=== PATIENT | female | born 1960 | race Caucasian/White ===

== ENCOUNTER → 2017-01-16 | Outpatient (CLI) | payer MEDICARE ==
--- NOTE | 2017-01-18 10:38 | MM ---
Reason for exam: screening (asymptomatic). Last mammogram was performed 1 year and 5 months ago. History: Patient is postmenopausal. 2 excisional biopsies of the left breast. Taking estrogen for 13 years beginning at age 39. Physical Findings: A clinical breast exam by your physician is recommended on an annual basis and results should be correlated with mammographic findings. MG 3D Screening Mammo W/Cad Bilateral CC and MLO view(s) were taken. Prior study comparison: August 12, 2015, bilateral MG 3d screening mammo w/cad. August 22, 2013, bilateral digital screening mammo w/CAD. The breast tissue is heterogeneously dense. This may lower the sensitivity of mammography. There is no discrete abnormality. No significant changes when compared with prior studies. ASSESSMENT: Negative, BI-RAD 1 RECOMMENDATION: Routine screening mammogram of both breasts in 1 year.
--- NOTE | 2017-01-18 14:24 | BD ---
EXAMINATION TYPE: MG DEXA axial skeleton. DATE OF EXAM: 01/16/2017 2:48 PM COMPARISON: NONE CLINICAL HISTORY: Height: 57.2 IN Weight: 142 LBS FRAX RISK QUESTIONS: Alcohol (3 or more units per day): NO Family History (Parent hip fracture): NO Glucocorticoids (More than 3mos): NO (Ex: prednisone, prednisolone, methylprednisolone, dexamethasone, and hydrocortisone). History of Fracture in Adulthood: NO Secondary Osteoporosis: 1. Type 1 Diabetes: NO 2. Hyperthyroidism: NO 3. Menopause before 45: AGE 38 4. Malnutrition: NO 5. Chronic liver disease: NO Rheumatoid Arthritis: NO Current Tobacco Use: NO RISK FACTORS HISTORY OF: Family History of Osteoporosis: MOTHER Active: YES Diet low in dairy products/other sources of calcium: YES Postmenopausal woman: AGE 38 Take estrogen and/or progesterone medications: YES How long: SINCE AGE 42 MEDICATIONS: Thyroid Medications: YES Which medication: Synthroid How Lon WEEKS Additional Medications: SYNTHROID, PREMARIN, LYRICA,CYMBALTA, PRILOSEC, ESTRAIAL, LYRICA, TORADOL, VO LTARIN GEL, XANAX Additional History: NO EXAM MEASUREMENTS: Bone mineral densitometry was performed using the [employer] System. Bone mineral density as measured about the Lumbar spine is: ----- L1-L4(G/cm2): 1.284 T Score Values are as follows: ----- L2: 0.5 ----- L3: 1.3 ----- L4: 0.9 ----- L1-L4: 0.9 Bone mineral density has: Increased 10.4% since study of: 01/14/2002 Bone mineral density about the R hip (g/cm2): 0.865 Bone mineral density about the L hip (g/cm2): 0.901 T Score values are as follows: -----R Neck: -1.2 -----L Neck: -1.0 -----R Total: -0.3 -----L Total: 0.3 Bone mineral density has: Decreased -3.0% since study of: 01/14/2002 IMPRESSION: Normal (Values between +1 and -1 indicate normal bone mass). Consider repeating this study in 5 year s or sooner if there is some new clinical indication. Bone density has improved 10.4% within the lumbar spine and diminished 3% within the bilateral hips c ompared to 01/14/2002 NOTE: T-SCORE=SD OF THE YOUNG ADULT MEAN.
== END | disposition home or self-care (01) ==
LOC: RADMAMWWP 14:44
PROVIDERS: ATTEND Family Medicine
DX: Z12.31 Encounter for screening mammogram for malignant neoplasm of breast (principal); Z13.820 Encounter for screening for osteoporosis
CPT/HCPCS: 77080; 77063; G0202; 71020

== ENCOUNTER → 2017-01-16 | Outpatient (CLI) | payer MEDICARE ==
--- NOTE | 2017-01-16 16:01 | XR ---
EXAMINATION TYPE: XR chest 2V DATE OF EXAM: 01/16/2017 3:55 PM COMPARISON: NONE TECHNIQUE: PA and lateral views submitted. HISTORY: Hypertension FINDINGS: The lungs are clear and there is no pneumothorax, pleural effusion, or focal pneumonia. Hypertrophi c change of the spine. Surgical clips in the abdomen. Linear changes involving the lung suggestive of scar or atelectasis. Arthropathy involving the shoulders. IMPRESSION: 1. No acute process.
== END ==
LOC: RADXRMAIN 15:38
PROVIDERS: ATTEND Family Medicine
DX: I10 Essential (primary) hypertension (principal); Z00.01 Encounter for general adult medical examination with abnormal findings
CPT/HCPCS: 71020

== ENCOUNTER → 2018-10-24 | Outpatient (CLI) | payer MEDICARE ==
--- NOTE | 2018-10-24 11:42 | XR ---
EXAMINATION TYPE: XR chest 2V DATE OF EXAM: 10/24/2018 COMPARISON: 01/16/2017 TECHNIQUE: PA and lateral views submitted. HISTORY: Presurgical FINDINGS: The lungs are clear and there is no pneumothorax, pleural effusion, or focal pneumonia. Linear beltre ges involving the lung bases are stable compatible with chronic atelectasis or scar. Hypertrophic and degenerative change of the spine. Mild hyperinflation lungs correlate for mild COPD. There is a hiat al hernia. Surgical clips in the upper abdomen are noted. IMPRESSION: 1. No acute process.
== END | disposition home or self-care (01) ==
LOC: RADXRMAIN 11:14
PROVIDERS: ATTEND Family Medicine
DX: Z01.818 Encounter for other preprocedural examination (principal)
CPT/HCPCS: 71046

== ENCOUNTER → 2019-05-12 | Outpatient (CLI) | payer MEDICARE ==
--- NOTE | 2019-05-14 08:59 | MM ---
Reason for exam: screening (asymptomatic). Last mammogram was performed 2 years and 4 months ago. History: Patient is postmenopausal. 2 benign excisional biopsies of the left breast. Taking estrogen for 13 years beginning at age 39. Physical Findings: A clinical breast exam by your physician is recommended on an annual basis and results should be correlated with mammographic findings. MG 3D Screening Mammo W/Cad Bilateral CC and MLO view(s) were taken. Prior study comparison: January 16, 2017, bilateral MG 3d screening mammo w/cad. August 12, 2015, bilateral MG 3d screening mammo w/cad. The breast tissue is heterogeneously dense. This may lower the sensitivity of mammography. No significant changes when compared with prior studies. ASSESSMENT: Negative, BI-RAD 1 RECOMMENDATION: Routine screening mammogram of both breasts in 1 year.
== END | disposition home or self-care (01) ==
LOC: RADMAMWWP 13:44
PROVIDERS: ATTEND Family Medicine
DX: Z12.31 Encounter for screening mammogram for malignant neoplasm of breast (principal)
CPT/HCPCS: 77063; 77067

== ENCOUNTER 2019-05-18 22:48 | Emergency (ER) | payer MEDICARE ==
--- NOTE | 2019-05-18 23:50 | ED ---
General Adult HPI - General Chief complaint: Neuro Symptoms/Deficit Stated complaint: Weakness, SOB Time Seen by Provider: 05/18/19 23:08 Source: patient Mode of arrival: ambulatory - History of Present Illness Initial comments: Dictation was produced using [employer] dictation software. please excuse any grammatical, word or spelling errors. Chief Complaint: 59-year-old male presents with generalized weakness and chest pain. History of Present Illness: Is a 51-year-old female past medical history dyslipidemia hypertension depression. She presents today with generalized. She noticed that her symptoms are worse in her arms. She presents today with who noticed that she is more weak than usual. Patient also complains of some mild chest pressure. She describes it as a squeezing sensation. She denies any cardiac history. Denies any established care with cardiology. Denies any radiation of symptoms to the shoulder or jaw. Patient has any exacerbating or mitigating features. The ROS documented in this emergency department record has been reviewed and confirmed by me. Those systems with pertinent positive or negative responses have been documented in the HPI. All other systems are other negative and/or noncontributory. PHYSICAL EXAM: General Impression: Alert and oriented x3, not in acute distress HEENT: Normocephalic atraumatic, extra-ocular movements intact, pupils equal and reactive to light bilaterally, mucous membranes moist. Cardiovascular: Heart regular rate and rhythm, S1&S2 audible, no murmurs, rubs or gallops Chest: Lungs clear to auscultation bilaterally, no rhonchi, no wheeze, no rales Abdomen: Bowel sounds present, abdomen soft, non-tender, non-distended, no organomegaly Musculoskeletal: Pulses present and equal in all extremities, no peripheral edema Motor: no focal deficits noted, diffuse weakness of all extremities Neurological: CN II-XII grossly intact, no focal motor or sensory deficits noted Skin: Intact with no visualized rashes Psych: Normal affect and mood ED course: 59-year-old female presents with generalized weakness and chest pain. Signs upon arrival are within acceptable limits. Patient has initial NIH of 0. She is weak in all extremities. She has no focal neurologic deficits. Clinical presentation is not consistent with strokelike symptoms. Computed tomography scan of the brain and chest x-ray is unremarkable. Laboratory evaluation obtained. Patient's hemoglobin is 11.2 which is around her patient's baseline. Metabolic panel is unremarkable. Patient has slight elevation of alkaline phosphatase. Urinalysis is unremarkable. She reevaluated bedside with stable medical condition. Patient's lab results and imaging results were discussed with the patient to be unremarkable. At this point no concern for serious life-threatening illness causing patient's symptoms. She does appear to be ambulatory with minimal complications. sHe continues to not have any focal neurologic deficits. Agreeable for discharge. She is told to follow-up with her primary care physician regarding further workup for generalized weakness. Return parameters discussed. EKG interpretation: Ventricular rate 94, normal sinus rhythm,. Interval 156, Q 78, QTc 447. No old EKG for comparison. There is T-wave inversions in lead 3. - Related Data Home Medications Medication Instructions Recorded Confirmed DULoxetine HCL [Cymbalta] 60 mg PO DAILY 08/17/14 05/18/19 Estradiol [Estrace] 1 mg PO DAILY 08/17/14 05/18/19 Omeprazole [PriLOSEC] 20 mg PO DAILY 08/17/14 05/18/19 ALPRAZolam [Xanax] 0.5 mg PO HS 05/18/19 05/18/19 DULoxetine HCL [Cymbalta] 30 mg PO DAILY 05/18/19 05/18/19 Levothyroxine Sodium [Synthroid] 25 mcg PO DAILY 05/18/19 05/18/19 Nebivolol [Bystolic] 5 mg PO BID 05/18/19 05/18/19 Pregabalin [Lyrica] 225 mg PO HS 05/18/19 05/18/19 tiZANidine [Zanaflex] 2 - 3 mg PO HS 05/18/19 05/18/19 Allergies Allergy/AdvReac Type Severity Reaction Status Date / Time codeine Allergy Nausea & Verified 05/18/19 23:13 Vomiting Sulfa (Sulfonamide Allergy Rash/Hives Verified 05/18/19 23:13 Antibiotics) Review of Systems ROS Statement: Those systems with pertinent positive or pertinent negative responses have been documented in the HPI. ROS Other: All systems not noted in ROS Statement are negative. Past Medical History Past Medical History: Hyperlipidemia, Hypertension Additional Past Medical History / Comment(s): migraines episodic biliary colic as a result from choledocholithiasis with gravel from the last ERCP 7 years ago History of Any Multi-Drug Resistant Organisms: None Reported Past Surgical History: Section, Cholecystectomy, Hysterectomy Additional Past Surgical History / Comment(s): thorasic outlet surgery, right s houlder surgery, ERCP 7 years ago Past Anesthesia/Blood Transfusion Reactions: No Reported Reaction Past Psychological History: Depression Smoking Status: Never smoker Past Alcohol Use History: Rare Past Drug Use History: None Reported Course Vital Signs 05/18/19 05/18/19 05/18/19 22:51 23:10 23:42 Temperature 97.8 F 97.6 F Pulse Rate 98 86 90 Respiratory 16 18 18 Rate Blood Pressure 137/76 145/95 136/88 O2 Sat by Pulse 99 99 Oximetry 05/19/19 00:39 Temperature 97.7 F Pulse Rate 80 Respiratory 16 Rate Blood Pressure 125/82 O2 Sat by Pulse 100 Oximetry Medical Decision Making - Lab Data Result diagrams: 05/19/19 00:43 05/19/19 00:43 Lab Results 05/18/19 05/19/19 05/19/19 Range/Units 23:36 00:43 00:43 WBC 7.0 (3.8-10.6) k/uL RBC 4.33 (3.80-5.40) m/uL Hgb 11.2 L (11.4-16.0) gm/dL Hct 33.1 L (34.0-46.0) % MCV 76.3 L (80.0-100.0) fL MCH 26.0 (25.0-35.0) pg MCHC 34.0 (31.0-37.0) g/dL RDW 17.7 H (11.5-15.5) % Plt Count 253 (150-450) k/uL Neutrophils % 63 % Lymphocytes % 26 % Monocytes % 8 % Eosinophils % 1 % Basophils % 0 % Neutrophils # 4.4 (1.3-7.7) k/uL Lymphocytes # 1.8 (1.0-4.8) k/uL Monocytes # 0.5 (0-1.0) k/uL Eosinophils # 0.1 (0-0.7) k/uL Basophils # 0.0 (0-0.2) k/uL Anisocytosis Slight Microcytosis Slight Sodium 140 (137-145) mmol/L Potassium 4.6 (3.5-5.1) mmol/L Chloride 106 (98-107) mmol/L Carbon Dioxide 25 (22-30) mmol/L Anion Gap 9 mmol/L BUN 14 (7-17) mg/dL Creatinine 0.92 (0.52-1.04) mg/dL Est GFR (CKD-EPI)AfAm 80 (>60 ml/min/1.73 sqM) Est GFR (CKD-EPI)NonAf 69 (>60 ml/min/1.73 sqM) Glucose 88 (74-99) mg/dL Calcium 9.3 (8.4-10.2) mg/dL Phosphorus 4.0 (2.5-4.5) mg/dL Magnesium 2.1 (1.6-2.3) mg/dL Total Bilirubin 0.3 (0.2-1.3) mg/dL AST 26 (14-36) U/L ALT 14 (9-52) U/L Alkaline Phosphatase 141 H (38-126) U/L Total Protein 7.0 (6.3-8.2) g/dL Albumin 3.9 (3.5-5.0) g/dL Urine Color Light Yellow Urine Appearance Clear (Clear) Urine pH 5.5 (5.0-8.0) Ur Specific [place] 1.004 (1.001-1.035) Urine Protein Negative (Negative) Urine Glucose (UA) Negative (Negative) Urine Ketones Negative (Negative) Urine Blood Negative (Negative) Urine Nitrite Negative (Negative) Urine Bilirubin Negative (Negative) Urine Urobilinogen <2.0 (<2.0) mg/dL Ur Leukocyte Esterase Negative (Negative) Disposition Clinical Impression: Generalized weakness Disposition: HOME SELF-CARE Condition: Good Instructions (If sedation given, give patient instructions): Weakness (ED) Is patient prescribed a controlled substance at d/c from ED?: No Referrals: Pratik Martines DO [Primary Care Provider] - 1-2 days Time of Disposition: 01:57
[2019-05-18 23:59] LABS: Appearance,Urine Clear (Clear); Bilirubin,Urine Negative (Negative); Blood,Urine Negative (Negative); Color,Urine Light Yellow; Glucose,Urine (UA) Negative (Negative); Ketones,Urine Negative (Negative); Leukocyte Esterase,Urine Negative (Negative); Nitrite,Urine Negative (Negative); PH, Urine 5.5 (5.0-8.0); Protein,Urine Negative (Negative); Specific Gravity,Urine 1.004 (1.001-1.035); Urobilinogen,Urine <2.0 mg/dL (<2.0)
--- NOTE | 2019-05-19 00:32 | XR ---
EXAMINATION TYPE: XR chest 1V portable DATE OF EXAM: 05/19/2019 COMPARISON: 10/24/2018 HISTORY: Weakness TECHNIQUE: Single frontal view of the chest is obtained. FINDINGS: Upright view shows no heart failure nor confluent pneumonic infiltrate. Costophrenic angle s are clear. There are chest leads. IMPRESSION: No active cardiopulmonary disease. Borderline cardiomegaly. No significant change.
--- NOTE | 2019-05-19 00:34 | CT ---
EXAMINATION TYPE: CT brain wo con DATE OF EXAM: 05/19/2019 COMPARISON: 08/25/2009 HISTORY: WEAKNESS CT DLP: 1076.40 mGycm Automated exposure control for dose reduction was used. FINDINGS: Ventricles have normal size. There is no mass effect nor midline shift. There is no sign of intracran ial hemorrhage. Calvarium is intact. There is no sign of cerebral edema. IMPRESSION: NEGATIVE HEAD CT SCAN. NO SIGNIFICANT CHANGE.
[2019-05-19 01:18] LABS: Anisocytosis Slight; Basophils % (A) 0 %; Eosinophils # (A) 0.1 k/uL (0-0.7); Eosinophils % (A) 1 %; HCT 33.1 % (34.0-46.0); HGB 11.2 gm/dL (11.4-16.0); Lymphocytes # (A) 1.8 k/uL (1.0-4.8); Lymphocytes % (A) 26 %; MCV 76.3 fL (80.0-100.0); Microcytosis Slight; Monocytes # (A) 0.5 k/uL (0-1.0); Monocytes % (A) 8 %; Neutrophils # (A) 4.4 k/uL (1.3-7.7); Neutrophils % (A) 63 %; Platelet Count 253 k/uL (150-450); RBC 4.33 m/uL (3.80-5.40); RDW 17.7 % (11.5-15.5)
[2019-05-19 01:47] LABS: Albumin 3.9 g/dL (3.5-5.0); Calcium 9.3 mg/dL (8.4-10.2); Magnesium 2.1 mg/dL (1.6-2.3); Potassium 4.6 mmol/L (3.5-5.1); Total Bilirubin 0.3 mg/dL (0.2-1.3)
[2019-05-19 02:49] VITALS: BP 135/71; PULSE 86; RESP 17; TEMP 98.1
== END 2019-05-19 02:30 | disposition home or self-care (01) ==
LOC: EC 22:48
DX: R53.1 Weakness (principal); R06.02 Shortness of breath; R07.89 Other chest pain; I10 Essential (primary) hypertension; F32.9 Major depressive disorder, single episode, unspecified; Z79.899 Other long term (current) drug therapy; Z79.890 Hormone replacement therapy; Z88.2 Allergy status to sulfonamides; Z88.5 Allergy status to narcotic agent
CPT/HCPCS: 36415; 70450; 71045; 80053; 81003; 83735; 84100; 84484; 85025; 85610; 93005; 99285

== ENCOUNTER 2020-04-18 21:00 | Observation (INO) | payer MEDICARE ==
[2020-04-18] MEDS ORDERED: SODIUM CHLORIDE 0.9% 500 ML 500 ML IV STA (21:04)
[2020-04-18 21:19] LABS: Glucose,Whole Blood 85 mg/dL (75-99)
[2020-04-18 21:24] LABS: Basophils % (A) 1 %; Eosinophils # (A) 0.1 k/uL (0-0.7); Eosinophils % (A) 2 %; HCT 37.6 % (34.0-46.0); HGB 12.2 gm/dL (11.4-16.0); Lymphocytes # (A) 1.6 k/uL (1.0-4.8); Lymphocytes % (A) 35 %; MCH 29.3 pg (25.0-35.0); MCHC 32.6 g/dL (31.0-37.0); MCV 89.8 fL (80.0-100.0); Mean Platelet Volume 7.2; Monocytes # (A) 0.3 k/uL (0-1.0); Monocytes % (A) 6 %; Neutrophils # (A) 2.4 k/uL (1.3-7.7); Neutrophils % (A) 54 %; Platelet Count 183 k/uL (150-450); RBC 4.18 m/uL (3.80-5.40); RDW 14.7 % (11.5-15.5); WBC 4.5 k/uL (3.8-10.6)
[2020-04-18 21:35] LABS: ALT 17 U/L (4-34); AST 25 U/L (14-36); African American GFR (CKD) >90 (>60 ml/min/1.73 sqM); Albumin 3.7 g/dL (3.5-5.0); Alcohol <10 mg/dL; Alkaline Phosphatase 93 U/L (38-126); Anion Gap 4 mmol/L; Blood Urea Nitrogen 9 mg/dL (7-17); Carbon Dioxide 24 mmol/L (22-30); Chloride 109 mmol/L (98-107); Glucose 95 mg/dL (74-99); INR 0.9 (<1.2); Non-African American GFR(CKD) 80 (>60 ml/min/1.73 sqM); Partial Thromboplastin Time 25.7 sec (22.0-30.0); Prothrombin Time 9.7 sec (9.0-12.0); Sodium 137 mmol/L (137-145); Total Bilirubin 0.3 mg/dL (0.2-1.3); Total Protein 6.4 g/dL (6.3-8.2)
--- NOTE | 2020-04-18 21:35 | CT ---
EXAMINATION TYPE: CT brain wo con DATE OF EXAM: 04/18/2020 COMPARISON: 05/19/2019 HISTORY: Syncope. CT DLP: 1086.4 mGycm Automated exposure control for dose reduction was used. Ventricles have normal size. There is no mass effect nor midline shift. There is no sign of intracran ial hemorrhage. There is mild cerebral atrophy. Calvarium is intact. There is no evidence of cerebral edema. IMPRESSION: Negative unenhanced head CT scan. No change.
--- NOTE | 2020-04-18 21:37 | XR ---
EXAMINATION TYPE: XR chest 2V DATE OF EXAM: 04/18/2020 COMPARISON: 05/19/2019 HISTORY: Syncope TECHNIQUE: FINDINGS: There is no heart failure nor confluent pneumonic infiltrate. Costophrenic angles are clear . Heart is probably enlarged. There are chest leads. Bony thorax is intact. IMPRESSION: Mild cardiomegaly. No active cardiopulmonary disease. No change.
--- NOTE | 2020-04-18 21:45 | ED ---
General Adult HPI - General Chief complaint: Syncope Stated complaint: weakness Time Seen by Provider: 04/18/20 21:04 Source: patient, EMS Mode of arrival: EMS Limitations: no limitations - History of Present Illness Initial comments: Patient presents the ED by ambulance for evaluation. Patient states she became weak and lightheaded while sitting down and playing cards tonight, and she states that she then had a syncopal episode. Patient states that she was slumped over to her right side and unable to hold up her head prior to her syncopal episode, but it is unclear whether or not she had focal weakness. Patient states that she has had some chest pressure since her syncopal episode. Per EMS, the patient had no focal weakness or neuro deficit on their initial evaluation, and she continues to have no focal deficit. Patient took 2 baby aspirin prior to EMS arrival, and she was given another 2 baby aspirin by EMS. Patient was also given a dose of nitroglycerin by EMS. Patient states that her chest pressure has now improved. Patient denies trauma or injury, fever or chills, headache, head injury, sensory deficit, visual changes, speech difficulty, neck/back/extremity pain, dyspnea, pleuritic pain, cough or cold symptoms, palpitations, abdominal pain, nausea/vomiting/diarrhea, bloody or melanotic stool, dysuria or urinary symptoms, leg or calf swelling or pain, or any other symptoms or complaints. - Related Data Home Medications Medication Instructions Recorded Confirmed DULoxetine HCL [Cymbalta] 60 mg PO DAILY 08/17/14 05/18/19 Omeprazole [PriLOSEC] 20 mg PO DAILY 08/17/14 05/18/19 estradioL [Estrace] 1 mg PO DAILY 08/17/14 05/18/19 ALPRAZolam [Xanax] 0.5 mg PO HS 05/18/19 05/18/19 DULoxetine HCL [Cymbalta] 30 mg PO DAILY 05/18/19 05/18/19 Levothyroxine Sodium [Synthroid] 25 mcg PO DAILY 05/18/19 05/18/19 Nebivolol [Bystolic] 5 mg PO BID 05/18/19 05/18/19 Pregabalin [Lyrica] 225 mg PO HS 05/18/19 05/18/19 tiZANidine [Zanaflex] 2 - 3 mg PO HS 05/18/19 05/18/19 Allergies Allergy/AdvReac Type Severity Reaction Status Date / Time codeine Allergy Nausea & Verified 05/18/19 23:13 Vomiting Sulfa (Sulfonamide Allergy Rash/Hives Verified 05/18/19 23:13 Antibiotics) Review of Systems ROS Statement: Those systems with pertinent positive or pertinent negative responses have been documented in the HPI. ROS Other: All systems not noted in ROS Statement are negative. Past Medical History Past Medical History: Hyperlipidemia, Hypertension Additional Past Medical History / Comment(s): migraines episodic biliary colic as a result from choledocholithiasis with gravel from the last ERCP 7 years ago History of Any Multi-Drug Resistant Organisms: None Reported Past Surgical History: Section, Cholecystectomy, Hysterectomy Additional Past Surgical History / Comment(s): thorasic outlet surgery, right shoulder surgery, ERCP 7 years ago Past Anesthesia/Blood Transfusion Reactions: No Reported Reaction Past Psychological History: Depression Smoking Status: Never smoker Past Alcohol Use History: Rare Past Drug Use History: None Reported General Exam Limitations: no limitations General appearance: alert, in no apparent distress Head exam: Present: atraumatic, normocephalic Eye exam: Present: normal appearance, PERRL, EOMI ENT exam: Present: mucous membranes moist Neck exam: Present: other (Trachea is in midline). Absent: tenderness, meningismus Respiratory exam: Present: normal lung sounds bilaterally. Absent: respiratory distress, wheezes, rales, rhonchi Cardiovascular Exam: Present: regular rate, normal rhythm, normal heart sounds, other (Normal radial pulses bilaterally) GI/Abdominal exam: Present: soft. Absent: distended, tenderness, guarding Extremities exam: Present: full ROM. Absent: tenderness, pedal edema, calf tenderness Neurological exam: Present: alert, oriented X3, CN II-XII intact. Absent: motor sensory deficit Psychiatric exam: Present: normal affect, normal mood Skin exam: Present: warm, dry, intact, normal color Course Vital Signs 04/18/20 04/18/20 21:04 22:00 Temperature 97.9 F Pulse Rate 66 74 Respiratory 18 16 Rate Blood Pressure 179/94 148/87 O2 Sat by Pulse 99 97 Oximetry - Reevaluation(s) Reevaluation #1: 04/18/20 22:35 Case, H&P, test results and prehospital management were discussed with Dr. Massey. He accepts hospital admission. He has no further recommendations at this time. 04/18/20 23:00 Patient denies development of any new pain or symptoms while in the ED. Patient states that her chest pain has now improved. Patient remains alert and breathing comfortably with a normal room air oxygen saturation. Patient continues to have a nonfocal and normal neurological exam. Patient and are aware the patient's test results, and patient agrees with hospital admission at this time. EKG Findings - EKG Comments: EKG Findings:: Normal sinus rhythm, ventricular rate of 65 bpm, normal WA and QRS intervals, normal QT interval, normal axis, voltage criteria for LVH, no significant change when compared to 05/18/2019 EKG Medical Decision Making - Medical Decision Making Patient's EKG, head CT, chest x-ray and labwork are all fairly unremarkable. Patient has a normal and nonfocal neurological exam, and I do not suspect CVA/TIA. Will admit the patient to the hospital for further evaluation and monitoring given her syncope and chest pain. Dr. Massey has accepted hospital admission. - Lab Data Result diagrams: 04/18/20 21:08 04/18/20 21:08 Lab Results 04/18/20 04/18/20 04/18/20 Range/Units 21:03 21:08 21:08 WBC 4.5 (3.8-10.6) k/uL RBC 4.18 (3.80-5.40) m/uL Hgb 12.2 (11.4-16.0) gm/dL Hct 37.6 (34.0-46.0) % MCV 89.8 (80.0-100.0) fL MCH 29.3 (25.0-35.0) pg MCHC 32.6 (31.0-37.0) g/dL RDW 14.7 (11.5-15.5) % Plt Count 183 (150-450) k/uL Neutrophils % 54 % Lymphocytes % 35 % Monocytes % 6 % Eosinophils % 2 % Basophils % 1 % Neutrophils # 2.4 (1.3-7.7) k/uL Lymphocytes # 1.6 (1.0-4.8) k/uL Monocytes # 0.3 (0-1.0) k/uL Eosinophils # 0.1 (0-0.7) k/uL Basophils # 0.0 (0-0.2) k/uL PT 9.7 (9.0-12.0) sec INR 0.9 (<1.2) APTT 25.7 (22.0-30.0) sec Sodium (137-145) mmol/L Potassium (3.5-5.1) mmol/L Chloride (98-107) mmol/L Carbon Dioxide (22-30) mmol/L Anion Gap mmol/L BUN (7-17) mg/dL Creatinine (0.52-1.04) mg/dL Est GFR (CKD-EPI)AfAm (>60 ml/min/1.73 sqM) Est GFR (CKD-EPI)NonAf (>60 ml/min/1.73 sqM) Glucose (74-99) mg/dL POC Glucose (mg/dL) 85 (75-99) mg/dL POC Glu Storage [employer] Clerk ID Sally Vargas Calcium (8.4-10.2) mg/dL Magnesium (1.6-2.3) mg/dL Total Bilirubin (0.2-1.3) mg/dL AST (14-36) U/L ALT (4-34) U/L Alkaline Phosphatase (38-126) U/L Troponin I (0.000-0.034) ng/mL Total Protein (6.3-8.2) g/dL Albumin (3.5-5.0) g/dL Urine Color Urine Appearance (Clear) Urine pH (5.0-8.0) Ur Specific [place] (1.001-1.035) Urine Protein (Negative) Urine Glucose (UA) (Negative) Urine Ketones (Negative) Urine Blood (Negative) Urine Nitrite (Negative) Urine Bilirubin (Negative) Urine Urobilinogen (<2.0) mg/dL Ur Leukocyte Esterase (Negative) Serum Alcohol mg/dL 04/18/20 04/18/20 04/18/20 Range/Units 21:08 21:08 21:08 WBC (3.8-10.6) k/uL RBC (3.80-5.40) m/uL Hgb (11.4-16.0) gm/dL Hct (34.0-46.0) % MCV (80.0-100.0) fL MCH (25.0-35.0) pg MCHC (31.0-37.0) g/dL RDW (11.5-15.5) % Plt Count (150-450) k/uL Neutrophils % % Lymphocytes % % Monocytes % % Eosinophils % % Basophils % % Neutrophils # (1.3-7.7) k/uL Lymphocytes # (1.0-4.8) k/uL Monocytes # (0-1.0) k/uL Eosinophils # (0-0.7) k/uL Basophils # (0-0.2) k/uL PT (9.0-12.0) sec INR (<1.2) APTT (22.0-30.0) sec Sodium 137 (137-145) mmol/L Potassium 4.0 (3.5-5.1) mmol/L Chloride 109 H (98-107) mmol/L Carbon Dioxide 24 (22-30) mmol/L Anion Gap 4 mmol/L BUN 9 (7-17) mg/dL Creatinine 0.81 (0.52-1.04) mg/dL Est GFR (CKD-EPI)AfAm >90 (>60 ml/min/1.73 sqM) Est GFR (CKD-EPI)NonAf 80 (>60 ml/min/1.73 sqM) Glucose 95 (74-99) mg/dL POC Glucose (mg/dL) (75-99) mg/dL POC Glu Storage [employer] Clerk ID Calcium 9.0 (8.4-10.2) mg/dL Magnesium 2.0 (1.6-2.3) mg/dL Total Bilirubin 0.3 (0.2-1.3) mg/dL AST 25 (14-36) U/L ALT 17 (4-34) U/L Alkaline Phosphatase 93 (38-126) U/L Troponin I <0.012 (0.000-0.034) ng/mL Total Protein 6.4 (6.3-8.2) g/dL Albumin 3.7 (3.5-5.0) g/dL Urine Color Light Yellow Urine Appearance Clear (Clear) Urine pH 5.5 (5.0-8.0) Ur Specific [place] 1.006 (1.001-1.035) Urine Protein Negative (Negative) Urine Glucose (UA) Negative (Negative) Urine Ketones Negative (Negative) Urine Blood Negative (Negative) Urine Nitrite Negative (Negative) Urine Bilirubin Negative (Negative) Urine Urobilinogen <2.0 (<2.0) mg/dL Ur Leukocyte Esterase Negative (Negative) Serum Alcohol <10 mg/dL - Radiology Data Radiology results: report reviewed (Noncontrast head CT is negative), image reviewed (Chest x-ray is negative) Disposition Clinical Impression: Syncope, Chest pain, Weakness Disposition: ADMITTED IP TO THIS [facility] Condition: Stable Is patient prescribed a controlled substance at d/c from ED?: No Time of Disposition: 22:37
[2020-04-18 22:54] LABS: Appearance,Urine Clear (Clear); Bilirubin,Urine Negative (Negative); Blood,Urine Negative (Negative); Color,Urine Light Yellow; Glucose,Urine (UA) Negative (Negative); Ketones,Urine Negative (Negative); Leukocyte Esterase,Urine Negative (Negative); Nitrite,Urine Negative (Negative); PH, Urine 5.5 (5.0-8.0); Protein,Urine Negative (Negative); Specific Gravity,Urine 1.006 (1.001-1.035); Urobilinogen,Urine <2.0 mg/dL (<2.0)
[2020-04-19] MEDS: SODIUM CHLORIDE 0.9% 1,000 ML IV SCH ×2 (01:44→11:15)
[2020-04-19] MEDS ORDERED: ALPRAZolam 0.25 MG TAB PO PRN (03:00)
[2020-04-19 03:35] LABS: Basophils % (A) 1 %; Eosinophils # (A) 0.1 k/uL (0-0.7); Eosinophils % (A) 1 %; HCT 37.5 % (34.0-46.0); Lymphocytes # (A) 1.9 k/uL (1.0-4.8); Lymphocytes % (A) 38 %; MCH 29.2 pg (25.0-35.0); MCV 91.4 fL (80.0-100.0); Mean Platelet Volume 7.4; Monocytes # (A) 0.4 k/uL (0-1.0); Monocytes % (A) 7 %; Neutrophils # (A) 2.5 k/uL (1.3-7.7); Neutrophils % (A) 51 %; Platelet Count 213 k/uL (150-450); RBC 4.11 m/uL (3.80-5.40); RDW 14.7 % (11.5-15.5); WBC 4.9 k/uL (3.8-10.6)
[2020-04-19 03:42] LABS: ALT 16 U/L (4-34); AST 25 U/L (14-36); African American GFR (CKD) >90 (>60 ml/min/1.73 sqM); Albumin 3.4 g/dL (3.5-5.0); Alkaline Phosphatase 86 U/L (38-126); Anion Gap 5 mmol/L; Blood Urea Nitrogen 7 mg/dL (7-17); Calcium 8.6 mg/dL (8.4-10.2); Carbon Dioxide 24 mmol/L (22-30); Chloride 109 mmol/L (98-107); Glucose 91 mg/dL (74-99); Non-African American GFR(CKD) >90 (>60 ml/min/1.73 sqM); Sodium 138 mmol/L (137-145); Total Bilirubin 0.3 mg/dL (0.2-1.3)
[2020-04-19] MEDS: LEVOTHYROXINE 25 MCG TAB PO SCH (06:27)
[2020-04-19] MEDS ORDERED: KETOROLAC 30 MG/ML 1 ML VIAL IM PRN (09:00)
[2020-04-19] MEDS ORDERED: hydrALAZINE HCL 25 MG TAB PO PRN (09:42)
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
[2020-04-19] MEDS: DULoxetine HCL 60 MG CAPSULE.DR PO SCH (10:05)
[2020-04-19] MEDS: DULoxetine HCL 30 MG CAPSULE.DR PO SCH (10:06)
[2020-04-19] MEDS: PANTOPRAZOLE 40 MG TABLET PO SCH (10:06)
[2020-04-19] MEDS: NEBIVOLOL 5 MG TAB PO SCH ×2 (10:06→20:11)
[2020-04-19] MEDS: ASPIRIN 81 MG PO SCH (10:06)
[2020-04-19] MEDS: ATORVASTATIN 40 MG TAB PO SCH (10:07)
--- NOTE | 2020-04-19 12:05 | ECHOF ---
Referral Reason:htn MEASUREMENTS -------- HEIGHT: 147.3 cm WEIGHT: 72.6 kg BP: 145/80 RVIDd: 3.0 cm (< 3.3) IVSd: 1.2 cm (0.6 - 1.1) LVIDd: 3.6 cm (3.9 - 5.3) LVPWd: 1.2 cm (0.6 - 1.1) IVSs: 1.5 cm LVIDs: 2.5 cm LVPWs: 1.7 cm LAESV Index (A-L): 26.33 ml/m Ao Diam: 2.9 cm (2.0 - 3.7) AV Cusp: 1.9 cm (1.5 - 2.6) MV EXCURSION: 14.883 mm (> 18.000) MV EF SLOPE: 66 mm/s (70 - 150) EPSS: 0.4 cm MV E Nathan: 0.84 m/s MV DecT: 216 ms MV A Nathan: 0.90 m/s MV E/A Ratio: 0.93 AR PHT: 650 ms RAP: 5.00 mmHg RVSP: 24.37 mmHg FINDINGS -------- Sinus rhythm. This was a technically adequate study. The left ventricular size is normal. There is mild concentric left ventricular hypertrophy. There is normal global left ventricular contractility. Overall left ventricular systolic function is nor mal with, an EF between 55 - 60 %. The diastolic filling pattern is normal for the age of the patie nt {E/E'}. The right ventricle is normal in size. Normal LA size by volume 22+/-6 ml/m2. The right atrium was not well visualized. Interatrial and interventricular septum intact. The aortic valve is trileaflet and appears structurally normal. There is moderate aortic regurgitat ion. There is no evidence of aortic stenosis. The mitral valve is normal. [id number] mitral regurgitation is present. Mild tricuspid regurgitation present. Right ventricular systolic pressure is normal at < 35 mmHg. The right ventricular systolic pressure, as measured by Doppler, is 24.37mmHg. There is no pulmonic regurgitation present. The aortic root size is normal. Normal inferior vena cava with normal inspiratory collapse consistent with estimated right atrial pre ssure of 5 mmHg. There is no pericardial effusion. CONCLUSIONS -------- 1. There is mild concentric left ventricular hypertrophy. 2. There is normal global left ventricular contractility. 3. Overall left ventricular systolic function is normal with, an EF between 55 - 60 %. 4. Normal LA size by volume 22+/-6 ml/m2. 5. The aortic valve is trileaflet and appears structurally normal. 6. There is moderate aortic regurgitation. 7. Rvaq-ua-umakrttu mitral regurgitation is present. 8. Mild tricuspid regurgitation present. 9. There is no pericardial effusion. LINUX SERVER ENGINEER: Brandie Nelson RDCS
--- NOTE | 2020-04-19 12:16 | US ---
EXAMINATION TYPE: US carotid duplex BILAT DATE OF EXAM: 04/19/2020 COMPARISON: NONE CLINICAL HISTORY: TIA. EXAM MEASUREMENTS: RIGHT: Peak Systolic Velocity (PSV) cm/sec ----- Right CCA: 47.6 ----- Right ICA: 75.7 ----- Right ECA: 65.8 ICA/CCA ratio: 1.6 RIGHT: End Diastole cm/sec ----- Right CCA: 14.9 ----- Right ICA: 24.1 ----- Right ECA: 12.0 LEFT: Peak Systolic Velocity (PSV) cm/sec ----- Left CCA: 84.5 ----- Left ICA: 134.5 ----- Left ECA: 74.6 ICA/CCA ratio: 1.6 LEFT: End Diastole cm/sec ----- Left CCA: 29.6 ----- Left ICA: 39.3 ----- Left ECA: 7.6 VERTEBRALS (direction of flow): Right Vertebral: Antegrade Left Vertebral: Antegrade Rhythm: Normal No significant stenosis seen. IMPRESSION: No hemodynamically significant stenosis of the bilateral carotid arteries. Any stenosi s may be present is less than 50%. Criteria for Assigning % of Stenosis / Diameter reduction (Estimation based on the indirect measurements of the internal carotid artery velocities (ICA PSV). 1. Normal (no stenosis)=ICA PSV < 125 cm/s: ratio < 2.0: ICA EDV<40 cm/s. 2. Less than 50% stenosis=ICA PSV < 125 cm/s: ratio < 2.0: ICA EDV<40 cm/s. 3. 50 to 69% stenosis=ICA PSV of 125 to 230 cm/s: ration 2.0 ? 4.0: ICA EDV 40-100 cm/s. 4. Greater than 70% stenosis to near occlusion= ICA PSV > 230 cm/s: ratio > 4.0: ICA EDV > 100 cm/s. 5. Near occlusion= ICA PSV velocities may be low or undetectable: variable ratio and ICA EDV. 6. Total occlusion=unable to detect flow.
--- NOTE | 2020-04-19 12:24 | CONS ---
CONSULTATION Mrs. Ardon is a 60-year-old female with a known history of hypertension who presented with an episode of right upper extremity weakness as well as slurred speech. It occurred while she was sitting. Subsequently felt quite dizzy and presyncopal. At this time, she is pain free. She felt some palpitation in the chest and some fluttering and she site had some chest heaviness at that time, but not in the past. The patient is not very active physically because of severe arthritic pain in the right hip. She has no prior history of cardiac disease. She was at [facility] about 2 months ago and at that time was stable from the cardiac standpoint. According to her, she was scheduled to be seen by Dr. Bruner as an outpatient. She denies any documented malignant arrhythmia or atrial fibrillation. She has no history of coronary artery disease. She has no syncope, peripheral edema. No PND or orthopnea. No syncope. The episode occurred yesterday while she was playing cards. She called her but had the slurred speech and she had the weakness in the right upper extremity, she could not keep it up. She has no prior history of stroke according to her. Her coronary risk factors are remarkable for hypertension, she is nondiabetic, nonsmoker. Her lipid profile is not available. Her medication at home, Zanaflex, Estrace, Lyrica, Prilosec, Bystolic, Synthroid, Cymbalta, and Xanax on a p.r.n. basis. REVIEW OF SYSTEMS: RESPIRATORY SYSTEM: She has no recent wheezing or cough. No history of documented obstructive lung disease. GI SYSTEM: No recent GI bleeding, no peptic ulcer disease. SYSTEM: No dysuria or hematuria. NERVOUS SYSTEM: No stroke or seizure. PHYSICAL EXAMINATION: She is a 60-year-old female, alert, oriented, in no apparent distress. Blood pressure 145/80 with a heart rate in the 70s. HEAD: Normocephalic. EYES: Sclerae nonicteric. NECK: Good upstroke, no bruit, no jugular venous distention. LUNGS: Clear to auscultation. HEART: Regular rate and rhythm, S1, S2. No S3. No S4. No murmur or rub. ABDOMEN: Soft, nontender, positive bowel sounds, no organomegaly. EXTREMITIES: No edema, intact pulses. LAB DATA: Revealed BUN and creatinine 7 and 0.65, potassium 4.0, hemoglobin of 12. A troponin less than 0.012 for 3 samples. EKG revealed a sinus mechanism, normal axis and intervals with minor nonspecific ST-T wave changes with evidence of left ventricular hypertrophy. Chest x-ray shows no acute infiltrate. CT scan revealed no acute lesion. IMPRESSION: 1. Probable TIA with right upper extremity weakness and slurred speech, resolved. 2. Hypertension. 3. Symptoms of palpitation, but no evidence of documented arrhythmia. 4. Chest discomfort, has atypical features for ischemic heart disease, no evidence for acute coronary artery syndrome. RECOMMENDATION: I will add to her regimen an aspirin daily and will also start her on a statin. I will obtain an echocardiogram with Doppler, increase her level activity. The patient may require neurological evaluation. She is scheduled to undergo a carotid duplex scan. If she remains stable from the cardiac standpoint, she may be able to be discharged home and followed as an outpatient with Dr. Bruner. Thank you for this consult. Will follow with you. MMODL / IJN: [id number] /
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
[2020-04-19] MEDS ORDERED: tiZANidine 4 MG TAB PO SCH (21:00)
[2020-04-19] MEDS ORDERED: ALPRAZolam 0.5 MG TAB PO SCH (21:00)
[2020-04-19] MEDS ORDERED: PREGABALIN 75 MG CAP PO SCH (21:00)
[2020-04-20] MEDS: SODIUM CHLORIDE 0.9% 1,000 ML IV SCH (01:33)
[2020-04-20 04:16] VITALS: RESP 16
[2020-04-20] MEDS: LEVOTHYROXINE 25 MCG TAB PO SCH (06:21)
[2020-04-20 06:35] LABS: Basophils % (A) 1 %; Eosinophils # (A) 0.1 k/uL (0-0.7); Eosinophils % (A) 2 %; HCT 37.9 % (34.0-46.0); Lymphocytes # (A) 1.5 k/uL (1.0-4.8); Lymphocytes % (A) 34 %; MCH 28.7 pg (25.0-35.0); MCHC 31.7 g/dL (31.0-37.0); MCV 90.8 fL (80.0-100.0); Mean Platelet Volume 7.2; Monocytes # (A) 0.3 k/uL (0-1.0); Monocytes % (A) 6 %; Neutrophils # (A) 2.4 k/uL (1.3-7.7); Neutrophils % (A) 55 %; Platelet Count 182 k/uL (150-450); RBC 4.18 m/uL (3.80-5.40); RDW 14.8 % (11.5-15.5); WBC 4.3 k/uL (3.8-10.6)
[2020-04-20 06:52] LABS: ALT 17 U/L (4-34); AST 24 U/L (14-36); African American GFR (CKD) >90 (>60 ml/min/1.73 sqM); Albumin 3.2 g/dL (3.5-5.0); Alkaline Phosphatase 84 U/L (38-126); Anion Gap 3 mmol/L; Blood Urea Nitrogen 7 mg/dL (7-17); Calcium 8.6 mg/dL (8.4-10.2); Carbon Dioxide 25 mmol/L (22-30); Chloride 112 mmol/L (98-107); Glucose 88 mg/dL (74-99); Non-African American GFR(CKD) >90 (>60 ml/min/1.73 sqM); Potassium 4.1 mmol/L (3.5-5.1); Sodium 140 mmol/L (137-145); Total Bilirubin 0.3 mg/dL (0.2-1.3); Total Protein 5.6 g/dL (6.3-8.2)
[2020-04-20 07:53] VITALS: BP 136/70; PULSE 72; TEMP 98.3
[2020-04-20] MEDS: ATORVASTATIN 40 MG TAB PO SCH (08:41)
[2020-04-20] MEDS: DULoxetine HCL 60 MG CAPSULE.DR PO SCH (08:41)
[2020-04-20] MEDS: PANTOPRAZOLE 40 MG TABLET PO SCH (08:41)
[2020-04-20] MEDS: ASPIRIN 81 MG PO SCH (08:41)
[2020-04-20] MEDS: NEBIVOLOL 5 MG TAB PO SCH (08:41)
[2020-04-20] MEDS: DULoxetine HCL 30 MG CAPSULE.DR PO SCH (08:41)
[2020-04-20] MEDS ORDERED: amLODIPine 5 MG TAB PO SCH (09:00)
--- NOTE | 2020-04-20 10:23 | P.DS ---
Providers Date of admission: 04/18/20 22:37 Expected date of discharge: 04/20/20 Attending physician: Lamonte Massey Consults: 04/19/20 09:18 Consult Physician Routine Consulting Provider: Chelsi Jonas Consult Reason/Comments: CP Do you want consulting provider notified?: Yes 04/19/20 09:24 Consult Physician Routine Consulting Provider: Diego Molina Consult Reason/Comments: TIA Do you want consulting provider notified?: Yes Primary care physician: Pratik [facility] Course: 60-year-old female one of Dr. Zaragoza patient with past medical history of hypertension, hyperlipidemia, hypothyroidism, thoracic outlet syndrome, who has been doing well seen pain management and neurology to [facility] 4 severe headache has been on high-dose of Lyrica. Patient was sitting in her house yesterday when she had episode of migraine become severely worse she felt her vision was wavy she could not hear has been talked could not speak developed to have significant right arm numbness and weakness and all of a sudden developed to have significant midsternal chest pain and discomfort radiating toward the right side and the left upper side associated with mild nausea and palpitation her blood pressure was 203/125 patient's family ended up calling EMS brought her to the emergency department at [facility] her first CK was negative CT of the brain didn't show any abnormality patient was hospitalized be seeing cardiology and neurology workup for TIA urgent hypertension and chest pain will be done. According to patient has been seen Dr. MARJORIE nichols at the scheduled for stress test in April. 04/20 patient was seen this morning resting comfortably in bed, reviewed echo and carotid testing. Recommended discharge on Plavix and follow up with Dr. MARJORIE Bruner as outpatient, Patient will likely need a event monitor to look for any irregular heart rhythm. Assessment: 1 atypical chest pain: 2 TIA: 3 severe hypertension: 4 hypothyroidism: 5 chronic headache 6 severe GERD: 7 anxiety attacks: Discharge plan: Home with self-care Impression and plan of care have been directed as dictated by the signing physician. Domi Serrano nurse practitioner acting as scribe for signing physician. Patient Condition at Discharge: Stable Plan - Discharge Summary Discharge Rx Participant: No New Discharge Prescriptions: New Aspirin 81 mg PO DAILY chew Atorvastatin [Lipitor] 40 mg PO DAILY #30 tab amLODIPine [Norvasc] 5 mg PO DAILY #30 tab Clopidogrel Bisulfate [Plavix] 75 mg PO DAILY #30 tab Pantoprazole [Protonix] 20 mg PO DAILY #30 tablet.dr Continue estradioL [Estrace] 1 mg PO Q48H DULoxetine HCL [Cymbalta] 60 mg PO DAILY tiZANidine [Zanaflex] 2 mg PO HS ALPRAZolam [Xanax] 0.5 mg PO HS Nebivolol [Bystolic] 5 mg PO BID Levothyroxine Sodium [Synthroid] 25 mcg PO DAILY DULoxetine HCL [Cymbalta] 30 mg PO DAILY Pregabalin [Lyrica] 225 mg PO HS ALPRAZolam [Xanax] 0.25 mg PO DAILY PRN PRN Reason: Anxiety Discontinued Omeprazole [PriLOSEC] 20 mg PO DAILY Ketorolac Tromethamine 60mg/2ml Injection 60 mg IM DAILY PRN PRN Reason: Migraine Headache Discharge Medication List DULoxetine HCL [Cymbalta] 60 mg PO DAILY 08/17/14 [History] estradioL [Estrace] 1 mg PO Q48H 08/17/14 [History] ALPRAZolam [Xanax] 0.5 mg PO HS 05/18/19 [History] DULoxetine HCL [Cymbalta] 30 mg PO DAILY 05/18/19 [History] Levothyroxine Sodium [Synthroid] 25 mcg PO DAILY 05/18/19 [History] Nebivolol [Bystolic] 5 mg PO BID 05/18/19 [History] Pregabalin [Lyrica] 225 mg PO HS 05/18/19 [History] tiZANidine [Zanaflex] 2 mg PO HS 05/18/19 [History] ALPRAZolam [Xanax] 0.25 mg PO DAILY PRN 04/18/20 [History] Aspirin 81 mg PO DAILY chew 04/20/20 [Rx] Atorvastatin [Lipitor] 40 mg PO DAILY #30 tab 04/20/20 [Rx] Clopidogrel Bisulfate [Plavix] 75 mg PO DAILY #30 tab 04/20/20 [Rx] Pantoprazole [Protonix] 20 mg PO DAILY #30 tablet. 04/20/20 [Rx] amLODIPine [Norvasc] 5 mg PO DAILY #30 tab 04/20/20 [Rx] Follow up Appointment(s)/Referral(s): Brandi Bruner MD [STAFF PHYSICIAN] - 04/26/20 2:45 pm Pratik Martines DO [Primary Care Provider] - 1-2 days (will call to schedule ) Patient Instructions/Handouts: Transient Ischemic Attack (DC), Syncope (DC) Discharge Disposition: HOME SELF-CARE
== END 2020-04-20 09:12 | disposition home or self-care (01) ==
LOC: EC 21:00 → 3NCARDOBS 22:37
PROVIDERS: ADMIT Internal Medicine; ATTEND Internal Medicine
DX: R07.89 Other chest pain (principal); G45.9 Transient cerebral ischemic attack, unspecified; I10 Essential (primary) hypertension; E03.9 Hypothyroidism, unspecified; G43.909 Migraine, unspecified, not intractable, without status migrainosus; K21.9 Gastro-esophageal reflux disease without esophagitis; F41.1 Generalized anxiety disorder; E78.5 Hyperlipidemia, unspecified; F32.9 Major depressive disorder, single episode, unspecified; G54.0 Brachial plexus disorders; R20.0 Anesthesia of skin; R11.0 Nausea; R00.2 Palpitations; M16.11 Unilateral primary osteoarthritis, right hip; I08.0 Rheumatic disorders of both mitral and aortic valves; E86.0 Dehydration; E66.9 Obesity, unspecified; Z68.33 Body mass index [BMI] 33.0-33.9, adult; Z79.899 Other long term (current) drug therapy; Z79.890 Hormone replacement therapy; Z88.5 Allergy status to narcotic agent; Z88.2 Allergy status to sulfonamides; Z90.49 Acquired absence of other specified parts of digestive tract; Z90.710 Acquired absence of both cervix and uterus; Z96.641 Presence of right artificial hip joint; Z96.651 Presence of right artificial knee joint; Z82.49 Family history of ischemic heart disease and other diseases of the circulatory system; Z82.3 Family history of stroke; Z80.8 Family history of malignant neoplasm of other organs or systems; Z82.0 Family history of epilepsy and other diseases of the nervous system
CPT/HCPCS: 96361 ×2; 96372; 96360; 99285; 36415; 93005; 93306; 80053 ×3; 83735; 84484 ×2; 85025 ×3; 85610; 85730; 81003; 71046; 93880; 70450; G0378 ×3; G0480; J1885; 80320

== ENCOUNTER 2020-08-24 16:31 | Inpatient (IN) | payer MEDICARE ==
[2020-08-24] MEDS ORDERED: SODIUM CHLORIDE 0.9% 500 ML 500 ML IV STA (16:35)
--- NOTE | 2020-08-24 16:51 | ED ---
General Adult HPI - General Stated complaint: poss stroke Time Seen by Provider: 08/24/20 16:31 Source: patient, RN notes reviewed, old records reviewed - History of Present Illness Initial comments: This is a 60-year-old female who presents emergency Department complaining of right-sided weakness. Patient states she had a stroke back in April. Patient states she had right arm and right leg weakness but currently her right arm seems to be back to normal. Patient states her leg still feels somewhat weak. Patient denies any recent fever chills or cough. Patient denies any difficulty breathing or shortness of breath. Patient does however complain of some chest heaviness and that started on the way in. Patient denies any abdominal pain patient's nausea vomiting diarrhea. Patient denies any dysuria hematuria urinary frequency. - Related Data Home Medications Medication Instructions Recorded Confirmed DULoxetine HCL [Cymbalta] 60 mg PO DAILY 08/17/14 08/24/20 ALPRAZolam [Xanax] 0.5 mg PO HS 05/18/19 08/24/20 DULoxetine HCL [Cymbalta] 30 mg PO DAILY 05/18/19 08/24/20 Levothyroxine Sodium [Synthroid] 25 mcg PO DAILY 05/18/19 08/24/20 Pregabalin [Lyrica] 225 mg PO HS 05/18/19 08/24/20 tiZANidine [Zanaflex] 2 mg PO HS 05/18/19 08/24/20 ALPRAZolam [Xanax] 0.5 mg PO DAILY PRN 04/18/20 08/24/20 Galcanezumab-Gnlm [Emgality] 120 mg SQ QMONTHLY 08/24/20 08/24/20 Metoprolol Tartrate 25 mg PO BID 08/24/20 08/24/20 Omeprazole 20 mg PO BID 08/24/20 08/24/20 cloNIDine HCL [Catapres] 0.1 mg PO BID PRN 08/24/20 08/24/20 Previous Rx's Medication Instructions Recorded Aspirin 81 mg PO DAILY chew 04/20/20 Clopidogrel Bisulfate [Plavix] 75 mg PO DAILY #30 tab 04/20/20 amLODIPine [Norvasc] 5 mg PO DAILY #30 tab 04/20/20 Allergies Allergy/AdvReac Type Severity Reaction Status Date / Time codeine Allergy Nausea & Verified 08/24/20 17:19 Vomiting Sulfa (Sulfonamide Allergy Rash/Hives Verified 08/24/20 17:19 Antibiotics) Review of Systems ROS Statement: Those systems with pertinent positive or pertinent negative responses have been documented in the HPI. ROS Other: All systems not noted in ROS Statement are negative. Past Medical History Past Medical History: Hyperlipidemia, Hypertension Additional Past Medical History / Comment(s): migraines episodic biliary colic as a result from choledocholithiasis with gravel from the last ERCP 7 years ago History of Any Multi-Drug Resistant Organisms: None Reported Past Surgical History: Section, Cholecystectomy, Hysterectomy Additional Past Surgical History / Comment(s): thorasic outlet surgery, right shoulder surgery, ERCP 7 years ago. pt. also states that she has a right hip and knee replacements from 2014 for the knee and 2017 for the hip Past Anesthesia/Blood Transfusion Reactions: No Reported Reaction Past Psychological History: Depression Smoking Status: Never smoker Past Alcohol Use History: Rare Past Drug Use History: None Reported General Exam - General Exam Comments Initial Comments: GENERAL: Patient is well-developed and well-nourished. Patient is nontoxic and well- hydrated and is in mild distress. ENT: Neck is soft and supple. No significant lymphadenopathy is noted. Oropharynx is clear. Moist mucous membranes. Neck has full range of motion without eliciting any pain. EYES: The sclera were anicteric and conjunctiva were pink and moist. Extraocular movements were intact and pupils were equal round and reactive to light. Eyelids were unremarkable. PULMONARY: Unlabored respirations. Good breath sounds bilaterally. No audible rales rhonchi or wheezing was noted. CARDIOVASCULAR: There is a regular rate and rhythm without any murmurs gallops or rubs. ABDOMEN: Soft and nontender with normal bowel sounds. SKIN: Skin is clear with no lesions or rashes and otherwise unremarkable. NEUROLOGIC: Patient is alert and oriented x3. Cranial nerves II through XII are grossly intact. Patient's bilateral client liaison is normal. Patient has some decreased dorsi and plantar flexion 4 out of 5 on the right. Patient's finger to nose testing is normal bilaterally MUSCULOSKELETAL: Normal extremities with adequate strength and full range of motion. LYMPHATICS: No significant lymphadenopathy is noted PSYCHIATRIC: Normal psychiatric evaluation. Course Vital Signs 08/24/20 08/24/20 08/24/20 16:35 16:36 16:45 Temperature 98.0 F Pulse Rate 18 L 70 68 Respiratory 71 H 18 18 Rate Blood Pressure 179/100 179/100 160/95 O2 Sat by Pulse 99 99 Oximetry 08/24/20 08/24/20 08/24/20 17:00 17:15 17:30 Temperature Pulse Rate 64 68 Respiratory 16 16 Rate Blood Pressure 163/91 154/83 160/88 O2 Sat by Pulse 99 99 Oximetry 08/24/20 08/24/20 08/24/20 17:45 18:00 18:15 Temperature Pulse Rate 67 70 Respiratory 16 16 Rate Blood Pressure 139/98 150/92 152/85 O2 Sat by Pulse 98 99 100 Oximetry Medical Decision Making - Medical Decision Making EKG shows normal sinus rhythm at 60 bpm WV interval 166 dresses 84 QT interval 44 QTC is 429 per patient's EKG shows no ST segment elevation or depression. CT of the brain shows no acute abnormality. CT angiogram of the head and neck show no acute abnormality. - Lab Data Result diagrams: 08/24/20 16:57 08/24/20 16:57 Lab Results 08/24/20 08/24/20 08/24/20 Range/Units 16:52 16:57 16:57 WBC 5.2 (3.8-10.6) k/uL RBC 4.25 (3.80-5.40) m/uL Hgb 11.9 (11.4-16.0) gm/dL Hct 36.9 (34.0-46.0) % MCV 86.7 (80.0-100.0) fL MCH 28.1 (25.0-35.0) pg MCHC 32.4 (31.0-37.0) g/dL RDW 15.1 (11.5-15.5) % Plt Count 243 (150-450) k/uL MPV 6.9 Neutrophils % 60 % Lymphocytes % 27 % Monocytes % 8 % Eosinophils % 2 % Basophils % 1 % Neutrophils # 3.1 (1.3-7.7) k/uL Lymphocytes # 1.4 (1.0-4.8) k/uL Monocytes # 0.4 (0-1.0) k/uL Eosinophils # 0.1 (0-0.7) k/uL Basophils # 0.0 (0-0.2) k/uL PT 10.5 (9.0-12.0) sec INR 1.0 (<1.2) APTT 27.0 (22.0-30.0) sec Sodium (137-145) mmol/L Potassium (3.5-5.1) mmol/L Chloride (98-107) mmol/L Carbon Dioxide (22-30) mmol/L Anion Gap mmol/L BUN (7-17) mg/dL Creatinine (0.52-1.04) mg/dL Est GFR (CKD-EPI)AfAm (>60 ml/min/1.73 sqM) Est GFR (CKD-EPI)NonAf (>60 ml/min/1.73 sqM) Glucose (74-99) mg/dL POC Glucose (mg/dL) 90 (75-99) mg/dL POC Glu Mitering Machine Operator ID [email or web address], Bartolome Calcium (8.4-10.2) mg/dL Total Bilirubin (0.2-1.3) mg/dL AST (14-36) U/L ALT (4-34) U/L Alkaline Phosphatase (38-126) U/L Troponin I (0.000-0.034) ng/mL Total Protein (6.3-8.2) g/dL Albumin (3.5-5.0) g/dL 08/24/20 08/24/20 Range/Units 16:57 16:57 WBC (3.8-10.6) k/uL RBC (3.80-5.40) m/uL Hgb (11.4-16.0) gm/dL Hct (34.0-46.0) % MCV (80.0-100.0) fL MCH (25.0-35.0) pg MCHC (31.0-37.0) g/dL RDW (11.5-15.5) % Plt Count (150-450) k/uL MPV Neutrophils % % Lymphocytes % % Monocytes % % Eosinophils % % Basophils % % Neutrophils # (1.3-7.7) k/uL Lymphocytes # (1.0-4.8) k/uL Monocytes # (0-1.0) k/uL Eosinophils # (0-0.7) k/uL Basophils # (0-0.2) k/uL PT (9.0-12.0) sec INR (<1.2) APTT (22.0-30.0) sec Sodium 136 L (137-145) mmol/L Potassium 3.8 (3.5-5.1) mmol/L Chloride 107 (98-107) mmol/L Carbon Dioxide 26 (22-30) mmol/L Anion Gap 3 mmol/L BUN 8 (7-17) mg/dL Creatinine 0.65 (0.52-1.04) mg/dL Est GFR (CKD-EPI)AfAm >90 (>60 ml/min/1.73 sqM) Est GFR (CKD-EPI)NonAf >90 (>60 ml/min/1.73 sqM) Glucose 88 (74-99) mg/dL POC Glucose (mg/dL) (75-99) mg/dL POC Glu Mitering Machine Operator ID Calcium 8.4 (8.4-10.2) mg/dL Total Bilirubin 0.3 (0.2-1.3) mg/dL AST 31 (14-36) U/L ALT 21 (4-34) U/L Alkaline Phosphatase 92 (38-126) U/L Troponin I <0.012 (0.000-0.034) ng/mL Total Protein 6.1 L (6.3-8.2) g/dL Albumin 3.3 L (3.5-5.0) g/dL Disposition Clinical Impression: Cerebrovascular accident (CVA) Disposition: ADMITTED IP TO THIS HOSP Referrals: Pratik aMrtines DO [STAFF PHYSICIAN] - 1-2 days Time of Disposition: 18:31
[2020-08-24 16:57] LABS: Glucose,Whole Blood 90 mg/dL (75-99)
--- NOTE | 2020-08-24 16:59 | CT ---
EXAMINATION TYPE: CT brain wo con for TPA DATE OF EXAM: 08/24/2020 COMPARISON: 04/18/2020 INDICATION: Right sided weakness DLP: 1038.8 mGycm, Automated exposure control for dose reduction was used. CONTRAST: None CT of the brain is performed utilizing 3 mm thick sections through the posterior fossa and 3 mm thick sections through the remaining calvarium. Study is performed within 24 hours of arrival to the hosp [facility]. No abnormal hyperdensity is present to suggest an acute intracranial hemorrhage. No mass lesion is evident. No acute infarcts are evident. Ventricles and sulci are appropriate for the patient age. Paranasal sinuses and mastoid air cells within the [id number] are clear. IMPRESSIONS: 1. No acute intracranial process
--- NOTE | 2020-08-24 17:07 | CT ---
EXAMINATION TYPE: CT angio head neck DATE OF EXAM: 08/24/2020 HISTORY: Right sided weakness COMPARISON: None CT DLP: 429.7 mGycm. Automated Exposure Control for Dose Reduction was Utilized. TECHNIQUE: CTA scan of the neck is performed with IV Contrast, patient injected with 65 mL of Isovue 370, axial images are obtained, coronal and sagittal reformatted images are reviewed. Three-D recons tructed images are created on an independent workstation and reviewed. Source images are reviewed. FINDINGS: Carotid/Vascular Structures: There is three-vessel arch. The common carotid arteries bifurcate into i nternal and external carotid arteries. No significant plaquing is identified. Vertebral arteries are codominant. Cervical of Luis: Vertebral basilar system appears normal. Posterior cerebral vasculature is unrema rkable. Internal carotid arteries bifurcate normally into A1 and M1 segments. A2 segments are normal. The anterior communicating artery is patent. Left Posterior communicating artery is patent. Right po sterior communicating artery is absent Other: The thyroid is slightly heterogenous. Lung apices appear clear. IMPRESSION: 1. No flow-limiting stenosis bilateral carotid bifurcations. 2. Normal [place] of [place]
[2020-08-24 17:08] LABS: Basophils % (A) 1 %; Eosinophils # (A) 0.1 k/uL (0-0.7); Eosinophils % (A) 2 %; HCT 36.9 % (34.0-46.0); HGB 11.9 gm/dL (11.4-16.0); Lymphocytes # (A) 1.4 k/uL (1.0-4.8); Lymphocytes % (A) 27 %; MCH 28.1 pg (25.0-35.0); MCHC 32.4 g/dL (31.0-37.0); MCV 86.7 fL (80.0-100.0); Mean Platelet Volume 6.9; Monocytes # (A) 0.4 k/uL (0-1.0); Monocytes % (A) 8 %; Neutrophils # (A) 3.1 k/uL (1.3-7.7); Neutrophils % (A) 60 %; Platelet Count 243 k/uL (150-450); RBC 4.25 m/uL (3.80-5.40); RDW 15.1 % (11.5-15.5); WBC 5.2 k/uL (3.8-10.6)
[2020-08-24 17:17] LABS: Prothrombin Time 10.5 sec (9.0-12.0)
[2020-08-24 17:22] LABS: ALT 21 U/L (4-34); AST 31 U/L (14-36); African American GFR (CKD) >90 (>60 ml/min/1.73 sqM); Albumin 3.3 g/dL (3.5-5.0); Alkaline Phosphatase 92 U/L (38-126); Anion Gap 3 mmol/L; Blood Urea Nitrogen 8 mg/dL (7-17); Calcium 8.4 mg/dL (8.4-10.2); Carbon Dioxide 26 mmol/L (22-30); Chloride 107 mmol/L (98-107); Glucose 88 mg/dL (74-99); Non-African American GFR(CKD) >90 (>60 ml/min/1.73 sqM); Potassium 3.8 mmol/L (3.5-5.1); Sodium 136 mmol/L (137-145); Total Bilirubin 0.3 mg/dL (0.2-1.3); Total Protein 6.1 g/dL (6.3-8.2)
--- NOTE | 2020-08-24 18:03 | XR ---
EXAMINATION TYPE: XR chest 2V DATE OF EXAM: 08/24/2020 COMPARISON: 04/18/2020 INDICATION: Altered mental status TECHNIQUE: Frontal and lateral views of the chest are obtained. FINDINGS: The heart size is mildly prominent. The pulmonary vasculature is normal. No suspicious infiltrates are evident.. IMPRESSION: 1. Mild cardiomegaly. 2. No acute pulmonary process
[2020-08-24] MEDS ORDERED: ASPIRIN 325 MG TAB PO STA (18:32)
[2020-08-24] MEDS ORDERED: cloNIDine HCL 0.1 MG TAB PO PRN (20:54)
[2020-08-24] MEDS ORDERED: ALPRAZolam 0.5 MG TAB PO PRN (20:54)
[2020-08-24] MEDS: ALPRAZolam 0.5 MG TAB PO SCH (21:43)
[2020-08-24] MEDS: METOPROLOL TARTRATE 25 MG TAB PO SCH (21:43)
[2020-08-24] MEDS: PREGABALIN 75 MG CAP PO SCH (21:44)
[2020-08-24] MEDS: tiZANidine 4 MG TAB PO SCH (21:44)
[2020-08-24 23:05] LABS: Cholesterol 176 mg/dL (<200); HDL Cholesterol 61 mg/dL (40-60); LDL Cholesterol,Calculated 83 mg/dL (0-99); Triglycerides 161 mg/dL (<150)
[2020-08-25] MEDS: LEVOTHYROXINE 25 MCG TAB PO SCH (06:34)
[2020-08-25] MEDS: PANTOPRAZOLE 40 MG TABLET PO SCH (06:34)
[2020-08-25] MEDS: amLODIPine 5 MG TAB PO SCH (09:28)
[2020-08-25] MEDS: ASPIRIN 325 MG TAB PO SCH (09:28)
[2020-08-25] MEDS: DULoxetine HCL 30 MG CAPSULE.DR PO SCH (09:28)
[2020-08-25] MEDS: DULoxetine HCL 60 MG CAPSULE.DR PO SCH (09:28)
[2020-08-25] MEDS: CLOPIDOGREL 75 MG TAB PO SCH (09:28)
[2020-08-25] MEDS: METOPROLOL TARTRATE 25 MG TAB PO SCH ×2 (09:28→20:11)
--- NOTE | 2020-08-25 17:16 | P.CNNES ---
History of Present Illness Consult date: 08/25/20 Requesting physician: Amado Garzon Reason for Consult: TIA History of Present Illness: Patient is a 60-year-old female came to the hospital yesterday at 4:31 PM by ambulance for right-sided weakness. Patient states that yesterday at around 3 PM she developed "terrible pressure" involving back of the head, which turned into pain. She then started noticing dizziness, lightheadedness and then right arm became weak, could not lift her right arm, right leg also felt weak. She felt right facial "pain" which she describes as a pulling sensation down. She has difficulty holding her weight on the right leg. She checked her blood pressure was high. Patient came to ER. Vital signs on arrival blood pressure 179/100, pulse rate 71, respiration [address] head was negative. CTA of head and neck showed no flow- limiting stenosis bilateral carotid bifurcations. Normal [place] of [place]. Chest x-ray showed mild cardiomegaly with no acute cardiopulmonary process. EKG with normal sinus rhythm with moderate voltage criteria for LVH. Blood tests shows normal CBC, PT/PTT, sodium 136 potassium 3.8, normal renal functions, normal hepatic panel, total cholesterol 176, LDL 83, HDL 61, triglycerides 161. Troponin negative. Patient's hemoglobin A1c 5.7 on 10/07/2019. TFTs normal. Her previous CHARLEY, rheumatoid factor, dsDNA is negative. Patient was not a candidate for TPA because her symptoms resolved while she was in the ER at around 3:45 to 4 PM. Patient states that last night she woke up at 3 AM and noticed reappearance of symptoms in the right side, arm and leg. The symptoms have been persistent since then. At present patient feels right arm and right leg feels heavy, not quite as coordinated. She can walk, can lift her leg. Patient currently is on aspirin 81 mg, Plavix 75 mg, not on statins. Patient states that she was discharged on Lipitor previously, but only one month was supplied. Therefore not on it. She is also on Emgality 120 mg monthly injection for migraines. Patient has history of possible TIA on 04/18/2020 manifesting with transient right hemiparesis and expressive aphasia on 04/18/2020. Patient at that time had a normal 2-D echo and a carotid Doppler. She was started on aspirin 81 mg and Lipitor 40 mg daily. Patient at that time was taking hormonal replacement therapy which was recommended to be discontinued. Patient had an MRI of brain performed 04/07/2020 which was negative for any CVA. Patient denies tobacco use ever. She is hypertension for years, denies diabetes. Review of Systems Patient complains of mild right-sided heaviness. Denies any double vision, loss of vision, hoarseness, sore throat, dysphagia. Denies any chest pain, shortness of breath, wheezing or cough. Denies back pain. Patient does have some headache. Denies diabetes. Past Medical History Past Medical History: CVA/TIA, Hyperlipidemia, Hypertension Additional Past Medical History / Comment(s): migraines episodic biliary colic as a result from choledocholithiasis with gravel from the last ERCP 7 years ago History of Any Multi-Drug Resistant Organisms: None Reported Past Surgical History: Section, Cholecystectomy, Hysterectomy Additional Past Surgical History / Comment(s): thorasic outlet surgery, right shoulder surgery, ERCP 7 years ago. pt. also states that she has a right hip and knee replacements from 2014 for the knee and 2017 for the hip Past Anesthesia/Blood Transfusion Reactions: No Reported Reaction Past Psychological History: Depression Smoking Status: Never smoker Past Alcohol Use History: Rare Past Drug Use History: None Reported Medications and Allergies Home Medications Medication Instructions Recorded Confirmed Type DULoxetine HCL [Cymbalta] 60 mg PO DAILY 08/17/14 08/24/20 History ALPRAZolam [Xanax] 0.5 mg PO HS 05/18/19 08/24/20 History DULoxetine HCL [Cymbalta] 30 mg PO DAILY 05/18/19 08/24/20 History Levothyroxine Sodium [Synthroid] 25 mcg PO DAILY 05/18/19 08/24/20 History Pregabalin [Lyrica] 225 mg PO HS 05/18/19 08/24/20 History tiZANidine [Zanaflex] 2 mg PO HS 05/18/19 08/24/20 History ALPRAZolam [Xanax] 0.5 mg PO DAILY PRN 04/18/20 08/24/20 History Aspirin 81 mg PO DAILY chew 04/20/20 08/24/20 Rx Clopidogrel Bisulfate [Plavix] 75 mg PO DAILY #30 tab 04/20/20 08/24/20 Rx amLODIPine [Norvasc] 5 mg PO DAILY #30 tab 04/20/20 08/24/20 Rx Galcanezumab-Gnlm [Emgality] 120 mg SQ QMONTHLY 08/24/20 08/24/20 History Metoprolol Tartrate 25 mg PO BID 08/24/20 08/24/20 History Omeprazole 20 mg PO BID 08/24/20 08/24/20 History cloNIDine HCL [Catapres] 0.1 mg PO BID PRN 08/24/20 08/24/20 History Allergies Allergy/AdvReac Type Severity Reaction Status Date / Time codeine Allergy Nausea & Verified 08/24/20 17:19 Vomiting Sulfa (Sulfonamide Allergy Rash/Hives Verified 08/24/20 17:19 Antibiotics) Physical Examination - Vital Signs Vital Signs: Vital Signs Temp Pulse Pulse Resp BP BP Pulse Ox 08/25/20 04:00 97.7 F 68 17 114/59 95 08/25/20 01:57 17 08/25/20 00:00 98.5 F 73 17 115/59 94 L 08/24/20 20:00 98.4 F 85 18 148/90 95 08/24/20 19:19 78 18 132/85 98 08/24/20 19:17 98.4 F 85 18 148/90 95 08/24/20 18:43 71 16 132/82 100 08/24/20 18:33 70 16 152/85 100 08/24/20 18:15 70 16 152/85 100 08/24/20 18:00 67 16 150/92 99 08/24/20 17:45 139/98 98 08/24/20 17:30 160/88 08/24/20 17:15 68 16 154/83 99 08/24/20 17:00 64 16 163/91 99 08/24/20 16:45 68 18 160/95 08/24/20 16:36 70 18 179/100 99 08/24/20 16:35 98.0 F 18 L 71 H 179/100 99 Intake and Output 08/24/20 08/25/20 08/25/20 22:59 06:59 14:59 Other: # Voids 1 Weight 68.039 kg 69.4 kg On examination patient is a middle aged female, appears slightly older than her stated age. She is alert and awake fully oriented to time place and person. Speech and language functions are normal. Attention and concentration fund of knowledge is adequate. On cranial nerve examination pupils are round and reactive to light, visual nelson are full on confrontation, extraocular muscles are intact with no nystagmus. Face is symmetric, tongue protrudes to the midline. Palatal elevation sensation normal, hearing and shoulder shrug normal. Facial sensation is normal. On muscle strength testing patient has a mild right drift but no pronation. The strength is normal in the left arm and left leg. In the right side, her deltoid biceps and triceps are normal, house wrecker is 5-, hip flexion 5-. Ankles and toes are normal. Sensations are slightly decreased on the right as compared to left. No ataxia for [id number] or [id number] testing. Tone and bulk of muscles normal. Patient walks fairly steadily. On general exam agent is no carotid bruit or murmur, peripheral pulses present. Abdomen soft nontender, chest is clear. No peripheral edema. Results - Laboratory Findings CBC and BMP: 08/24/20 16:57 08/24/20 16:57 Abnormal Lab Findings: Abnormal Labs 08/24/20 08/24/20 16:57 16:57 Sodium 136 L Total Protein 6.1 L Albumin 3.3 L Triglycerides 161 H HDL Cholesterol 61 H Assessment and Plan Assessment: * Stroke/TIA, with right-sided numbness and weakness. Rule out thalamic lacunar stroke. * Patient recently had recurrent TIAs (x2 in the past) in the similar vascular distribution with right-sided weakness, that resolved with no deficits. * Hypertension * Obesity Plan: * Patient will be continued on dual antiplatelet medication including aspirin, Plavix. * Patient will be started on Lipitor 40 mg daily, due to recurrent stroke TIA. * Stat MRI of the brain evaluate for acute stroke. * Telemetry monitoring so far showing sinus rhythm with no arrhythmia. * Permissible hypertension. * We will follow.
--- NOTE | 2020-08-25 17:32 | MR ---
EXAMINATION TYPE: MR brain wo con DATE OF EXAM: 08/25/2020 COMPARISON: None HISTORY: Right-sided weakness Multiplanar multiecho imaging of the brain was performed without contrast. There is mild cerebral cortical atrophy. There is no mass effect nor midline shift. There is no sign of intracranial hemorrhage. Diffusion images show no evidence of an acute infarct. The schulte-white mat ter structures have fairly normal signal pattern. There is no evidence of cerebral edema. There are a few scattered white matter high signal foci at the schulte-white matter junction of both cerebral hemis pheres on the T2 and FLAIR images. These measure up to 4 mm and total number is approximately 5. There is no evidence of orbital mass. Sella turcica is normal. Corpus callosum is intact. Brainstem i s intact. IMPRESSION: There are a few scattered small white matter high signal foci. Clinical significance is not clear. No evidence of cortical infarct.
[2020-08-25] MEDS: tiZANidine 4 MG TAB PO SCH (20:11)
[2020-08-25] MEDS: PREGABALIN 75 MG CAP PO SCH (20:12)
[2020-08-25] MEDS: ALPRAZolam 0.5 MG TAB PO SCH (20:12)
[2020-08-25] MEDS: ACETAMINOPHEN TAB 325 MG TAB PO PRN (20:12)
[2020-08-25] MEDS ORDERED: ATORVASTATIN 40 MG TAB PO SCH (21:00)
--- NOTE | 2020-08-25 22:47 | P.HPIM ---
History of Present Illness H&P Date: 08/25/20 Chief Complaint: Rt sided weakness. Patient is a 60-year-old female with a known history of hypertension, hyperlipidemia, depression and history of CVA/TIA and migraine headaches presents to ER with complaints of acute right-sided weakness. Patient states that around 3 PM yesterday patient had headache started at the back of the head with pressure-like sensation. At the same time patient felt right arm and leg weakness along with right facial droop and felt like pulling down and heavy drooping. Patient was cleaning cat litter at the time and her daughter was at the side. Patient was brought to the hospital for further evaluation. Symptoms resolved around 5 PM while she was in the ER. Patient states that she usually gets migraine headache and associated with mu ffled voice and sometimes right arm weakness and could not talk. Patient states that she had stroke back in April. Currently no residual weakness. Denies any recent illnesses. No fever no chills. No cough or sputum production. No chest pain or shortness of the. Patient states that she felt some heaviness in the chest and currently improved. No radiation of the pain. No nausea vomiting or abdominal pain or diarrhea. No dysuria or hematuria. CT head showed no acute intracranial process. CT angiogram showed no flow-limiting stenosis bilateral carotid bifurcations. Normal [place]. Chest x-ray showed mild cardiomegaly. No acute pulmonary process. EKG showed normal sinus rhythm. Patient blood pressure is 142/81 currently and on admission blood pressure was 179/100. Laboratory data reviewed. Electrolytes and hemoglobin and platelets within normal limits. Review of Systems Constitutional: Patient denies any fever or chills . No generalized weakness or weight loss. Abdomen: Patient denied nausea vomiting and diarrhea and abdominal pain. Cardiovascular: Patient denies any chest pain or short of breath no palpitations. Respiratory: patient denied any cough or sputum production. No shortness of breath Neurologic: Patient denied any numbness or tingling headache. Musculoskeletal: Patient denies any complaints of joint swelling or deformity. Skin: Negative Psychiatric: Negative Endocrine: No heat or cold intolerance. No recent weight gain. Genitourinary: No dysuria or hematuria. All other 14 point ROS negative except the above Past Medical History Past Medical History: CVA/TIA, Hyperlipidemia, Hypertension Additional Past Medical History / Comment(s): migraines episodic biliary colic as a result from choledocholithiasis with gravel from the last ERCP 7 years ago History of Any Multi-Drug Resistant Organisms: None Reported Past Surgical History: Section, Cholecystectomy, Hysterectomy Additional Past Surgical History / Comment(s): thorasic outlet surgery, right shoulder surgery, ERCP 7 years ago. pt. also states that she has a right hip and knee replacements from 2015 for the knee and 2017 for the hip Past Anesthesia/Blood Transfusion Reactions: No Reported Reaction Past Psychological History: Depression Smoking Status: Never smoker Past Alcohol Use History: Rare Past Drug Use History: None Reported Medications and Allergies Home Medications Medication Instructions Recorded Confirmed Type DULoxetine HCL [Cymbalta] 60 mg PO DAILY 08/17/14 08/24/20 History ALPRAZolam [Xanax] 0.5 mg PO HS 05/18/19 08/24/20 History DULoxetine HCL [Cymbalta] 30 mg PO DAILY 05/18/19 08/24/20 History Levothyroxine Sodium [Synthroid] 25 mcg PO DAILY 05/18/19 08/24/20 History Pregabalin [Lyrica] 225 mg PO HS 05/18/19 08/24/20 History tiZANidine [Zanaflex] 2 mg PO HS 05/18/19 08/24/20 History ALPRAZolam [Xanax] 0.5 mg PO DAILY PRN 04/18/20 08/24/20 History Aspirin 81 mg PO DAILY chew 04/20/20 08/24/20 Rx Clopidogrel Bisulfate [Plavix] 75 mg PO DAILY #30 tab 04/20/20 08/24/20 Rx amLODIPine [Norvasc] 5 mg PO DAILY #30 tab 04/20/20 08/24/20 Rx Galcanezumab-Gnlm [Emgality] 120 mg SQ QMONTHLY 08/24/20 08/24/20 History Metoprolol Tartrate 25 mg PO BID 08/24/20 08/24/20 History Omeprazole 20 mg PO BID 08/24/20 08/24/20 History cloNIDine HCL [Catapres] 0.1 mg PO BID PRN 08/24/20 08/24/20 History Allergies Allergy/AdvReac Type Severity Reaction Status Date / Time codeine Allergy Nausea & Verified 08/24/20 17:19 Vomiting Sulfa (Sulfonamide Allergy Rash/Hives Verified 08/24/20 17:19 Antibiotics) Physical Exam Vitals: Vital Signs Temp Pulse Pulse Resp BP BP Pulse Ox 08/25/20 12:00 67 18 161/85 98 08/25/20 08:00 97.8 F 72 18 136/82 95 08/25/20 04:00 97.7 F 68 17 114/59 95 08/25/20 01:57 17 08/25/20 00:00 98.5 F 73 17 115/59 94 L 08/24/20 20:00 98.4 F 85 18 148/90 95 08/24/20 19:19 78 18 132/85 98 08/24/20 19:17 98.4 F 85 18 148/90 95 08/24/20 18:43 71 16 132/82 100 08/24/20 18:33 70 16 152/85 100 08/24/20 18:15 70 16 152/85 100 08/24/20 18:00 67 16 150/92 99 08/24/20 17:45 139/98 98 08/24/20 17:30 160/88 08/24/20 17:15 68 16 154/83 99 08/24/20 17:00 64 16 163/91 99 08/24/20 16:45 68 18 160/95 08/24/20 16:36 70 18 179/100 99 08/24/20 16:35 98.0 F 18 L 71 H 179/100 99 Intake and Output 08/25/20 08/25/20 08/25/20 06:59 14:59 22:59 Intake Total 1320 Balance 1320 Intake: Oral 1320 Other: # Voids 1 1 Weight 69.4 kg PHYSICAL EXAMINATION: Patient is lying in the bed comfortably, no acute distress, awake alert and oriented.. HEENT: Normocephalic. Neck is supple. Pupils reactive. Nostrils clear. Oral cavity is moist. Ears reveal no drainage. Neck reveals no JVD, carotid bruits, or thyromegaly. CHEST EXAMINATION: Trachea is central. Symmetrical expansion. Lung nelson clear to auscultation and percussion. CARDIAC: Normal S1, S2 with no gallops. No murmurs ABDOMEN: Soft. Bowel sounds normal. No organomegaly. No abdominal bruits. Extremities: reveal no edema. No clubbing or cyanosis Neurologically awake, alert, oriented x3 with well-coordinated movements. No focal deficits noted Skin: No rash or skin lesions. Psychiatric: Coperative. Nonsuicidal Musculoskeletal: No joint swelling or deformity. Normal range of motion. Results CBC & Chem 7: 08/24/20 16:57 08/24/20 16:57 Labs: Abnormal Lab Results - Last 24 Hours (Table) 08/24/20 08/24/20 Range/Units 16:57 16:57 Sodium 136 L (137-145) mmol/L Total Protein 6.1 L (6.3-8.2) g/dL Albumin 3.3 L (3.5-5.0) g/dL Triglycerides 161 H (<150) mg/dL HDL Cholesterol 61 H (40-60) mg/dL Thrombosis Risk Factor Assmnt - DVT/VTE Prophylaxis DVT/VTE Prophylaxis: Pharmacologic Prophylaxis ordered - Choose All That Apply Any of the Below Risk Factors Present?: No Other Risk Factors: No Other congenital or acquired thrombophilia - If yes, enter type in comment: Yes Each Risk Factor Represents 5 Points: Stroke (< 1 month) Thrombosis Risk Factor Assessment Total Risk Factor Score: 5 Thrombosis Risk Factor Assessment Level: High Risk Assessment and Plan Assessment: Right-sided weakness and numbness likely due to acute CVA. Rule out thalamic lacunar infarct. Recent history of acute CVA with right-sided weakness resolved at the time. 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 Patient was recently started Ubrelvy which she is supposed to peanut picker the prescription. Hypothyroidism DVT prophylaxis with heparin subcu Patient will be continued telemetry monitoring. Continue with aspirin Plavix and statins. CTA head and neck and CT head negative for any acute CVA. Continue with permissive hypertension and neurology is following. Further recommendations based on the clinical course. Time with Patient: Greater than 30
[2020-08-25] MEDS: HEPARIN SODIUM,PORCINE 5,000 UNIT/ML 1 ML VIAL SQ SCH (23:15)
[2020-08-26] MEDS: PANTOPRAZOLE 40 MG TABLET PO SCH (06:36)
[2020-08-26] MEDS: LEVOTHYROXINE 25 MCG TAB PO SCH (06:36)
[2020-08-26] MEDS: ACETAMINOPHEN TAB 325 MG TAB PO PRN (09:55)
[2020-08-26] MEDS: CLOPIDOGREL 75 MG TAB PO SCH (09:55)
[2020-08-26] MEDS: METOPROLOL TARTRATE 25 MG TAB PO SCH (09:55)
[2020-08-26] MEDS: DULoxetine HCL 60 MG CAPSULE.DR PO SCH (09:56)
[2020-08-26] MEDS: HEPARIN SODIUM,PORCINE 5,000 UNIT/ML 1 ML VIAL SQ SCH (09:56)
[2020-08-26] MEDS: ASPIRIN 325 MG TAB PO SCH (09:56)
[2020-08-26] MEDS: amLODIPine 5 MG TAB PO SCH (09:56)
[2020-08-26] MEDS: DULoxetine HCL 30 MG CAPSULE.DR PO SCH (09:56)
[2020-08-26 10:49] VITALS: RESP 18; TEMP 98.1
[2020-08-26 12:32] VITALS: BP 116/73; PULSE 73
--- NOTE | 2020-08-26 14:04 | EEG ---
ELECTROENCEPHALOGRAM REPORT DATE OF SERVICE: 08/26/2020 PREAMBLE: This is a 60-year-old female with recurrent TIAs. This study is performed to rule out any epileptiform activity. EEG FINDINGS: This is a 21 channel routine EEG recording in a patient utilizing 10/20 international system with referential and bipolar montages. Background consists of well developed, well regulated, moderate voltage activity in 9 hertz alpha. Background is posterior dominant and reactive to eye opening and closing. Some myogenic and eye movement artifacts were seen. Photic driving response was not seen. Different stages of sleep were not seen. No focal or generalized epileptiform activity was seen. EKG channel revealed no arrhythmia. IMPRESSION: This is a normal awake EEG. No focal, lateralized, or epileptiform activity was seen. MMODL / IJN: [id number] /
--- NOTE | 2020-08-26 14:46 | P.PN ---
Subjective Progress Note Date: 08/26/20 Patient was seen for a follow-up. Patient states all her symptoms have resolved. She has no deficits. No headache. Patient states her right arm and right leg do not feel heavy anymore. Telemetry monitoring showing sinus bradycardia in 50s, PVCs and some PACs. No A. fib. Objective - Vital Signs Vital signs: Vital Signs Temp 98.1 F 08/26/20 08:00 Pulse 73 08/26/20 12:00 Resp 18 08/26/20 12:00 BP 116/73 08/26/20 12:00 Pulse Ox 95 08/26/20 12:00 Intake & Output 08/25/20 08/26/20 08/26/20 18:59 06:59 18:59 Intake Total 1979 125 Balance 1979 125 Weight 68.3 kg Intake: Oral 1979 125 Other: # Voids 1 2 - Exam Patient's mental status, speech and language functions are normal. Cranial nerves are normal. Visual nelson are full, face is symmetric and tongue protrudes to the midline. On muscle strength testing there is no pronator drift and the strength is normal in arms and legs distally and proximally. Her sensations are equal with no neglect. No ataxia. She does have some tremulousness for pwgvjg-ti-iple testing bilaterally. Tone and bulk of muscles normal. - Labs CBC & Chem 7: 08/24/20 16:57 08/24/20 16:57 Assessment and Plan Assessment: * TIA, with right-sided numbness and weakness. MRI of brain negative for CVA. Her symptoms have resolved. NIH stroke scale 0. * Patient recently had recurrent TIAs (x2 in the past) in the similar vascular distribution with right-sided weakness, that resolved with no deficits. * Hypertension * Obesity Plan: * Patient will be continued on dual antiplatelet medication including aspirin 162 mg, Plavix 75. Due to recurrent focal symptoms, we'll increase aspirin from 81 mg to 162 mg daily. * Continue Lipitor 40 mg daily, due to recurrent stroke TIA. * MRI of the brain was negative for any acute ischemic stroke. Some nonspecific white matter abnormality. * Telemetry monitoring so far showing sinus rhythm with no arrhythmia. * Optimize control of blood pressure. Target blood pressure <130/80 * EEG was performed, which was normal. No epileptiform activity seen. * Hemoglobin A1c normal 5.7 on 10/07/2019. * Neurologically clear for discharge.
[2020-08-27] MEDS ORDERED: ASPIRIN 81 MG PO SCH (09:00)
[2020-09-19] MEDS ORDERED: Galcanezumab-Gnlm [Emgality Pen] 120 MG/ML Pen.Injctr SQ SCH (09:00)
== END 2020-08-26 16:41 | disposition home or self-care (01) | DRG 69 ==
LOC: EC 16:31 → 3SCARD 18:32 → OBSVTOIN 08-25 09:53
PROVIDERS: ADMIT Hospitalist; ATTEND Hospitalist
DX: G45.9 Transient cerebral ischemic attack, unspecified (principal); G81.91 Hemiplegia, unspecified affecting right dominant side; R47.01 Aphasia; E66.9 Obesity, unspecified; E78.5 Hyperlipidemia, unspecified; F32.9 Major depressive disorder, single episode, unspecified; G43.909 Migraine, unspecified, not intractable, without status migrainosus; I10 Essential (primary) hypertension; I49.3 Ventricular premature depolarization; R29.810 Facial weakness; Z68.32 Body mass index [BMI] 32.0-32.9, adult; Z79.02 Long term (current) use of antithrombotics/antiplatelets; Z79.82 Long term (current) use of aspirin; Z79.890 Hormone replacement therapy; Z79.899 Other long term (current) drug therapy; Z90.710 Acquired absence of both cervix and uterus; Z88.5 Allergy status to narcotic agent; Z88.2 Allergy status to sulfonamides
CPT/HCPCS: 36415; 70450; 70496; 70498; 70551; 71046; 80053; 80061; 84484; 85025; 85610; 85730; 93005; 95816; 96360; 96361; 99285

== ENCOUNTER → 2021-11-22 | Day surgery (SDC) | payer MEDICARE ==
[2021-11-18 15:11] VITALS: BMI 31.3
[~2021-11-22] MED LIST: GLYCOPYRROLATE 0.2 MG/ML 2 ML VIAL ONE; INDOMETHACIN 50MG SUPPOSITORY RECTAL ONE; IOPAMIDOL-300 50ML BTL INJ ONE; KETAMINE 10 MG/ML 20 ML VIAL ONE; LACTATED RINGERS 1,000 ML IV SCH; LEVOFLOXACIN 500MG-D5W PMX 500 MG in DEXTROSE/WATER 1 100ML.BAG IVPB STA; LIDOCAINE 1% (10MG/ML) FOR IV START INTRADERMA ONE; LIDOCAINE 1% INJ 10MG/ML (20 ML MDV) ONE; MIDAZOLAM 2 MG/2 ML VIAL ONE; ONDANSETRON 4 MG/2 ML VIAL IVP ONE; ONDANSETRON 4 MG/2 ML VIAL ONE; PROPOFOL 10 MG/ML 20 ML VIAL IV ONE; fentaNYL (PF) 50 MCG/ML 2 ML AMP ONE
[2021-11-22 11:41] VITALS: TEMP 97.9
[2021-11-22 12:25] LABS: Basophils % (A) 1 %; Eosinophils # (A) 0.1 k/uL (0-0.7); Eosinophils % (A) 1 %; HCT 30.9 % (34.0-46.0); HGB 9.2 gm/dL (11.4-16.0); Hypochromasia Marked; Lymphocytes # (A) 1.3 k/uL (1.0-4.8); Lymphocytes % (A) 24 %; MCH 22.9 pg (25.0-35.0); MCHC 29.9 g/dL (31.0-37.0); MCV 76.7 fL (80.0-100.0); Mean Platelet Volume 8.2; Microcytosis Slight; Monocytes # (A) 0.4 k/uL (0-1.0); Monocytes % (A) 7 %; Neutrophils # (A) 3.5 k/uL (1.3-7.7); Neutrophils % (A) 66 %; Platelet Count 312 k/uL (150-450); Poikilocytosis Slight; RBC 4.03 m/uL (3.80-5.40); RDW 15.2 % (11.5-15.5); WBC 5.3 k/uL (3.8-10.6)
[2021-11-22 12:39] LABS: ALT 16 U/L (4-34); AST 23 U/L (14-36); African American GFR (CKD) >90 (>60 ml/min/1.73 sqM); Albumin 3.9 g/dL (3.5-5.0); Alkaline Phosphatase 100 U/L (38-126); Anion Gap 7 mmol/L; Blood Urea Nitrogen 8 mg/dL (7-17); Calcium 9.2 mg/dL (8.4-10.2); Carbon Dioxide 25 mmol/L (22-30); Chloride 108 mmol/L (98-107); Glucose 104 mg/dL (74-99); Non-African American GFR(CKD) 89 (>60 ml/min/1.73 sqM); Potassium 4.4 mmol/L (3.5-5.1); Sodium 140 mmol/L (137-145); Total Bilirubin 0.4 mg/dL (0.2-1.3); Total Protein 6.9 g/dL (6.3-8.2)
[2021-11-22 12:47] LABS: INR 0.9 (<1.2); Prothrombin Time 10.4 sec (9.0-12.0)
--- NOTE | 2021-11-22 13:11 | P.PCN ---
Date of Procedure: 11/22/21 Procedure(s) Performed: Brief history: Patient is a 61 year-old pleasant lady scheduled for an ERCP as part of evaluation of abdominal pain mostly in the right upper quadrant area for the last 2 weeks' duration. She went to the emergency room 2 weeks ago and had a CT as well as ultrasound of abdomen that showed dilated common bile duct. Labs revealed elevated alkaline phosphatase of 146 but serum transaminases were within normal limits. She had history of CVA stools in the past and underwent ERCP with CBD stone extraction about 15 years ago. Subsequently he developed papillary stenosis and hence underwent ERCP with balloon dilation/balloon sphincteroplasty. Her symptoms are similar to when she had "with bile excellent and hence he scheduled for an ERCP to evaluate further Procedure performed: ERCP with balloon sweep Preoperative diagnoses: Epigastric and right upper quadrant abdominal pain of 2 weeks duration and prior history of significant IV sedation per anesthesia: Procedure: After informed consent was obtained from the patient and after the risks benefits and complications including bleeding perforation and pancreatitis explained in detail the patient was brought into the endoscopy unit. The patient was placed in prone position and IV conscious sedation was administered by anesthesia under continuous monitoring. The Olympus side-viewing duodenoscope was then inserted into the mouth and esophagus intubated without any difficulty. The scope was gradually advanced into the stomach and duodenum. The major papilla was identified without any difficulty. There was mild narrowing of the previous sphincterotomy. Using the tapered-tip catheter was able to cannulate the common bile duct and upon injection of the dye the CBD appeared dilated measuring 1.5 cm in diameter with 2 small faint filling defects noted in the distal common bile duct. I wasn't sure whether the there were bubbles versus stones. At this time I proceeded with passing a guidewire through the catheter and exchanging with the 8.5 mm balloon catheter which was passed over the guidewire into the proximal CBD. It was gently inflated and withdrawn and I did not see any stones exiting the ampulla. I repeated this maneuver using 11.5 mm balloon and distal did not see any stones exiting the ampulla. The balloon was able to be retracted through the sphincterotomy site with some difficulty. After repeating this manoever several times and occlusion cholangio-Derrell was performed and did not see any other filling defects. At this time the procedure was terminated and the patient tolerated the procedure well. Impression: Mild papillary stenosis. Common bile duct measuring 1.5 cm in diameter with no obvious stones seen. Pancreatic duct intentionally not cannulated Recommendations: The findings of this examination were discussed with the patient as well as a family. He be observed for an hour and increase a symptomatic she'll be discharged to home and she was advised to follow up in office in 2 weeks.
--- NOTE | 2021-11-22 13:17 | FL ---
Fluoroscopy HISTORY: Pain 47 seconds fluoroscopy time supplied to the referring clinician. 7 intraoperative C-arm images docum ent the procedure. See dictated report from gastroenterology.
[2021-11-22 13:38] VITALS: BP 110/59; PULSE 77; RESP 17
== END ==
LOC: ORWHC2ENDO 10:44
PROVIDERS: ATTEND Internal Medicine Gastroenterology
DX: K83.1 Obstruction of bile duct (principal); K83.8 Other specified diseases of biliary tract; Z86.73 Personal history of transient ischemic attack (TIA), and cerebral infarction without residual deficits; Z79.01 Long term (current) use of anticoagulants; Z79.82 Long term (current) use of aspirin
CPT/HCPCS: 43260; 80053; 85025; 85610; 74330; J2250; J2405; J1956; J2001; J3010; J2704; Q9967

== ENCOUNTER 2023-04-01 16:56 | Observation (INO) | payer MEDICARE ==
[2023-04-01 17:05] LABS: Glucose,Whole Blood 87 mg/dL (70-110)
[2023-04-01 17:18] LABS: Basophils % (A) 0 %; Eosinophils # (A) 0.1 k/uL (0-0.7); Eosinophils % (A) 1 %; HCT 37.4 % (34.0-46.0); HGB 12.5 gm/dL (11.4-16.0); Lymphocytes # (A) 1.8 k/uL (1.0-4.8); Lymphocytes % (A) 25 %; MCH 27.9 pg (25.0-35.0); MCHC 33.6 g/dL (31.0-37.0); Mean Platelet Volume 7.5; Monocytes # (A) 0.6 k/uL (0-1.0); Monocytes % (A) 8 %; Neutrophils # (A) 4.7 k/uL (1.3-7.7); Neutrophils % (A) 64 %; Platelet Count 267 k/uL (150-450); RDW 14.1 % (11.5-15.5); WBC 7.2 k/uL (3.8-10.6)
[2023-04-01 17:28] LABS: ALT 23 U/L (4-34); AST 27 U/L (14-36); African American GFR (CKD) 85 (>60 ml/min/1.73 sqM); Albumin 4.1 g/dL (3.5-5.0); Alkaline Phosphatase 133 U/L (38-126); Anion Gap 14 mmol/L; Blood Urea Nitrogen 16 mg/dL (7-17); Calcium 9.4 mg/dL (8.4-10.2); Carbon Dioxide 19 mmol/L (22-30); Chloride 102 mmol/L (98-107); Glucose 89 mg/dL (74-99); Lipase 172 U/L (23-300); Magnesium 1.9 mg/dL (1.6-2.3); Non-African American GFR(CKD) 74 (>60 ml/min/1.73 sqM); Partial Thromboplastin Time 25.5 sec (22.0-30.0); Potassium 3.4 mmol/L (3.5-5.1); Prothrombin Time 10.3 sec (9.0-12.0); Sodium 135 mmol/L (137-145); Total Bilirubin 0.4 mg/dL (0.2-1.3); Total Protein 7.5 g/dL (6.3-8.2)
[2023-04-01 17:37] LABS: NT-Pro-B-Type Natriuretic Pept 32 pg/mL
--- NOTE | 2023-04-01 17:40 | XR ---
EXAMINATION TYPE: XR chest 2V DATE OF EXAM: 04/01/2023 COMPARISON: 04/14/2022 INDICATION: Chest pain TECHNIQUE: Single frontal view of the chest is obtained. FINDINGS: The heart size is normal. The pulmonary vasculature is normal. There is a linear area of atelectasis within the left lung base. Some mild plate atelectasis at the l eft costophrenic angle. IMPRESSION: 1. Mild platelike atelectasis left base
--- NOTE | 2023-04-01 17:47 | ED ---
Chest Pain HPI - General Chief Complaint: Chest Pain Stated Complaint: chest pain Time Seen by Provider: 04/01/23 17:10 Source: patient, EMS Mode of arrival: EMS Limitations: no limitations - History of Present Illness Initial Comments: 63 year old female past medical history of hypertension, hyperlipidemia, CVA who presents to the emergency room with chest pain from his of breath. States that she was at her [id number]-eii's house when she had sudden onset of symptoms while playing cards. Had significant pressure in her chest that felt like she cou ldn't breathe. She denies previous history of cardiac disease. No history of COPD or asthma. Denies any calf pain or swelling. No history of DVT or PE. EMS did provide the patient with 4 chewable aspirins and nitro. States the nitro alleviated her symptoms some and now grades the pain as a 5 out of 10. Family feels as if the patient is delayed in answering questions. She denies any lateralizing weakness but admits to generalized weakness. No fevers chills or cough. No other alleviating, precipitating or modifying factors - Related Data Home Medications Medication Instructions Recorded Confirmed DULoxetine HCL [Cymbalta] 60 mg PO BID 08/17/14 04/01/23 ALPRAZolam [Xanax] 0.5 mg PO DAILY PRN 05/18/19 04/01/23 Pregabalin [Lyrica] 150 mg PO HS 05/18/19 04/01/23 Metoprolol Tartrate 25 mg PO DAILY 08/24/20 04/01/23 Butalb/Acetaminophen/Caffeine 1 - 2 tab PO Q6H PRN 11/18/21 04/01/23 [Fioricet 50-325-40] Pregabalin [Lyrica] 75 mg PO HS PRN 11/18/21 04/01/23 amLODIPine [Norvasc] 5 mg PO HS 11/18/21 04/01/23 ALPRAZolam [Xanax] 0.5 mg PO HS 04/14/22 04/01/23 Clopidogrel Bisulfate [Plavix] 75 mg PO DAILY 04/14/22 04/01/23 Ketorolac 60mg/2ml Injection 60 mg INJ DAILY PRN 04/14/22 04/01/23 Ubrogepant [Ubrelvy] 100 mg PO DAILY PRN 04/14/22 04/01/23 Hyoscyamine Sulfate [Hyoscyamine 0.125 mg SL QID PRN 04/01/23 04/01/23 Sulfate SL] Ibuprofen [Motrin] 800 mg PO Q8H PRN 04/01/23 04/01/23 Loperamide HCl [Imodium A-D] 2 - 4 mg PO QID PRN 04/01/23 04/01/23 metFORMIN HCL ER [Glucophage XR] 500 mg PO W/SUPPER 04/01/23 04/01/23 niMODipine [Nimotop] 30 mg PO BID 04/01/23 04/01/23 tiZANidine [Zanaflex] 4 mg PO HS 04/01/23 04/01/23 Allergies Allergy/AdvReac Type Severity Reaction Status Date / Time codeine Allergy Nausea & Verified 04/01/23 19:09 Vomiting prochlorperazine Allergy Unknown Verified 04/01/23 19:09 [From Compazine] Sulfa (Sulfonamide Allergy Rash/Hives Verified 04/01/23 19:09 Antibiotics) Review of Systems ROS Statement: Those systems with pertinent positive or pertinent negative responses have been documented in the HPI. ROS Other: All systems not noted in ROS Statement are negative. Past Medical History Past Medical History: CVA/TIA, GERD/Reflux, Hyperlipidemia, Hypertension, Thyroid Disorder Additional Past Medical History / Comment(s): migraines daily, TIA x 3-no residual effects, episodic biliary colic as a result from choledocholithiasis with gravel on previous ERCP, hx anemia, History of Any Multi-Drug Resistant Organisms: None Reported Past Surgical History: Section, Cholecystectomy, Hysterectomy, Joint Replacement, Orthopedic Surgery Additional Past Surgical History / Comment(s): thorasic outlet surgery, right shoulder surgery, ERCP, . right hip replacement x 4, rt knee replacement , bunionectomy rt foot x2, Past Anesthesia/Blood Transfusion Reactions: Motion Sickness Past Psychological History: Anxiety Smoking Status: Never smoker - Past Family History Father Family Medical History: Cancer Additional Family Medical History / Comment(s): throat and skin Mother Family Medical History: Cancer Additional Family Medical History / Comment(s): skin General Exam Limitations: physical limitation (slow/stuttered speech) General appearance: alert, in no apparent distress Head exam: Present: atraumatic, normocephalic, normal inspection Eye exam: Present: normal appearance, PERRL, EOMI. Absent: scleral icterus, conjunctival injection, periorbital swelling ENT exam: Present: normal exam, mucous membranes moist Neck exam: Present: normal inspection. Absent: tenderness, meningismus, lymphadenopathy Respiratory exam: Present: normal lung sounds bilaterally. Absent: respiratory distress, wheezes, rales, rhonchi, stridor Cardiovascular Exam: Present: normal rhythm, tachycardia, normal heart sounds. Absent: systolic murmur, diastolic murmur, rubs, gallop, clicks GI/Abdominal exam: Present: soft, normal bowel sounds. Absent: distended, tenderness, guarding, rebound, rigid Extremities exam: Present: normal inspection, full ROM, normal capillary refill. Absent: tenderness, pedal edema, joint swelling, calf tenderness Back exam: Present: normal inspection Neurological exam: Present: alert, oriented X3, CN II-XII intact Psychiatric exam: Present: normal affect, normal mood Skin exam: Present: warm, dry, intact, normal color. Absent: rash Course Vital Signs 04/01/23 04/01/23 04/01/23 17:08 17:30 18:00 Temperature 98.1 F Pulse Rate 108 H 116 H 117 H Respiratory 16 18 18 Rate Blood Pressure 156/99 162/92 145/93 O2 Sat by Pulse 99 96 98 Oximetry 04/01/23 19:41 Temperature 99.0 F Pulse Rate 120 H Respiratory 18 Rate Blood Pressure 148/82 O2 Sat by Pulse 96 Oximetry Chest Pain MDM - MDM Was pt. sent in by a medical professional or institution (, PA, CAR SANDER, urgent care, hospital, or custodial...) When possible be specific @ -No Did you speak to anyone other than the patient for history (EMS, parent, family, police, friend...)? What history was obtained from this source @ -EMS provides history Did you review nursing and triage notes (agree or disagree)? Why? @ -I reviewed and agree with nursing and triage notes Were old charts reviewed (outside hosp., previous admission, EMS record, old EKG, old radiological studies, urgent care reports/EKG's, custodial records)? Report findings @ -No old charts were reviewed Differential Diagnosis (chest pain, altered mental status, abdominal pain women, abdominal pain men, vaginal bleeding, weakness, fever, dyspnea, syncope, headache, dizziness, GI bleed, back pain, seizure, CVA, palpatations, mental health, musculoskeletal)? @ -Differential Chest Pain: Stable Angina, Unstable Angina, STEMI, NSTEMI Aortic Dissection, Pneumothorax, Musculoskeletal, Esophageal Spasm GERD, Cholecystitis, Pancreatitis, Zoster, this is not meant to be an all-inclusive list. EKG interpreted by me (3pts min.). @ -Yes and demonstrates sinus tach with a rate of 116. HI interval 155. QRS 36. QTC of 34. No acute ST segment elevations or depressions X-rays interpreted by me (1pt min.). @ -Yes and demonstrates no acute intrathoracic process CT interpreted by me (1pt min.). @ -Yes and demonstrates no PE U/S interpreted by me (1pt. min.). @ -None done What testing was considered but not performed or refused? (CT, X-rays, U/S, labs)? Why? @ -None What meds were considered but not given or refused? Why? @ -None Did you discuss the management of the patient with other professionals (professionals i.e. , PA, CAR SANDER, lab, RT, psych nurse, social sciences instructor, patient biller, teacher, classification officer, registered nurse hh case manager)? Give summary @ -Spoke with Mariluz from [facility] Was smoking cessation discussed for >3mins.? @ -No Was critical care preformed (if so, how long)? @ -No Were there social determinants of health that impacted care today? How? (Homelessness, low income, unemployed, alcoholism, drug addiction, transportation, low edu. Level, literacy, decrease access to med. care, long-term, rehab)? @ -No Was there de-escalation of care discussed even if they declined (Discuss DNR or withdrawal of care, Hospice)? DNR status @ -No What co-morbidities impacted this encounter? (DM, HTN, Smoking, COPD, CAD, Cancer, CVA, ARF, Chemo, Hep., AIDS, mental health diagnosis, sleep apnea, morbid obesity)? @ -Hypertension, hyperlipidemia, anxiety Was patient admitted / discharged? Hospital course, mention meds given and route, prescriptions, significant lab abnormalities, going to OR and other pertinent info. @ -Upon arrival the patient was placed in room 3. Thorough history and physical exam was performed. Patient placed on continuous pulse ox and cardiac monitoring. 12-lead EKG was obtained. Laboratory studies are conducted. D- dimer is elevated therefore the patient does go for CT of her chest which does not demonstrate a PE. CT of the brain was performed due to the delayed speech which demonstrates no acute intracranial process. Patient does continue to remain tachycardic. Recommended admission. Patient was already provided with her dose of aspirin by EMS. Patient was agreeable to the plan. Spoke with Sandeep mendiola from [facility] who agreed to admit the patient Undiagnosed new problem with uncertain prognosis? @ -yes Drug Therapy requiring intensive monitoring for toxicity (Heparin, Nitro, Insulin, Cardizem)? @ -No Were any procedures done? @ -No Diagnosis/symptom? @ -Acute chest pain, acute tachycardia Acute, or Chronic, or Acute on Chronic? @ -Acute Uncomplicated (without systemic symptoms) or Complicated (systemic symptoms)? @ -Complicated Side effects of treatment? @ -No Exacerbation, Progression, or Severe Exacerbation? @ -No Poses a threat to life or bodily function? How? (Chest pain, [place], [place], pneumonia, PE, COPD, DKA, ARF, appy, cholecystitis, CVA, Diverticulitis, Homicidal, Suicidal, threat to staff... and all critical care pts) @ -Yes chest pain could represent acute coronary event Disposition Clinical Impression: Chest pain Disposition: ADMITTED IP TO THIS [facility] Condition: Stable Is patient prescribed a controlled substance at d/c from ED?: No Time of Disposition: 18:53 Decision to Admit Reason: Admit from EC Decision Date: 04/01/23 Decision Time: 18:53
--- NOTE | 2023-04-01 18:58 | CT ---
EXAMINATION TYPE: CT chest angio for PE CT DLP: 548 mGycm, Automated exposure control for dose reduction was used. DATE OF EXAM: 04/01/2023 6:44 PM COMPARISON: Chest radiograph 04/01/2023 CLINICAL INDICATION:Female, 63 years old with history of chest pain, sob, elevated d-dimer; Chest kelley n, sob, elevated d-dimer. TECHNIQUE/CONTRAST: CTA scan of the thorax is performed with IV Contrast, patient injected with 120 ml mL of Isovue 370, MIP images are created and reviewed these are created on a separate workstation.. FINDINGS: Pulmonary Artery: There is no evidence for a filling defect within the pulmonary vasculature to sugge st acute pulmonary embolism. The pulmonary artery is of normal size. Lungs/Pleura: No evidence of focal consolidation, pleural effusion or pneumothorax. Airway: Large airways are patent. Heart: Heart is within normal limits for size. Vasculature: No evidence of aortic aneurysm. Large hiatal hernia Mediastinum: No gross evidence of adenopathy. Musculoskeletal: No acute osseous abnormalities Soft Tissues: Unremarkable. Lower neck: No significant findings. Upper Abdomen: Central intrahepatic and extra hepatic biliary dilation likely post cholecystectomy ph ysiology. IMPRESSION: 1. No evidence of pulmonary embolism. 2. Large hiatal hernia
--- NOTE | 2023-04-01 19:02 | CT ---
EXAMINATION TYPE: CT brain wo con CT DLP: 1232 mGycm, Automated exposure control for dose reduction was used. DATE OF EXAM: 04/01/2023 6:44 PM COMPARISON: 04/16/2022 CLINICAL INDICATION:Female, 63 years old with history of confused speech, Confused speech. TECHNIQUE: Brain: Axial CT images of the brain were obtained with coronal and sagittal reformats created and rev iewed. Contrast used: None. Oral contrast used: None. FINDINGS: Brain: Extra-axial spaces: No abnormal extra-axial fluid collections. Ventricular system: Within normal limits Cerebral parenchyma: No acute intraparenchymal hemorrhage or mass effect. The schulte-white junction is well differentiated. Cerebellum: Unremarkable. Mass effect: No evidence of midline shift. Intracranial vasculature: unremarkable Soft tissues: Normal. Calvarium/osseous structures: No depressed skull fracture. Paranasal sinuses and mastoid air cells: Mild scattered paranasal sinus disease. Visualized orbits: Orbital contents are intact. IMPRESSION: No acute intracranial process.
[2023-04-01] MEDS ORDERED: NALOXONE 0.4 MG/ML 1 ML VIAL IV PRN (19:14)
[2023-04-01] MEDS ORDERED: ONDANSETRON 4 MG/2 ML VIAL IVP PRN (19:14)
[2023-04-01] MEDS ORDERED: ALPRAZolam 0.5 MG TAB PO PRN (19:18)
[2023-04-01] MEDS ORDERED: PREGABALIN 75 MG CAP PO PRN (19:18)
[2023-04-01] MEDS ORDERED: BUTALB/APAP/CAFF 50-325-40MG TAB PO PRN (19:18)
[2023-04-01] MEDS ORDERED: LORazepam 2 MG/ML INJ IV PRN (19:39)
[2023-04-01] MEDS: SODIUM CHLORIDE 0.9% 1,000 ML IV SCH (19:40)
[2023-04-01] MEDS ORDERED: PREGABALIN 75 MG CAP PO SCH (21:00)
[2023-04-01] MEDS ORDERED: ALPRAZolam 0.5 MG TAB PO SCH (21:00)
[2023-04-01] MEDS ORDERED: amLODIPine 5 MG TAB PO SCH (21:00)
[2023-04-01] MEDS: DULoxetine HCL 60 MG CAPSULE.DR PO SCH (21:08)
[2023-04-01] MEDS: NIMODIPINE 30 MG PO SCH (21:08)
[2023-04-02 08:41] VITALS: BP 109/62; PULSE 115; RESP 17; TEMP 98.4
[2023-04-02] MEDS ORDERED: POTASSIUM CHLORIDE ER 20 MEQ TAB.ER PO STA (08:55)
[2023-04-02] MEDS ORDERED: METOPROLOL TARTRATE 25 MG TAB PO SCH ×3 (09:00→16:00)
[2023-04-02] MEDS ORDERED: CLOPIDOGREL 75 MG TAB PO SCH (09:00)
[2023-04-02] MEDS: NIMODIPINE 30 MG PO SCH (09:20)
[2023-04-02] MEDS: DULoxetine HCL 60 MG CAPSULE.DR PO SCH (09:25)
[2023-04-02] MEDS: SODIUM CHLORIDE 0.9% 1,000 ML IV SCH (09:26)
[2023-04-02] MEDS ORDERED: DEXTROSE 50% SYRINGE 50 ML IVP PRN ×2 (09:32)
[2023-04-02] MEDS ORDERED: PANTOPRAZOLE 40 MG TABLET PO SCH (09:45)
[2023-04-02 11:00] LABS: Basophils # (A) 0.04 X 10*3/uL (0.00-0.10); Basophils % (A) 0.7 %; Eosinophils # (A) 0.04 X 10*3/uL (0.04-0.35); Eosinophils % (A) 0.7 %; HCT 38.8 % (37.2-46.3); Lymphocytes # (A) 1.99 X 10*3/uL (0.90-5.00); Lymphocytes % (A) 35.3 %; MCH 26.3 pg (27.0-32.0); MCHC 30.9 d/dL (32.0-37.0); MCV 85.1 FL (80.0-97.0); Mean Platelet Volume 10.4 FL (9.5-12.2); Monocytes # (A) 0.58 X 10*3/uL (0.20-1.00); Monocytes % (A) 10.3 %; NRBC Per 100 WBC 0 X 10*3/uL (0.00-0.01); Neutrophils # (A) 2.96 X 10*3/uL (1.80-7.70); Neutrophils % (A) 52.6 %; Platelet Count 298 X 10*3/uL (140-440); RBC 4.56 X 10*6/uL (4.10-5.20); RDW 14.4 % (11.5-14.5); WBC 5.63 X 10*3/uL (4.50-10.00)
--- NOTE | 2023-04-02 11:12 | US ---
EXAMINATION TYPE: US venous doppler duplex LE BI DATE OF EXAM: 04/02/2023 9:34 AM COMPARISON: 12/01/2015 CLINICAL INDICATION: Female, 63 years old with history of swelling, elevated d-dimer; elevated d-dime r, no swelling SIDE PERFORMED: Bilateral TECHNIQUE: The lower extremity deep venous system is examined utilizing real time linear array sonog jules with graded compression, doppler sonography and color-flow sonography. VESSELS IMAGED: Common Femoral Vein Deep Femoral Vein Greater Saphenous Vein * Femoral Vein Popliteal Vein Small Saphenous Vein * Proximal Calf Veins (* superficial vessels) Right Leg: Negative for DVT Left Leg: Negative for DVT IMPRESSION: Grayscale, color doppler, spectral doppler imaging performed of the deep veins of the lo wer extremities. There is normal flow, compressibility, vascular waveforms.
[2023-04-02 11:16] LABS: BUN/Creat Ratio 16.62 Ratio (12.00-20.00); Blood Urea Nitrogen 13.3 mg/dL (9.0-27.0); Calcium 9.4 mg/dL (8.7-10.3); Carbon Dioxide 22.2 mmol/L (21.6-31.8); Chloride 104 mmol/L (96-109); Glucose 84 mg/dL (70-110); Potassium 4.7 mmol/L (3.5-5.5); Sodium 139 mmol/L (135-145)
[2023-04-02] MEDS ORDERED: INSULIN ASPART (NovoLOG) 100 UNIT/ML VIAL SQ SCH (12:30)
--- NOTE | 2023-04-02 13:20 | CONS ---
CONSULTATION HISTORY OF PRESENT ILLNESS: This is a 63-year-old lady with history of hypertension, hyperlipidemia, previous questionable CVA, but no clear-cut documented arrhythmia other than sinus rhythm and sinus tachycardia. She has a loop recorder placed because of what seemed to be an occult CVA or a TIA. However, a detailed workup was performed in March 2022 and a decision was made that this was a complex migraine and not an actual CVA. She also complained of cervical spine arthritis, required a radiofrequency procedure for which she insisted that her loop recorder be removed and therefore this was removed in 2021. She comes into the hospital complaining of what she says while she was playing cards she suddenly felt chest pain and shortness of breath. Her symptoms have resolved. She had a CT angiogram performed. No pulmonary embolism. Troponins are normal. She is resting comfortably without symptoms. She appears to be slightly tachycardic. She has no chest pain or shortness of breath at the time of my evaluation. PAST MEDICAL HISTORY: Questionable TIA, hypertension, hyperlipidemia, there are also complex migraines. She is status post cholecystectomy, hysterectomy, and some orthopedic surgery. The patient also has type 2 diabetes mellitus. MEDICATIONS: Medications at home include: 1. Metformin. 2. Aspirin. 3. Plavix. 4. Lyrica. 5. Metoprolol tartrate 25 mg daily. PHYSICAL EXAMINATION: VITAL SIGNS: Blood pressure is 140/80, pulse rate is about 104 per minute. HEENT: Unremarkable. Fundus was not examined by me. NECK: Supple. There is no JVD. I do not hear a carotid bruit. HEART: S1 and S2 heard normally. No significant rub, murmur or gallop. LUNGS: Clear. ABDOMEN: Soft, nontender. EXTREMITIES: Lower extremities reveal normal pulses. No edema. CENTRAL NERVOUS SYSTEM: Normal. IMAGING: EKG revealed sinus mechanism, sinus tachycardia, no acute changes. IMPRESSION: 1. Unexplained tachycardia. 2. Hypertension. 3. Hyperlipidemia. 4. Episode of shortness of breath that has resolved. CT angio negative for pulmonary embolism. RECOMMENDATIONS: I am recommending that we obtain a thyroid function test to rule out any hyperthyroidism. Increase the beta-maye to 25 mg b.i.d. of metoprolol tartrate. Increase activity and discharge her if the thyroid function tests are normal. I will see her in the office in 1 week. I discussed my thoughts in detail with the patient to call me for a question, concern, or problem. MMMIK / FIDELN: [id number] /
--- NOTE | 2023-04-02 16:07 | P.HPIM ---
History of Present Illness H&P Date: 04/02/23 History of present illness; patient is 63-year-old lady with past medical histor y significant for hypertension, hyperlipidemia, CVA who presented to the ER because of chest pain and shortness of breath. Patient stated that she was at her relative's home while playing cards and she started experiencing chest pressure which was central in location, nonradiating, no aggravating or relieving factors associated with this chest pressure. Patient did experience shortness of breath at that time. There was no complain nausea or vomiting. No complain of any diaphoresis. Stated that she had never had such symptoms before. Because of this chest pain, EMS was called, patient was given nitro and aspirin en route to the ER, Initial lab work done in the ER showed to be 7.2, hemoglobin 12.5, platelet count was 267, sodium 135, potassium 3.4, BUN 16, creatinine 0.85, d-dimer 1.14, troponin was 0.012 EKG done in the ER showed sinus tachycardia heart rate of 116, no ST segment d epression seen, no T-wave inversion in any leads. Chest x-ray done in the ER CTA chest done showed no evidence of pulmonary embolus, large hiatal hernia seen CT brain negative for any acute intrarenal process She was admitted to medicine service REVIEW OF SYSTEMS: CONSTITUTIONAL: No fever, no malaise, no fatigue. HEENT: No recent visual problems or hearing problems. Denied any sore throat. CARDIOVASCULAR: As mentioned in HPI PULMONARY: no cough, no hemoptysis. GASTROINTESTINAL: No diarrhea, no nausea, no vomiting, no abdominal pain. NEUROLOGICAL: No headaches, no weakness, no numbness. HEMATOLOGICAL: Denies any bleeding or petechiae. GENITOURINARY: Denies any burning micturition, frequency, or urgency. MUSCULOSKELETAL/RHEUMATOLOGICAL: Denies any joint pain, swelling, or any muscle pain. ENDOCRINE: Denies any polyuria or polydipsia. The rest of the 14-point review of systems is negative. PHYSICAL EXAMINATION: GENERAL: The patient is alert and oriented x3, not in any acute distress. Well developed, well nourished. HEENT: Pupils are round and equally reacting to light. EOMI. No scleral icterus. No conjunctival pallor. Normocephalic, atraumatic. No pharyngeal erythema. No thyromegaly. CARDIOVASCULAR: S1 and S2 present. No murmurs, rubs, or gallops. PULMONARY: Chest is clear to auscultation, no wheezing or crackles. ABDOMEN: Soft, nontender, nondistended, normoactive bowel sounds. No palpable organomegaly. MUSCULOSKELETAL: No joint swelling or deformity. EXTREMITIES: No cyanosis, clubbing, or pedal edema. NEUROLOGICAL: Gross neurological examination did not reveal any focal deficits. SKIN: No rashes. Assessment and plan Chest pain Hypokalemia Hypertension Lmn-[id number] diabetes mellitus Hiatal hernia Monitor vital signs Monitor CBC Monitor CMP Continue telemetry monitoring Monitor troponins D-dimer was elevated, CT chest showed no PE Ordered ultrasound of lower extremities. Start Protonix For hiatal hernia, patient needs evaluation by CT surgery outpatient Cardiology consulted Labs and medication were reviewed.. Continue same treatment. Continue with symptomatic treatment. Resume home medication. Monitor labs and vitals. DVT and GI prophylaxis. Further recommendations as per clinical course of the patient Dictation was produced using [employer] dictation software. please excuse any grammatical, word or spelling errors. Past Medical History Past Medical History: CVA/TIA, GERD/Reflux, Hyperlipidemia, Hypertension, Thyroid Disorder Additional Past Medical History / Comment(s): migraines daily, TIA x 3-no residual effects, episodic biliary colic as a result from choledocholithiasis with gravel on previous ERCP, hx anemia, History of Any Multi-Drug Resistant Organisms: None Reported Past Surgical History: Section, Cholecystectomy, Hysterectomy, Joint Replacement, Orthopedic Surgery Additional Past Surgical History / Comment(s): thorasic outlet surgery, right shoulder surgery, ERCP, . right hip replacement x 4, rt knee replacement , bunionectomy rt foot x2, Past Anesthesia/Blood Transfusion Reactions: Motion Sickness Past Psychological History: Anxiety Smoking Status: Never smoker - Past Family History Father Family Medical History: Cancer Additional Family Medical History / Comment(s): throat and skin Mother Family Medical History: Cancer Additional Family Medical History / Comment(s): skin Medications and Allergies Home Medications Medication Instructions Recorded Confirmed Type DULoxetine HCL [Cymbalta] 60 mg PO BID 08/17/14 04/01/23 History ALPRAZolam [Xanax] 0.5 mg PO DAILY PRN 05/18/19 04/01/23 History Pregabalin [Lyrica] 150 mg PO HS 05/18/19 04/01/23 History Metoprolol Tartrate 25 mg PO DAILY 08/24/20 04/01/23 History Butalb/Acetaminophen/Caffeine 1 - 2 tab PO Q6H PRN 11/18/21 04/01/23 History [Fioricet 50-325-40] Pregabalin [Lyrica] 75 mg PO HS PRN 11/18/21 04/01/23 History amLODIPine [Norvasc] 5 mg PO HS 11/18/21 04/01/23 History ALPRAZolam [Xanax] 0.5 mg PO HS 04/14/22 04/01/23 History Clopidogrel Bisulfate [Plavix] 75 mg PO DAILY 04/14/22 04/01/23 History Ketorolac 60mg/2ml Injection 60 mg INJ DAILY PRN 04/14/22 04/01/23 History Ubrogepant [Ubrelvy] 100 mg PO DAILY PRN 04/14/22 04/01/23 History Hyoscyamine Sulfate [Hyoscyamine 0.125 mg SL QID PRN 04/01/23 04/01/23 History Sulfate SL] Ibuprofen [Motrin] 800 mg PO Q8H PRN 04/01/23 04/01/23 History Loperamide HCl [Imodium A-D] 2 - 4 mg PO QID PRN 04/01/23 04/01/23 History metFORMIN HCL ER [Glucophage XR] 500 mg PO W/SUPPER 04/01/23 04/01/23 History niMODipine [Nimotop] 30 mg PO BID 04/01/23 04/01/23 History tiZANidine [Zanaflex] 4 mg PO HS 04/01/23 04/01/23 History Pantoprazole [Protonix] 40 mg PO DAILY #30 tab 04/02/23 Rx Allergies Allergy/AdvReac Type Severity Reaction Status Date / Time codeine Allergy Nausea & Verified 04/01/23 19:09 Vomiting prochlorperazine Allergy Unknown Verified 04/01/23 19:09 [From Compazine] Sulfa (Sulfonamide Allergy Rash/Hives Verified 04/01/23 19:09 Antibiotics) Physical Exam Vitals: Vital Signs Temp Pulse Pulse Resp BP BP BP 04/02/23 07:00 98.4 F 115 H 17 109/62 04/02/23 02:06 98.1 F 116 H 16 116/66 04/01/23 20:32 98.6 F 119 H 16 144/82 04/01/23 19:41 99.0 F 120 H 18 148/82 04/01/23 18:00 117 H 18 145/93 04/01/23 17:30 116 H 18 162/92 04/01/23 17:08 98.1 F 108 H 16 156/99 Pulse Ox 04/02/23 07:00 94 L 04/02/23 02:06 98 04/01/23 20:32 97 04/01/23 19:41 96 04/01/23 18:00 98 04/01/23 17:30 96 04/01/23 17:08 99 Intake and Output 04/01/23 04/02/23 04/02/23 22:59 06:59 14:59 Other: # Voids 1 1 Weight 56.699 kg Results CBC & Chem 7: 04/02/23 06:14 04/02/23 06:14 Labs: Abnormal Lab Results - Last 24 Hours (Table) 04/01/23 04/01/23 Range/Units 17:10 17:10 D-Dimer 1.14 H (<0.60) mg/L FEU Sodium 135 L (137-145) mmol/L Potassium 3.4 L (3.5-5.1) mmol/L Carbon Dioxide 19 L (22-30) mmol/L Alkaline Phosphatase 133 H (38-126) U/L
--- NOTE | 2023-04-02 16:09 | P.DS ---
Providers Date of admission: 04/01/23 19:16 Expected date of discharge: 04/02/23 Attending physician: Jocelin Najera Consults: 04/01/23 19:14 Consult Physician Urgent Consulting Provider: [facility] Consult Reason/Comments: chest pain, sinus tachycardia Do you want consulting provider notified?: Yes Primary care physician: Pratik Athol Hospital Course: Discharge diagnoses; Chest pain Hypokalemia Hypertension [id number] diabetes mellitus Hiatal hernia Hospital course; patient is 63-year-old lady with past medical history significant for hypertension, hyperlipidemia, CVA who presented to the ER because of chest pain and shortness of breath. Patient stated that she [place] relative[place] and she started experiencing chest pressure which was central in location, nonradiating, no aggravating or relieving factors associated with this chest pressure. Patient did experience shortness of breath at that time. There was no complain nausea or vomiting. No complain of any diaphoresis. Stated that she had never had such symptoms before. Because of this chest pain, EMS was called, patient was given nitro and aspirin en route to the ER, Initial lab work done in the ER showed to be 7.2, hemoglobin 12.5, platelet count was 267, sodium 135, potassium 3.4, BUN 16, creatinine 0.85, d-dimer 1.14, troponin was 0.012 EKG done in the ER showed sinus tachycardia heart rate of 116, no ST segment depression seen, no T-wave inversion in any leads. Chest x-ray done in the ER CTA chest done showed no evidence of pulmonary embolus, large hiatal hernia seen CT brain negative for any acute intrarenal process She was admitted to medicine service Cardiology evaluated the patient, recommended increasing the dose of Toprol to 25 mg daily, recommend outpatient follow-up. Regarding hiatal hernia, patient was told to follow-up outpatient with GI PHYSICAL EXAMINATION: GENERAL: The patient is alert and oriented x3, not in any acute distress. Well developed, well nourished. HEENT: Pupils are round and equally reacting to light. EOMI. No scleral icterus. No conjunctival pallor. Normocephalic, atraumatic. No pharyngeal erythema. No thyromegaly. CARDIOVASCULAR: S1 and S2 present. No murmurs, rubs, or gallops. PULMONARY: Chest is clear to auscultation, no wheezing or crackles. ABDOMEN: Soft, nontender, nondistended, normoactive bowel sounds. No palpable organomegaly. MUSCULOSKELETAL: No joint swelling or deformity. EXTREMITIES: No cyanosis, clubbing, or pedal edema. NEUROLOGICAL: Gross neurological examination did not reveal any focal deficits. SKIN: No rashes. Dictation was produced using [employer] dictation software. please excuse any grammatical, word or spelling errors. Patient Condition at Discharge: Stable Plan - Discharge Summary New Discharge Prescriptions: New Pantoprazole [Protonix] 40 mg PO DAILY #30 tab Continue DULoxetine HCL [Cymbalta] 60 mg PO BID ALPRAZolam [Xanax] 0.5 mg PO DAILY PRN PRN Reason: Anxiety Pregabalin [Lyrica] 150 mg PO HS Metoprolol Tartrate 25 mg PO DAILY amLODIPine [Norvasc] 5 mg PO HS Butalb/Acetaminophen/Caffeine [Fioricet 50-325-40] 1 - 2 tab PO Q6H PRN PRN Reason: Migraine Headache Pregabalin [Lyrica] 75 mg PO HS PRN PRN Reason: sleep/pain Ubrogepant [Ubrelvy] 100 mg PO DAILY PRN PRN Reason: Migraine Headache Ketorolac 60mg/2ml Injection 60 mg INJ DAILY PRN PRN Reason: Migraine Headache ALPRAZolam [Xanax] 0.5 mg PO HS metFORMIN HCL ER [Glucophage XR] 500 mg PO W/SUPPER Hyoscyamine Sulfate [Hyoscyamine Sulfate SL] 0.125 mg SL QID PRN PRN Reason: cramps Clopidogrel Bisulfate [Plavix] 75 mg PO DAILY niMODipine [Nimotop] 30 mg PO BID Ibuprofen [Motrin] 800 mg PO Q8H PRN PRN Reason: Pain Or Fever > 100.5 tiZANidine [Zanaflex] 4 mg PO HS Loperamide HCl [Imodium A-D] 2 - 4 mg PO QID PRN PRN Reason: Diarrhea Discharge Medication List DULoxetine HCL [Cymbalta] 60 mg PO BID 08/17/14 [History] ALPRAZolam [Xanax] 0.5 mg PO DAILY PRN 05/18/19 [History] Pregabalin [Lyrica] 150 mg PO HS 05/18/19 [History] Metoprolol Tartrate 25 mg PO DAILY 08/24/20 [History] Butalb/Acetaminophen/Caffeine [Fioricet 50-325-40] 1 - 2 tab PO Q6H PRN 11/18/21 [History] Pregabalin [Lyrica] 75 mg PO HS PRN 11/18/21 [History] amLODIPine [Norvasc] 5 mg PO HS 11/18/21 [History] ALPRAZolam [Xanax] 0.5 mg PO HS 04/14/22 [History] Clopidogrel Bisulfate [Plavix] 75 mg PO DAILY 04/14/22 [History] Ketorolac 60mg/2ml Injection 60 mg INJ DAILY PRN 04/14/22 [History] Ubrogepant [Ubrelvy] 100 mg PO DAILY PRN 04/14/22 [History] Hyoscyamine Sulfate [Hyoscyamine Sulfate SL] 0.125 mg SL QID PRN 04/01/23 [History] Ibuprofen [Motrin] 800 mg PO Q8H PRN 04/01/23 [History] Loperamide HCl [Imodium A-D] 2 - 4 mg PO QID PRN 04/01/23 [History] metFORMIN HCL ER [Glucophage XR] 500 mg PO W/SUPPER 04/01/23 [History] niMODipine [Nimotop] 30 mg PO BID 04/01/23 [History] tiZANidine [Zanaflex] 4 mg PO HS 04/01/23 [History] Pantoprazole [Protonix] 40 mg PO DAILY #30 tab 04/02/23 [Rx] Follow up Appointment(s)/Referral(s): Brandi Bruner MD [STAFF PHYSICIAN] - 04/11/23 2:30 pm (Sun or next week) Jammie Clifton MD [STAFF PHYSICIAN] - 1 Week Pratki Martines DO [Primary Care Provider] - 1-2 days Patient Instructions/Handouts: Chest Pain (DC) Activity/Diet/Wound Care/Special Instructions: Patient is to follow up outpatient with GI for hiatal hernia Discharge Disposition: HOME SELF-CARE
[2023-04-02] MEDS ORDERED: tiZANidine 4 MG TAB PO SCH (21:00)
== END 2023-04-02 13:31 | disposition home or self-care (01) ==
LOC: EC 16:56 → 6NMEDSUR 19:16
PROVIDERS: ADMIT Hospitalist; ATTEND Hospitalist
DX: R07.89 Other chest pain (principal); E87.6 Hypokalemia; R06.02 Shortness of breath; R00.0 Tachycardia, unspecified; R79.89 Other specified abnormal findings of blood chemistry; I10 Essential (primary) hypertension; E78.5 Hyperlipidemia, unspecified; K21.9 Gastro-esophageal reflux disease without esophagitis; R53.1 Weakness; R47.89 Other speech disturbances; K44.9 Diaphragmatic hernia without obstruction or gangrene; G43.809 Other migraine, not intractable, without status migrainosus; M47.812 Spondylosis without myelopathy or radiculopathy, cervical region; D64.9 Anemia, unspecified; F41.9 Anxiety disorder, unspecified; Z79.82 Long term (current) use of aspirin; Z79.02 Long term (current) use of antithrombotics/antiplatelets; Z79.84 Long term (current) use of oral hypoglycemic drugs; Z79.899 Other long term (current) drug therapy; Z88.2 Allergy status to sulfonamides; Z88.5 Allergy status to narcotic agent; Z88.8 Allergy status to other drugs, medicaments and biological substances; Z96.651 Presence of right artificial knee joint; Z96.641 Presence of right artificial hip joint; Z86.73 Personal history of transient ischemic attack (TIA), and cerebral infarction without residual deficits; Z87.19 Personal history of other diseases of the digestive system; Z90.710 Acquired absence of both cervix and uterus; Z90.49 Acquired absence of other specified parts of digestive tract; Z98.891 History of uterine scar from previous surgery; Z98.890 Other specified postprocedural states; Z80.0 Family history of malignant neoplasm of digestive organs; Z80.8 Family history of malignant neoplasm of other organs or systems
CPT/HCPCS: 96361 ×3; 96374; 99285; 36415; 93005; 85379; 83880; 80053; 80048; 84443; 83690; 83735; 84484; 85025 ×2; 85610; 85730; 71046; 93970; 70450; 71275; G0378 ×2; J2060; Q9967

== ENCOUNTER → 2023-08-08 | Outpatient (CLI) | payer MEDICARE ==
--- NOTE | 2023-08-12 17:32 | MR ---
EXAMINATION TYPE: MRI abdomen without contrast MR MRCP DATE OF EXAM: 08/08/2023 COMPARISON: 08/18/2014 HISTORY: 63-year-old female K80.30 CALCULUS OF BILE DUCT WITH CHOLANGITIS, Rt side abdomen pain Technique: Multiplanar, multisequence images of the abdomen without IV contrast. Highly T2 weighted i mages of the pancreatic biliary system were also obtained. Rotational 3-D reconstructions performed o n a dedicated independent workstation. FINDINGS: There is a moderate to large hiatal hernia with half the stomach located within the lower chest. Hear t borderline enlarged without pericardial effusion. Liver normal size at 14.2 cm. No focal liver lesion is seen. Overall caliber of the bile duct has improved now 1.1 cm versus 1.6 cm on 08/18/2014. Suspect a fold along the mid bile duct rather than a focal narrowing. Refer to coronal series 301 image 19. The lower bile duct measures 7 mm with distal tapering. No other abnormal filling defect is identified. There is residual prominent mild intrahepatic biliary ductal dilatation that remains, though also considerably improved from 2014. MRCP images show sugges tion of some beaded contour to the intrahepatic biliary ducts. There is slight prominence of the main pancreatic duct but no abnormal dilatation seen. Gallbladder surgically absent. Adrenal glands, kidneys, spleen, and pancreas appear within normal limits. No upper abdominal ascites, lymphadenopathy, or gross bowel abnormality is seen. IMPRESSION: 1. Prominent residual mild intrahepatic and extrahepatic biliary ductal dilatation. Overall bile duct caliber has improved to 1.1 cm versus 1.6 cm, previously in 2014. No abnormal filling defect/stone i dentified. 2. MRCP images show beaded contour to the intrahepatic bile ducts which can be seen with primary scle rosing cholangitis. Clinically correlate. 3. Moderate to large hiatal hernia with half of the stomach located in the lower chest.
== END | disposition home or self-care (01) ==
LOC: RADMRIMAIN 07:28
PROVIDERS: ATTEND Internal Medicine Gastroenterology
DX: K80.30 Calculus of bile duct with cholangitis, unspecified, without obstruction (principal); K44.9 Diaphragmatic hernia without obstruction or gangrene; Z90.49 Acquired absence of other specified parts of digestive tract
CPT/HCPCS: 74181

== ENCOUNTER → 2023-10-12 | Outpatient (CLI) | payer MEDICARE ==
--- NOTE | 2023-10-15 19:43 | MM ---
Reason for Exam: Screening (asymptomatic). Last mammogram was performed 4 year(s) and 5 month(s) ago. Patient History: Menarche at age 14. First Full-Term at age 21. Left ovary removed at age 38. Right ovary removed at age 38. Hysterectomy at age 38. Postmenopausal. Currently using Estrogen, beginning at age 39 for 13 years. Benign Excisional Biopsy on the left side. Benign Excisional Biopsy on the left side. Risk Values: Brielle 5 year model risk: 2.1%. NCI Lifetime model risk: 9.2%. Prior Study Comparison: 08/12/2015 Bilateral Screening Mammogram, [facility]. 01/16/2017 Bilateral Screening Mammogram, [facility]. 05/12/2019 Bilateral Screening Mammogram, [facility]. Tissue Density: The breast tissue is heterogeneously dense. This may lower the sensitivity of mammography. Findings: Analyzed By CAD. Unchanged asymmetric densities on the left. Nodular asymmetry central inner left cc view middle depth have become more defined. Further evaluation is recommended. Otherwise, no significant change. Overall Assessment: Incomplete: need additional imaging evaluation, BI-RAD 0 Management: Special View Mammogram of the left breast. Diagnostic Breast Ultrasound of the left breast. Additional views left breast and close spot 3-D CC, 3-D CC rolled, and 3-D LM views. Subsequent left breast ultrasound if any persistent abnormality.. [facility] will attempt to contact patient to return for supplemental views and ultrasound if indicated. Electronically signed and approved by: Theodore Cadet M.D. Radiologist
== END | disposition home or self-care (01) ==
LOC: RADMAMWWP 12:24
PROVIDERS: ATTEND Family Medicine
DX: Z12.31 Encounter for screening mammogram for malignant neoplasm of breast (principal); Z78.0 Asymptomatic menopausal state
CPT/HCPCS: 77063; 77067

== ENCOUNTER → 2023-10-17 | Outpatient (CLI) | payer MEDICARE ==
--- NOTE | 2023-10-17 14:58 | MM ---
Reason for Exam: Additional evaluation requested from abnormal screening. Last screening mammogram was performed less than 1 month ago. Patient History: Menarche at age 14. First Full-Term at age 21. Left ovary removed at age 38. Right ovary removed at age 38. Hysterectomy at age 38. Postmenopausal. Currently using Estrogen, beginning at age 39 for 13 years. Benign Excisional Biopsy on the left side. Benign Excisional Biopsy on the left side. Risk Values: Brielle 5 year model risk: 2.1%. NCI Lifetime model risk: 9.2%. Prior Study Comparison: 01/16/2017 Bilateral Screening Mammogram, [facility]. 05/12/2019 Bilateral Screening Mammogram, [facility]. 10/12/2023 Bilateral MG 3D screening mammo w/cad, [facility]. Tissue Density: Left: There are scattered fibroglandular densities. Findings: Analyzed By CAD. The central, inner asymmetric density on the CC view does not clearly persist on spot image. Given the appearance on screening exam, six-month follow-up recommended. Overall Assessment: Probably benign, BI-RAD 3 Management: Diagnostic Mammogram of the left breast in 6 months. No ultrasound needed at this time. Results were given to the patient verbally at the time of exam. Patient should continue monthly self-breast exams. A clinical breast exam by your physician is recommended on an annual basis. This exam should not preclude additional follow-up of suspicious palpable abnormalities. Note on Brielle scores and lifetime risk: 1. A Brielle score greater than 3% is considered moderate risk. If this is the case, consider specialist referral to assess eligibility for a risk reducing agent. 2. If overall lifetime risk for the development of breast cancer is 20% or higher, the patient may qualify for future screening with alternating mammogram and breast MRI. Electronically signed and approved by: Theodore Cadet M.D. Radiologist
== END | disposition home or self-care (01) ==
LOC: RADMAMWWP 14:34
PROVIDERS: ATTEND Family Medicine
DX: R92.322 Mammographic fibroglandular density, left breast (principal); Z78.0 Asymptomatic menopausal state
CPT/HCPCS: 77065; G0279; 77061

== ENCOUNTER → 2023-12-04 | Outpatient (CLI) | payer MEDICARE ==
--- NOTE | 2023-12-04 19:40 | US ---
EXAMINATION TYPE: US thyroid st tissue head/neck DATE OF EXAM: 12/04/2023 COMPARISON: NONE CLINICAL INDICATION: Female, 63 years old with history of R59.0 LOCALIZED ENLARGED LYMPH NODES; lump right neck GLAND SIZE: Right Lobe: 3.4 x 1.4 x 1.5 cm Overall Parenchyma: homogeneous Left Lobe: 4.0 x 1.4 x 1.1 cm Overall Parenchyma: homogeneous Isthmus Thickness: .5 cm NODULES RIGHT: # of nodules measured on right: 0 LEFT: # of nodules measured on left: 0 ISTHMUS: # of nodules measured in the isthmus: 0 Bilateral neck scanned, normal-appearing lymph nodes including hypoechoic area right neck 2.1 x .5 x 1.1 cm. Hypoechoic area left neck 1.3 x .4 x .8 cm. IMPRESSION: 1. No evidence for thyroid nodule. 2. Normal morphologic appearance of bilateral neck lymph nodes.
== END | disposition home or self-care (01) ==
LOC: RADUSWWP 14:32
PROVIDERS: ATTEND Family Medicine
DX: R59.0 Localized enlarged lymph nodes (principal)
CPT/HCPCS: 76536

== ENCOUNTER → 2023-12-05 | Outpatient (CLI) | payer MEDICARE ==
--- NOTE | 2023-12-05 14:17 | NM ---
EXAMINATION TYPE: NM bone scan whole body DATE OF EXAM: 12/05/2023 COMPARISON: NONE CLINICAL INDICATION: Female, 63 years old with history of M25.551 PAIN IN RIGHT HIP; Delayed whole-body scanning was performed following the injection of 24.0 mCi Tc 99m MDP. Images acq uired 5 hours post injection. FINDINGS: Photopenic defect suggests previous right hip replacement. Correlate clinically. Abnormal thickening involving the left knee, ankles, feet and shoulders and wrists likely post arthri tic. Scoliotic curvature of the spine with moderate nonspecific favor degenerative changes. Photopenic defect involving the right knee suggests knee replacements IMPRESSION: 1. Findings suggest right and knee replacement surgery correlate clinically. No recent plain films av ailable for comparison. If clinical concern for loosening or infection of the prostheses consider tri ple phase bone scan 2. Nonspecific uptake throughout the vertebral canal. Favor degenerative changes.
== END | disposition home or self-care (01) ==
LOC: RADNMMAIN 07:30
PROVIDERS: ATTEND Family Medicine
DX: M25.551 Pain in right hip (principal); R10.2 Pelvic and perineal pain
CPT/HCPCS: 78306; A9503

== ENCOUNTER → 2024-03-11 | Outpatient (CLI) | payer MEDICARE ==
--- NOTE | 2024-03-11 13:26 | XR ---
EXAMINATION TYPE: XR thoracic spine 3 views complete DATE OF EXAM: 03/11/2024 Comparison: CT chest 04/01/2023 Clinical History: 64-year-old female M54.9 Chronic back pain Findings: Subtle S-shaped curvature of the thoracal lumbar spine. Cholecystectomy clips. Accentuated mid to low er thoracic kyphosis. Moderate multilevel degenerative disc disease. Possible mild vertebral body hei ght loss of a lower thoracic vertebral body versus appearance due to the spinal curvature. There is a degenerative grade 1 anterolisthesis probably involving T12-L1 and L1-L2. Remaining vertebral body h eights are preserved. Impression: 1. Slight S-shaped curvature of the thoracolumbar spine. Moderate multilevel degenerative disc diseas e with accentuated mid to lower thoracic kyphosis. 2. Either mild vertebral body height loss of a lower thoracic vertebra versus appearance due to the s lynda curvature. If any focal pain, consider further cross sectional evaluation. 3. Two levels of degenerative grade 1 retrolisthesis visualized upper lumbar spine.
== END | disposition home or self-care (01) ==
LOC: RADXRMAIN 12:33
PROVIDERS: ATTEND Family Medicine
DX: M51.36 Other intervertebral disc degeneration, lumbar region (principal); M43.16 Spondylolisthesis, lumbar region
CPT/HCPCS: 72072

== ENCOUNTER → 2024-03-14 | Outpatient (CLI) | payer MEDICARE ==
[2024-03-14 15:22] LABS: Basophils # (A) 0.04 X 10*3/uL (0.00-0.10); Basophils % (A) 0.8 %; Eosinophils # (A) 0.09 X 10*3/uL (0.04-0.35); Eosinophils % (A) 1.8 %; HCT 38.5 % (37.2-46.3); HGB 12.8 g/dL (12.0-15.0); Lymphocytes # (A) 1.56 X 10*3/uL (0.90-5.00); Lymphocytes % (A) 30.8 %; MCH 27.9 pg (27.0-32.0); MCHC 33.2 g/dL (32.0-37.0); MCV 84.1 FL (80.0-97.0); Monocytes # (A) 0.51 X 10*3/uL (0.20-1.00); Monocytes % (A) 10.1 %; NRBC Per 100 WBC 0 X 10*3/uL (0.00-0.01); Neutrophils # (A) 2.84 X 10*3/uL (1.80-7.70); Neutrophils % (A) 56.1 %; Platelet Count 240 X 10*3/uL (140-440); RBC 4.58 X 10*6/uL (4.10-5.20); RDW 16.7 % (11.5-14.5); WBC 5.06 X 10*3/uL (4.50-10.00)
[2024-03-14 15:45] LABS: ALT 17 U/L (8-44); AST 22 U/L (13-35); Albumin 4.3 g/dL (3.8-4.9); Albumin/Globulin Ratio 1.79 Ratio (1.60-3.17); Alkaline Phosphatase 119 U/L (41-126); BUN/Creat Ratio 21.71 Ratio (12.00-20.00); Blood Urea Nitrogen 15.2 mg/dL (9.0-27.0); Calcium 9.3 mg/dL (8.7-10.3); Carbon Dioxide 21.2 mmol/L (21.6-31.8); Chloride 106 mmol/L (96-109); Globulin 2.4 g/dL (1.6-3.3); Glucose 88 mg/dL (70-110); Potassium 4.5 mmol/L (3.5-5.5); Sodium 139 mmol/L (135-145); Total Bilirubin <0.2 mg/dL (0.3-1.2); Total Protein 6.7 g/dL (6.2-8.2)
== END | disposition home or self-care (01) ==
LOC: LABWHC1 10:21
PROVIDERS: ATTEND Internal Medicine Gastroenterology
DX: K80.30 Calculus of bile duct with cholangitis, unspecified, without obstruction (principal)
CPT/HCPCS: 36415; 80053; 83516; 85025

== ENCOUNTER 2024-04-21 21:00 | Inpatient (IN) | payer MEDICARE ==
--- NOTE | 2024-04-21 21:47 | ED ---
Neuro HPI - General Chief Complaint: Neuro Symptoms/Deficit Stated Complaint: Slurred speech,Numbness mouth Source: patient, family, RN notes reviewed, old records reviewed Mode of arrival: ambulatory Limitations: no limitations - History of Present Illness Is the patient presenting with stroke symptoms?: Yes -: hour(s) Initial Comments: This is a 64-year-old female who presents today for evaluation, she states after lunchtime or so today patient began to have some right-sided facial numbness tingling may be in the left side drooling when she speaks states she is acting appropriately. Persisted throughout the day Location: speech, left face, right face, dysarthria Place: home Severity: mild Quality: weak, numb, tingling Improves With: none Worsens With: none Context: gradual onset Associated Symptoms: denies other symptoms, confusion Treatments Prior to Arrival: none - Related Data Home Medications: Home Medications Medication Instructions Recorded Confirmed DULoxetine HCL [Cymbalta] 60 mg PO BID 08/17/14 04/22/24 ALPRAZolam [Xanax] 0.5 mg PO BID PRN 05/18/19 04/22/24 Pregabalin [Lyrica] 150 mg PO HS 05/18/19 04/22/24 Butalb/Acetaminophen/Caffeine 1 - 2 tab PO Q6H PRN 11/18/21 04/22/24 [Fioricet 50-325-40] Pregabalin [Lyrica] 75 mg PO HS PRN 11/18/21 04/22/24 Clopidogrel Bisulfate [Plavix] 75 mg PO DAILY 04/14/22 04/22/24 Ketorolac 60mg/2ml Injection 60 mg INJ DAILY PRN 04/14/22 04/22/24 Ubrogepant [Ubrelvy] 100 mg PO DAILY PRN 04/14/22 04/22/24 Hyoscyamine Sulfate [Hyoscyamine 0.125 mg SL QID PRN 04/01/23 04/22/24 Sulfate SL] Ibuprofen [Motrin] 800 mg PO Q8H PRN 04/01/23 04/22/24 metFORMIN HCL ER [Glucophage XR] 500 mg PO W/SUPPER 04/01/23 04/22/24 Previous Rx's Medication Instructions Recorded Atorvastatin [Lipitor] 80 mg PO HS #30 tab 04/24/24 Famotidine [Pepcid] 20 mg PO DAILY #30 tab 04/24/24 predniSONE 60 mg PO DAILY 7 Days #14 tab 04/24/24 valACYclovir HCL [Valacyclovir] 1,000 mg PO BID 7 Days #14 tab 04/24/24 Allergies/Adverse Reactions: Allergies Allergy/AdvReac Type Severity Reaction Status Date / Time codeine Allergy Nausea & Verified 04/22/24 07:31 Vomiting prochlorperazine Allergy Unknown Verified 04/22/24 07:31 [From Compazine] Sulfa (Sulfonamide Allergy Rash/Hives Verified 04/22/24 07:31 Antibiotics) Review of Systems ROS Statement: Those systems with pertinent positive or pertinent negative responses have been documented in the HPI. ROS Other: All systems not noted in ROS Statement are negative. General Exam Limitations: no limitations General appearance: alert, in no apparent distress Head exam: Present: atraumatic, normocephalic, normal inspection Eye exam: Present: normal appearance, PERRL, EOMI. Absent: scleral icterus, conjunctival injection, periorbital swelling ENT exam: Present: normal exam, mucous membranes moist Neck exam: Present: normal inspection. Absent: tenderness, meningismus, lymphadenopathy Respiratory exam: Present: normal lung sounds bilaterally. Absent: respiratory distress, wheezes, rales, rhonchi, stridor Cardiovascular Exam: Present: regular rate, normal rhythm, normal heart sounds. Absent: systolic murmur, diastolic murmur, rubs, gallop, clicks GI/Abdominal exam: Present: soft, normal bowel sounds. Absent: distended, tenderness, guarding, rebound, rigid Extremities exam: Present: normal inspection, full ROM, normal capillary refill. Absent: tenderness, pedal edema, joint swelling, calf tenderness Back exam: Present: normal inspection Neurological exam: Present: alert, oriented X3, CN II-XII intact Psychiatric exam: Present: normal affect, normal mood Skin exam: Present: warm, dry, intact, normal color. Absent: rash Stroke MDM - Lab Data Result diagrams: 04/21/24 21:55 04/21/24 21:55 Lab Results 04/21/24 04/21/24 04/21/24 Range/Units 21:55 21:55 21:55 WBC 5.5 (3.8-10.6) k/uL RBC 4.39 (3.80-5.40) m/uL Hgb 12.7 (11.4-16.0) gm/dL Hct 38.4 (34.0-46.0) % MCV 87.5 (80.0-100.0) fL MCH 29.0 (25.0-35.0) pg MCHC 33.2 (31.0-37.0) g/dL RDW 14.1 (11.5-15.5) % Plt Count 248 (150-450) k/uL MPV 7.0 Neutrophils % 55 % Lymphocytes % 36 % Monocytes % 6 % Eosinophils % 1 % Basophils % 1 % Neutrophils # 3.1 (1.3-7.7) k/uL Lymphocytes # 2.0 (1.0-4.8) k/uL Monocytes # 0.3 (0-1.0) k/uL Eosinophils # 0.1 (0-0.7) k/uL Basophils # 0.0 (0-0.2) k/uL PT 10.9 (10.0-12.5) sec INR 1.0 (<1.2) APTT 27.4 (22.0-30.0) sec Sodium 136 L (137-145) mmol/L Potassium 4.2 (3.5-5.1) mmol/L Chloride 105 (98-107) mmol/L Carbon Dioxide 25 (22-30) mmol/L Anion Gap 6 mmol/L BUN 13 (7-17) mg/dL Creatinine 0.91 (0.52-1.04) mg/dL Est GFR (CKD-EPI)AfAm 78 (>60 ml/min/1.73 sqM) Est GFR (CKD-EPI)NonAf 67 (>60 ml/min/1.73 sqM) Glucose 83 (74-99) mg/dL Calcium 9.2 (8.4-10.2) mg/dL Total Bilirubin 0.6 (0.2-1.3) mg/dL AST 23 (14-36) U/L ALT 12 (4-34) U/L Alkaline Phosphatase 95 (38-126) U/L Creatine Kinase 80 (30-135) U/L Troponin I (0.000-0.034) ng/mL Total Protein 6.8 (6.3-8.2) g/dL Albumin 4.2 (3.5-5.0) g/dL Serum Alcohol <10 mg/dL 04/21/24 Range/Units 21:55 WBC (3.8-10.6) k/uL RBC (3.80-5.40) m/uL Hgb (11.4-16.0) gm/dL Hct (34.0-46.0) % MCV (80.0-100.0) fL MCH (25.0-35.0) pg MCHC (31.0-37.0) g/dL RDW (11.5-15.5) % Plt Count (150-450) k/uL MPV Neutrophils % % Lymphocytes % % Monocytes % % Eosinophils % % Basophils % % Neutrophils # (1.3-7.7) k/uL Lymphocytes # (1.0-4.8) k/uL Monocytes # (0-1.0) k/uL Eosinophils # (0-0.7) k/uL Basophils # (0-0.2) k/uL PT (10.0-12.5) sec INR (<1.2) APTT (22.0-30.0) sec Sodium (137-145) mmol/L Potassium (3.5-5.1) mmol/L Chloride (98-107) mmol/L Carbon Dioxide (22-30) mmol/L Anion Gap mmol/L BUN (7-17) mg/dL Creatinine (0.52-1.04) mg/dL Est GFR (CKD-EPI)AfAm (>60 ml/min/1.73 sqM) Est GFR (CKD-EPI)NonAf (>60 ml/min/1.73 sqM) Glucose (74-99) mg/dL Calcium (8.4-10.2) mg/dL Total Bilirubin (0.2-1.3) mg/dL AST (14-36) U/L ALT (4-34) U/L Alkaline Phosphatase (38-126) U/L Creatine Kinase (30-135) U/L Troponin I <0.012 (0.000-0.034) ng/mL Total Protein (6.3-8.2) g/dL Albumin (3.5-5.0) g/dL Serum Alcohol mg/dL - NIH Stroke Scale 1a. Level of Consciousness: (0) alert 1b. LOC Questions: (0) answers correctly 1c. LOC Commands: (0) performs tasks correctly 2. Best Gaze: (0) normal 3. Visual: (0) no visual loss 4. Facial Palsy: (0) normal symmetrical movement 5a. Motor Arm Left: (0) no drift 5b. Motor Arm Right: (0) no drift 6a. Motor Leg Left: (0) no drift 6b. Motor Leg Right: (0) no drift 7. Limb Ataxia: (0) absent 8. Sensory: (0) normal 9. Best Language: (1) mild/moderate aphasia 10. Dysarthria: (1) mild/moderate dysarthria 11. Extinction/Inattention: (0) no abnormality - Thrombolytic Inclusion/Exclusion Thrombolytic Exclusion Criteria: Symptom Onset > 4.5 Hours - Medical Decision Making 64 female will be admitted for CVA - Radiology Data Radiology results: report reviewed (CT brain shows possible lacunar infarct CT angio negative for acute disease), image reviewed - EKG Data -: EKG Interpreted by Me (EKG is sinus 94 HI 159 QRS 89 QTc 386) Past Medical History Past Medical History: CVA/TIA, GERD/Reflux, Hyperlipidemia, Hypertension, Thyroid Disorder Additional Past Medical History / Comment(s): migraines daily, TIA x 3-no residual effects, episodic biliary colic as a result from choledocholithiasis with gravel on previous ERCP, hx anemia, History of Any Multi-Drug Resistant Organisms: None Reported Past Surgical History: Section, Cholecystectomy, Hysterectomy, Joint Replacement, Orthopedic Surgery Additional Past Surgical History / Comment(s): thorasic outlet surgery, right shoulder surgery, ERCP, . right hip replacement x 4, rt knee replacement , bunionectomy rt foot x2, Past Anesthesia/Blood Transfusion Reactions: Motion Sickness Past Psychological History: Anxiety Smoking Status: Never smoker - Past Family History Father Family Medical History: Cancer Additional Family Medical History / Comment(s): throat and skin Mother Family Medical History: Cancer Additional Family Medical History / Comment(s): skin Course Vital Signs 04/21/24 04/21/24 04/21/24 21:04 21:16 22:17 Temperature 98.3 F Pulse Rate 102 H 100 89 Respiratory 18 18 18 Rate Blood Pressure 121/78 109/74 119/72 O2 Sat by Pulse 99 97 96 Oximetry 04/21/24 04/21/24 04/22/24 22:30 23:00 00:00 Temperature Pulse Rate 86 76 Respiratory 19 15 51 H Rate Blood Pressure 132/75 137/73 129/79 O2 Sat by Pulse 98 99 98 Oximetry 04/22/24 04/22/24 04/22/24 00:36 01:00 03:30 Temperature Pulse Rate 85 73 Respiratory 17 40 H 12 Rate Blood Pressure 120/65 128/73 O2 Sat by Pulse 96 93 L 95 Oximetry 04/22/24 04/22/24 04/22/24 05:31 12:30 14:00 Temperature 98.2 F Pulse Rate 81 87 94 Respiratory 16 18 17 Rate Blood Pressure 121/79 119/87 119/87 O2 Sat by Pulse 96 99 Oximetry 04/22/24 04/22/24 04/22/24 15:30 16:00 17:13 Temperature 98.9 F Pulse Rate 118 H 97 95 Respiratory 18 20 17 Rate Blood Pressure 131/91 123/74 O2 Sat by Pulse 96 98 Oximetry - Reevaluation(s) Reevaluation #1: 04/21/24 22:41 Records reviewed Reevaluation #2: 04/21/24 22:41 Symptoms unchanged Reevaluation #3: 04/21/24 22:41 Monitor results and questions answered Reevaluation #4: Was pt. sent in by a medical professional or institution (, PA, LATCHER, urgent c are, hospital, or retirement...) When possible be specific @ -no Did you speak to anyone other than the patient for history (EMS, parent, family, police, friend...)? What history was obtained from this source @ -no Did you review nursing and triage notes (agree or disagree)? Why? @ -agree Are old charts reviewed (outside hosp., previous admission, EMS record, old EKG, old radiological studies, urgent care reports/EKG's, retirement records)? Report findings @ -yes Differential Diagnosis (chest pain, altered mental status, abdominal pain women, abdominal pain men, vaginal bleeding, weakness, fever, dyspnea, syncope, headache, dizziness, GI bleed, back pain, seizure, CVA, palpatations, mental health, musculoskeletal)? @ -prior EKG interpreted by me (3pts min.). @ -yes X-rays interpreted by me (1pt min.). @ -no CT interpreted by me (1pt min.). @ -yes negative for acute disease U/S interpreted by me (1pt. min.). @ -no What testing was considered but not performed or refused? (CT, X-rays, U/S, labs)? Why? @ -none What meds were considered but not given or refused? Why? @ -none Did you discuss the management of the patient with other professionals (professionals i.e. DrMorteza, PA, LATCHER, lab, RT, psych nurse, social sciences department chair, financial risk manager, teacher, property disposal officer, mental health case manager)? Give summary @ -no Was smoking cessation discussed for >3mins.? @ -no Was critical care preformed (if so, how long)? @ -yes31 Were there social determinants of health that impacted care today? How? (H omelessness, low income, unemployed, alcoholism, drug addiction, transportation, low edu. Level, literacy, decrease access to med. care, fpc, rehab)? @ -none Was there de-escalation of care discussed even if they declined (Discuss DNR or withdrawal of care, Hospice)? DNR status @ -no What co-morbidities impacted this encounter? (DM, HTN, Smoking, COPD, CAD, Cancer, CVA, ARF, Chemo, Hep., AIDS, mental health diagnosis, sleep apnea, morbid obesity)? @ -none Was patient admitted / discharged? Hospital course, mention meds given and route, prescriptions, significant lab abnormalities, going to OR and other pertinent info. @ - 64 female will be admitted for CVA Admitted Undiagnosed new problem with uncertain prognosis? @ -no Drug Therapy requiring intensive monitoring for toxicity (Heparin, Nitro, Insulin, Cardizem)? @ -no Were any procedures done? @ -no Diagnosis/symptom? @ -CVA Acute, or Chronic, or Acute on Chronic? @ -Acute Uncomplicated (without systemic symptoms) or Complicated (systemic symptoms)? @ -Complicated Side effects of treatment? @ -no Exacerbation, Progression, or Severe Exacerbation? @ -exacerbation Poses a threat to life or bodily function? How? (Chest pain, [place], [place], pneumonia, PE, COPD, DKA, ARF, appy, cholecystitis, CVA, Diverticulitis, Homicidal, Klaudia cidal, threat to staff... and all critical care pts) @ -yes CVA Reevaluation #5: Differential CVA Ischemic stroke, hemorrhagic stroke, brain tumor, atypical migraine, Wernicke's encephalopathy, seizure, multiple sclerosis, meningitis, encephalitis, hypoglycemia, Guillain-Sutton, electrolytes disturbance, myasthenia gravis.... This is not meant to be an all-inclusive list - Consultations Consultation #1: spoke with [facility] Who agrees to admit this patient Critical Care Time Critical Care Time: Yes Total Critical Care Time: 31 Disposition Clinical Impression: Cerebrovascular accident (CVA), Weakness Disposition: ADMITTED IP TO THIS HOSP Condition: Fair Is patient prescribed a controlled substance at d/c from ED?: No Time of Disposition: 00:30
[2024-04-21] MEDS: SODIUM CHLORIDE 0.9% 1,000 ML IV STA (22:19)
[2024-04-21 22:43] LABS: Basophils % (A) 1 %; Eosinophils # (A) 0.1 k/uL (0-0.7); Eosinophils % (A) 1 %; HCT 38.4 % (34.0-46.0); HGB 12.7 gm/dL (11.4-16.0); Lymphocytes % (A) 36 %; MCHC 33.2 g/dL (31.0-37.0); MCV 87.5 fL (80.0-100.0); Monocytes # (A) 0.3 k/uL (0-1.0); Monocytes % (A) 6 %; Neutrophils # (A) 3.1 k/uL (1.3-7.7); Neutrophils % (A) 55 %; Platelet Count 248 k/uL (150-450); RBC 4.39 m/uL (3.80-5.40); RDW 14.1 % (11.5-15.5); WBC 5.5 k/uL (3.8-10.6)
[2024-04-21 22:51] LABS: Partial Thromboplastin Time 27.4 sec (22.0-30.0); Prothrombin Time 10.9 sec (10.0-12.5)
[2024-04-21 23:00] LABS: ALT 12 U/L (4-34); AST 23 U/L (14-36); African American GFR (CKD) 78 (>60 ml/min/1.73 sqM); Albumin 4.2 g/dL (3.5-5.0); Alcohol <10 mg/dL; Alkaline Phosphatase 95 U/L (38-126); Anion Gap 6 mmol/L; Blood Urea Nitrogen 13 mg/dL (7-17); Calcium 9.2 mg/dL (8.4-10.2); Carbon Dioxide 25 mmol/L (22-30); Chloride 105 mmol/L (98-107); Creatine Kinase 80 U/L (30-135); Glucose 83 mg/dL (74-99); Non-African American GFR(CKD) 67 (>60 ml/min/1.73 sqM); Potassium 4.2 mmol/L (3.5-5.1); Sodium 136 mmol/L (137-145); Total Bilirubin 0.6 mg/dL (0.2-1.3); Total Protein 6.8 g/dL (6.3-8.2)
--- NOTE | 2024-04-22 00:09 | CT ---
EXAM: CT Head Without Intravenous Contrast CLINICAL HISTORY: CT Reason: Neuro deficit, acute, stroke suspected TECHNIQUE: Axial computed tomography images of the head/brain without intravenous contrast. CTDI is 48.9 mGy and DLP is 1118.8 mGy-cm. This CT exam was performed using one or more of the following dose reduction techniques: automated exposure control, adjustment of the mA and/or kV according to patient size, and/or use of iterative reconstruction technique. COMPARISON: April 01, 2023 FINDINGS: Brain: Mild cerebral atrophy. There is a subtle possible 1 cm low- density in the inferior aspect of the right basal ganglia which could represent a small vessel infarct, age unknown. The brain is otherwise unremarkable. No acute large vessel infarct or intracranial hemorrhage is seen. Ventricles: Unremarkable. No ventriculomegaly. Bones/joints: Unremarkable. No acute fracture. Soft tissues: Unremarkable. Sinuses: Unremarkable as visualized. No acute sinusitis. Mastoid air cells: Unremarkable as visualized. No mastoid effusion. IMPRESSION: Mild cerebral atrophy. There is a subtle possible 1 cm low-density in the inferior aspect of the right basal ganglia which could represent a small vessel infarct, age unknown. The brain is otherwise unremarkable. No acute large vessel infarct or intracranial hemorrhage is seen. <MYCVCSECTION> Communications: 04/22/24 00:19 Call Doctor Regarding Above results, called Dr. Torres on 04/22 00:18 (-04:00)
--- NOTE | 2024-04-22 00:14 | CT ---
EXAM: CT Angiography Head With Intravenous Contrast CLINICAL HISTORY: CT Reason: Neuro deficit, acute, stroke suspected TECHNIQUE: Axial computed tomographic angiography images of the head with intravenous contrast. CTDI is 11.9 mGy and DLP is 147.1 mGy-cm. This CT exam was performed using one or more of the following dose reduction techniques: automated exposure control, adjustment of the mA and/or kV according to patient size, and/or use of iterative reconstruction technique. MIP reconstructed images were created and reviewed. COMPARISON: No relevant prior studies available. FINDINGS: Right internal carotid artery: Trace amount of calcified plaque in the distal right internal carotid artery without measurable stenosis. No aneurysm. Right anterior cerebral artery: Unremarkable. No occlusion or significant stenosis. No aneurysm. Right middle cerebral artery: Unremarkable. No occlusion or significant stenosis. No aneurysm. Right posterior cerebral artery: Unremarkable. No occlusion or significant stenosis. No aneurysm. Right vertebral artery: See below. Left internal carotid artery: Trace amount of calcified plaque in the distal left internal carotid artery without measurable stenosis. No aneurysm. Left anterior cerebral artery: Unremarkable. No occlusion or significant stenosis. No aneurysm. Left middle cerebral artery: Unremarkable. No occlusion or significant stenosis. No aneurysm. Left posterior cerebral artery: Unremarkable. No occlusion or significant stenosis. No aneurysm. Left vertebral artery: Unremarkable as visualized. Basilar artery: Unremarkable. No occlusion or significant stenosis. No aneurysm. Other vasculature: There is a prominent right PICA and the distal right vertebral artery is somewhat small but patent. This is a normal variant. IMPRESSION: No acute findings in the arteries of the head/brain. EXAM: CT Angiography Neck With Intravenous Contrast CLINICAL HISTORY: CT Reason: Neuro deficit, acute, stroke suspected TECHNIQUE: Routine carotid CT angiography protocol was performed with intravenous contrast. NASCET criteria using the distal ICAs for comparison were used for evaluation of stenoses. CTDI is 11.9 mGy and DLP is 147.1 mGy-cm. This CT exam was performed using one or more of the following dose reduction techniques: automated exposure control, adjustment of the mA and/or kV according to patient size, and/or use of iterative reconstruction technique. MIP reconstructed images were created and reviewed. COMPARISON: None. FINDINGS: VASCULATURE: Right common carotid artery: Unremarkable. No occlusion or significant stenosis. No dissection. Right internal carotid artery: Unremarkable. Extracranial segment is patent with no occlusion or significant stenosis. No dissection. Right external carotid artery: Unremarkable. No occlusion. Right vertebral artery: Unremarkable. No occlusion or significant stenosis. No dissection. Left common carotid artery: Unremarkable. No occlusion or significant stenosis. No dissection. Left internal carotid artery: Unremarkable. Extracranial segment is patent with no occlusion or significant stenosis. No dissection. Left external carotid artery: Unremarkable. No occlusion. Left vertebral artery: Unremarkable. No occlusion or significant stenosis. No dissection. NECK: Bones/joints: Mild degenerative changes throughout the cervical spine. No acute fracture or subluxation is seen. Soft tissues: Unremarkable. Lung apices: Clear. CAROTID STENOSIS REFERENCE USING NASCET CRITERIA: % ICA stenosis = (1 - narrowest ICA diameter/diameter of distal cervical ICA) x 100. Mild - <50% stenosis. Moderate - 50-69% stenosis. Severe - 70-94% stenosis. Near occlusion - 95-99% stenosis. Occluded - 100% stenosis. IMPRESSION: No acute findings in the arteries of the neck.
[2024-04-22] MEDS: ASPIRIN 325 MG TAB PO STA (01:24)
[2024-04-22] MEDS: MAG HYDROX/AL HYDROX/SIMETH 30 ML CUP PO ONE (02:28)
[2024-04-22] MEDS ORDERED: PREGABALIN 75 MG CAP PO PRN (10:00)
[2024-04-22] MEDS ORDERED: DEXTROSE 50% SYRINGE 50 ML IVP PRN ×2 (10:01)
[2024-04-22] MEDS: CLOPIDOGREL 75 MG TAB PO SCH (12:04)
[2024-04-22 13:55] LABS: Glucose,Whole Blood 99 mg/dL (70-110)
[2024-04-22] MEDS: INSULIN ASPART (NovoLOG) 100 UNIT/ML VIAL SQ SCH (14:16)
--- NOTE | 2024-04-22 15:29 | P.CNNES ---
History of Present Illness Consult date: 04/22/24 Requesting physician: Amado Torres Reason for Consult: known History of Present Illness: This is a 64-year-old woman with history of migraine, multiple TIAs in the past who presents emergency department because of dizziness, facial heaviness. Patient is accompanied with her who is at bedside. She stated that for the past few days she has been feeling dizzy but has had a hard time describing her event. Then seems that yesterday she woke up around 10 AM and she noticed her right side of the face is heavy and her last normal state was 10 PM night prior. But then when her grand child seen the patient she was notified that she is blinking more on the right eye compared to left and had more weakness on the left. She also felt when she was eating or drinking she was drooling on the right side. She felt her whole body was shaking inside but denies losing consciousness. Denies any urinary or bowel incontinence or tongue bite. States she does not have any headache. But yesterday she had a headache over the left occipital was 5 out of 10 throbbing she had some photo phobia but no phonophob ia. Denies any nausea or vomiting and it lasted for few hours and resolved. She denies any history of stroke. Was evaluated by neurologist over in [place] in the past as well as Dr. Plata and she stated that she had an EEG by Dr. Milan was normal. Patient is on Cymbalta, Lyrica, Plavix, Ubrelvy. Does have underlying history of migraine. 2021 she was evaluated by her team and this was felt possibly she had migraine. Her ESR and CRP were normal. We cannot rule out TIA versus functional. Refer to our notes for further details. Some of the workup during this hospital visit consisted of: I reviewed the lab workup Serum alcohol is less than 10 CT of the head is reported as mild cerebral atrophy. There is subtotal possible 1 cm low-density in the inferior aspect of the right basal ganglia which could represent a small vessel infarct, age unknown. Otherwise the brain is otherwise unremarkable. Personally reviewed CT of the head regarding the hypodensity in the right basal ganglia I did see there is a hypodensity but again I agree of indeterminate age. Angiography of the head and neck was reported as no acute finding in the arteries of the neck or the head. Review of Systems The positive and negative as per HPI. Past Medical History Past Medical History: CVA/TIA, GERD/Reflux, Hyperlipidemia, Hypertension, Thyroid Disorder Additional Past Medical History / Comment(s): migraines daily, TIA x 3-no residual effects, episodic biliary colic as a result from choledocholithiasis w ith gravel on previous ERCP, hx anemia, History of Any Multi-Drug Resistant Organisms: None Reported Past Surgical History: Section, Cholecystectomy, Hysterectomy, Joint Replacement, Orthopedic Surgery Additional Past Surgical History / Comment(s): thorasic outlet surgery, right shoulder surgery, ERCP, . right hip replacement x 4, rt knee replacement , bunionectomy rt foot x2, Past Anesthesia/Blood Transfusion Reactions: Motion Sickness Past Psychological History: Anxiety Smoking Status: Never smoker - Past Family History Father Family Medical History: Cancer Additional Family Medical History / Comment(s): throat and skin Mother Family Medical History: Cancer Additional Family Medical History / Comment(s): skin Medications and Allergies Home Medications Medication Instructions Recorded Confirmed Type DULoxetine HCL [Cymbalta] 60 mg PO BID 08/17/14 04/22/24 History ALPRAZolam [Xanax] 0.5 mg PO BID PRN 05/18/19 04/22/24 History Pregabalin [Lyrica] 150 mg PO HS 05/18/19 04/22/24 History Butalb/Acetaminophen/Caffeine 1 - 2 tab PO Q6H PRN 11/18/21 04/22/24 History [Fioricet 50-325-40] Pregabalin [Lyrica] 75 mg PO HS PRN 11/18/21 04/22/24 History amLODIPine [Norvasc] 5 mg PO HS 11/18/21 04/22/24 History Clopidogrel Bisulfate [Plavix] 75 mg PO DAILY 04/14/22 04/22/24 History Ketorolac 60mg/2ml Injection 60 mg INJ DAILY PRN 04/14/22 04/22/24 History Ubrogepant [Ubrelvy] 100 mg PO DAILY PRN 04/14/22 04/22/24 History Hyoscyamine Sulfate [Hyoscyamine 0.125 mg SL QID PRN 04/01/23 04/22/24 History Sulfate SL] Ibuprofen [Motrin] 800 mg PO Q8H PRN 04/01/23 04/22/24 History metFORMIN HCL ER [Glucophage XR] 500 mg PO W/SUPPER 04/01/23 04/22/24 History niMODipine [Nimotop] 30 mg PO DAILY 04/01/23 04/22/24 History Allergies Allergy/AdvReac Type Severity Reaction Status Date / Time codeine Allergy Nausea & Verified 04/22/24 07:31 Vomiting prochlorperazine Allergy Unknown Verified 04/22/24 07:31 [From Compazine] Sulfa (Sulfonamide Allergy Rash/Hives Verified 04/22/24 07:31 Antibiotics) Physical Examination - Vital Signs Vital Signs: Vital Signs Temp Pulse Resp BP Pulse Ox 04/22/24 12:30 98.2 F 87 18 119/87 99 04/22/24 05:31 81 16 121/79 96 04/22/24 03:30 73 12 128/73 95 04/22/24 01:00 40 H 120/65 93 L 04/22/24 00:36 85 17 96 04/22/24 00:00 51 H 129/79 98 04/21/24 23:00 76 15 137/73 99 04/21/24 22:30 86 19 132/75 98 04/21/24 22:17 89 18 119/72 96 04/21/24 21:16 100 18 109/74 97 04/21/24 21:04 98.3 F 102 H 18 121/78 99 GENERAL: The patient is lying in bed and is not in acute distress. NEUROLOGICAL: Higher mental function: The patient is awake, alert, oriented to self, place and time. Patient is following commands. No aphasia and no neglect. Cranial nerves: The pupils are round, equal and reactive to light and accommodation. Visual nelson are full to confrontation throughout. Extraocular movement is intact no nystagmus is noted. Facial sensation is normal to touch throughout. Has left lower facial weakness and was able to open her eyes easily with resitance. Has decrease blinks on the left compared to right. Hearing is normal bilaterally to hand rub. Tongue is midline and moved [id number] without any difficulty. No dysarthria is noted. Shoulder shrug is normal bilaterally. Motor: The strength is 5 over 5 throughout. Normal tone and bulk. Cerebellum: Normal finger to nose heel to chin bilaterally. Sensation: Sensation is normal to touch throughout. Reflexes (right/left): 2+ throughout. Plantars are downgoing bilaterally. Results - Laboratory Findings CBC and BMP: 04/21/24 21:55 04/21/24 21:55 Abnormal Lab Findings: Abnormal Labs 04/21/24 21:55 Sodium 136 L Assessment and Plan Assessment: This is a 64-year-old woman who presents because of dizziness for the past few days and then yesterday she woke up noticing that her right face was heavy but in reality it turns that she was notified by her grandchild she is blinking less on the left eye and on examination she had left facial weakness. Acute left facial weakness with dizziness rule out stroke. CT of the head shows hypodensity in the right basal ganglia concern for stroke of indeterminate age. History of complicated migraine History of multiple TIAs Plan: MRI of the brain without is ordered and is pending I also ordered a routine EEG since the patient felt she had some inner body shaking rule out seizure or discharges I ordered TSH, ammonia and vitamin B12 Started on aspirin 325 mg daily by the ED team. She is on Plavix 75 mg daily at home. She was started on Lipitor 80 mg nightly for secondary prophylaxis by the ED physician. 2D echo, lipid panel was ordered and is pending Continue neurochecks Cardiac monitoring PT OT and E COMMERCE MANAGER are consulted Defer the rest of the medical management to primary and other specialist DVT prophylaxis start the patient on subcu heparin 5000 every 12 hour The plan is discussed with patient and her who is at bedside. Thank you for the consultation. Time with Patient: Greater than 30
[2024-04-22] MEDS ORDERED: NON FORMULARY DRUG (Ubrogepant [Ubrelvy] 100 MG Tablet) PO PRN (15:35)
--- NOTE | 2024-04-22 15:37 | P.HPIM ---
History of Present Illness H&P Date: 04/22/24 This is a pleasant 64-year-old female with medical history significant for TIA x 3, hyperlipidemia, gastroesophageal reflux disease, hypertension. Patient presents to the hospital with complaints of left-sided facial droop unable to close her left eye as well as drooling out of the right side of her mouth. Patient's family was concerned for stroke and brought her in for further evaluation. She is not having any focal deficits with equal strength in the upper and lower extremities no ataxia has been noted on examination. Patient does have a left facial droop noted. Patient had a brain CT that does show a small area in the right basal ganglia concerning for an infarct her CT angiography does not reveal any significant stenosis. She was admitted to the hospital with a consult placed to neurology. Noted that patient is already maintained on Plavix outpatient for her history of TIA. This has been resumed at this time. Patient will undergo a full stroke workup echocardiogram and EEG are ordered and pending as well as a brain MRI. Patient will need to be evaluated also by speech therapy. This was all discussed with family at the bedside and they have no further questions at this time. REVIEW OF SYSTEMS: CONSTITUTIONAL: No fever, no malaise, no fatigue. HEENT: No recent visual problems or hearing problems. Denied any sore throat. CARDIOVASCULAR: No chest pain, orthopnea, PND, no palpitations, no syncope. PULMONARY: No shortness of breath, no cough, no hemoptysis. GASTROINTESTINAL: No diarrhea, no nausea, no vomiting, no abdominal pain. NEUROLOGICAL: No headaches, no weakness, no numbness. Fourth left-sided facial droop. HEMATOLOGICAL: Denies any bleeding or petechiae. GENITOURINARY: Denies any burning micturition, frequency, or urgency. MUSCULOSKELETAL/RHEUMATOLOGICAL: Denies any joint pain, swelling, or any muscle pain. ENDOCRINE: Denies any polyuria or polydipsia. The rest of the 14-point review of systems is negative. PHYSICAL EXAMINATION: GENERAL: The patient is alert and oriented x3, not in any acute distress. Well developed, well nourished. HEENT: Pupils are round and equally reacting to light. EOMI. No scleral icterus. No conjunctival pallor. Normocephalic, atraumatic. No pharyngeal erythema. No thyromegaly. CARDIOVASCULAR: S1 and S2 present. No murmurs, rubs, or gallops. PULMONARY: Chest is clear to auscultation, no wheezing or crackles. ABDOMEN: Soft, nontender, nondistended, normoactive bowel sounds. No palpable organomegaly. MUSCULOSKELETAL: No joint swelling or deformity. EXTREMITIES: No cyanosis, clubbing, or pedal edema. NEUROLOGICAL: Gross neurological examination did not reveal any focal deficits. Strength 5 out of 5 upper and lower extremities bilaterally patient does have a left facial droop SKIN: No rashes. Assessment Acute stroke right basal ganglia patient has noted left sided facial droop, has been experiencing palpitations and increasing anxiety over the last few days Hyperlipidemia Hypertension, currently normotensive Hypothyroidism Hx of migraines Prior loop recorder was removed due to conflict with therapies she was receiving for chronic neck pain Hx of TIA x 3 in the past with no residuals. Diabetes Mellitus type 2 Anxiety GI prophylaxis DVT prophylaxis Plan Neurology consultation in place Echocardiogram, EEG, brain MRI have been ordered as part of full stroke work up. Pending hgb A1C; hold metformin and recommend accuchecks ACHS and sliding scale insulin Artifical tears ordered for the left eye and recommend to patch if needed for rest of the eye as patient has not been blinking her eye. Resume fioricet and ok for patient to take her ubrelvy from home for migraine if needed. Continue frequent neuro checks PT/OT and speech therapy have been consulted. Patient will need to discharge on combination of aspirin and plavix or change plavix to a different drug such as brilinta for stroke prevention. The impression and plan of care has been dictated by Damari Abad, Nurse Practitioner as directed. Dr. Lisset MD I have performed a history and physical examination and medical decision making of this patient, discussed the same with the dictator, and agree with the dictators assessment and plan as written, documented as a scribe. Based on total visit time, I have performed more than 50% of this visit. Past Medical History Past Medical History: CVA/TIA, GERD/Reflux, Hyperlipidemia, Hypertension, Thyroid Disorder Additional Past Medical History / Comment(s): migraines daily, TIA x 3-no resi dual effects, episodic biliary colic as a result from choledocholithiasis with gravel on previous ERCP, hx anemia, History of Any Multi-Drug Resistant Organisms: None Reported Past Surgical History: Section, Cholecystectomy, Hysterectomy, Joint Replacement, Orthopedic Surgery Additional Past Surgical History / Comment(s): thorasic outlet surgery, right shoulder surgery, ERCP, . right hip replacement x 4, rt knee replacement , bunionectomy rt foot x2, Past Anesthesia/Blood Transfusion Reactions: Motion Sickness Past Psychological History: Anxiety Smoking Status: Never smoker - Past Family History Father Family Medical History: Cancer Additional Family Medical History / Comment(s): throat and skin Mother Family Medical History: Cancer Additional Family Medical History / Comment(s): skin Medications and Allergies Home Medications Medication Instructions Recorded Confirmed Type DULoxetine HCL [Cymbalta] 60 mg PO BID 08/17/14 04/22/24 History ALPRAZolam [Xanax] 0.5 mg PO BID PRN 05/18/19 04/22/24 History Pregabalin [Lyrica] 150 mg PO HS 05/18/19 04/22/24 History Butalb/Acetaminophen/Caffeine 1 - 2 tab PO Q6H PRN 11/18/21 04/22/24 History [Fioricet 50-325-40] Pregabalin [Lyrica] 75 mg PO HS PRN 11/18/21 04/22/24 History amLODIPine [Norvasc] 5 mg PO HS 11/18/21 04/22/24 History Clopidogrel Bisulfate [Plavix] 75 mg PO DAILY 04/14/22 04/22/24 History Ketorolac 60mg/2ml Injection 60 mg INJ DAILY PRN 04/14/22 04/22/24 History Ubrogepant [Ubrelvy] 100 mg PO DAILY PRN 04/14/22 04/22/24 History Hyoscyamine Sulfate [Hyoscyamine 0.125 mg SL QID PRN 04/01/23 04/22/24 History Sulfate SL] Ibuprofen [Motrin] 800 mg PO Q8H PRN 04/01/23 04/22/24 History metFORMIN HCL ER [Glucophage XR] 500 mg PO W/SUPPER 04/01/23 04/22/24 History niMODipine [Nimotop] 30 mg PO DAILY 04/01/23 04/22/24 History Allergies Allergy/AdvReac Type Severity Reaction Status Date / Time codeine Allergy Nausea & Verified 04/22/24 07:31 Vomiting prochlorperazine Allergy Unknown Verified 04/22/24 07:31 [From Compazine] Sulfa (Sulfonamide Allergy Rash/Hives Verified 04/22/24 07:31 Antibiotics) Physical Exam Vitals: Vital Signs Temp Pulse Resp BP Pulse Ox 04/22/24 05:31 81 16 121/79 96 04/22/24 03:30 73 12 128/73 95 04/22/24 01:00 40 H 120/65 93 L 04/22/24 00:36 85 17 96 04/22/24 00:00 51 H 129/79 98 04/21/24 23:00 76 15 137/73 99 04/21/24 22:30 86 19 132/75 98 04/21/24 22:17 89 18 119/72 96 04/21/24 21:16 100 18 109/74 97 04/21/24 21:04 98.3 F 102 H 18 121/78 99 Intake and Output 04/21/24 04/22/24 04/22/24 22:59 06:59 14:59 Other: Weight 52.163 kg Results CBC & Chem 7: 04/21/24 21:55 04/21/24 21:55 Labs: Abnormal Lab Results - Last 24 Hours (Table) 04/21/24 Range/Units 21:55 Sodium 136 L (137-145) mmol/L Assessment and Plan Time with Patient: Greater than 30
[2024-04-22 17:43] LABS: Glucose,Whole Blood 87 mg/dL (70-110)
[2024-04-22] MEDS: BUTALB/APAP/CAFF 50-325-40MG TAB PO PRN (18:03)
[2024-04-22 20:27] LABS: Glucose,Whole Blood 125 mg/dL (70-110)
[2024-04-22] MEDS: PREGABALIN 75 MG CAP PO SCH (20:45)
[2024-04-22] MEDS: DULoxetine HCL 60 MG CAPSULE.DR PO SCH (20:46)
[2024-04-22] MEDS: ALPRAZolam 0.25 MG TAB PO PRN (20:46)
[2024-04-22] MEDS: ARTIFICIAL TEARS-HYPROMELLOSE DROPS 15 ML BTL LEFT EYE PRN (20:46)
[2024-04-22] MEDS: ATORVASTATIN 80 MG TAB PO SCH (20:46)
[2024-04-22] MEDS: HEPARIN SODIUM,PORCINE 5,000 UNIT/ML 1 ML VIAL SQ SCH (20:46)
[2024-04-23] MEDS: KETOROLAC 15 MG/ML 1 ML VIAL IVP PRN (00:06)
[2024-04-23 03:19] VITALS: RESP 16
[2024-04-23 06:07] LABS: Glucose,Whole Blood 98 mg/dL (70-110)
[2024-04-23] MEDS: ASPIRIN 325 MG TAB PO SCH (08:49)
[2024-04-23 11:46] LABS: Glucose,Whole Blood 87 mg/dL (70-110)
--- NOTE | 2024-04-23 12:25 | CA ---
Transthoracic Echo Report Name: Clarissa Ardon Age: 64 Gender: F : 1960 Exam Date: 04/23/2024 08:50 Exam Location: [facility] Ht (in): 58 Wt (lb): 115 Ordering Physician: Amado Torres DO Attending/Referring Phys: [id number], Melissa Well Driller Helper Domi Shook RDCS Procedure CPT: Indications: Thrombus Cardiac Hx: Technical Quality: Good Contrast 1: Total Dose (mL): Contrast 2: Total Dose (mL): MEASUREMENTS (Male / Female) Normal Values 2D ECHO LV Diastolic Diameter PLAX 4.1 cm 4.2 - 5.9 / 3.9 - 5.3 cm LV Systolic Diameter PLAX 2.6 cm IVS Diastolic Thickness 0.8 cm 0.6 - 1.0 / 0.6 - 0.9 cm LVPW Diastolic Thickness 1.0 cm 0.6 - 1.0 / 0.6 - 0.9 cm LV Relative Wall Thickness 0.4 LVOT Diameter 2.0 cm Aortic Root Diameter 2.4 cm LV Diastolic Volume MOD BP 73.6 cm??? 67 - 155 / 56 - 104 cm??? LV Systolic Volume MOD BP 29.1 cm??? 22 - 58 / 19 - 49 cm??? LV Ejection Fraction MOD BP 60.5 % >= 55 % LV Cardiac Index MOD BP 2627.1 cm???/min???m??? LV Diastolic Volume MOD 4C 76.8 cm??? LV Systolic Volume MOD 4C 30.6 cm??? LV Ejection Fraction MOD 4C 60.1 % LV Cardiac Index MOD 4C 2727.7 cm???/min???m??? LV Diastolic Length 4C 7.9 cm LV Systolic Length 4C 6.5 cm LV Diastolic Volume MOD 2C 68.3 cm??? LV Systolic Volume MOD 2C 25.9 cm??? LV Ejection Fraction MOD 2C 62.1 % LV Cardiac Index MOD 2C 2505.5 cm???/min???m??? LV Diastolic Length 2C 8.2 cm LV Systolic Length 2C 7.0 cm Ascending Aorta Diameter 2.7 cm DOPPLER AV Peak Velocity 141.2 cm/s AV Peak Gradient 8.0 mmHg AV Mean Velocity 94.6 cm/s AV Mean Gradient 4.0 mmHg AV Velocity Time Integral 24.4 cm LVOT Peak Velocity 112.0 cm/s LVOT Peak Gradient 5.0 mmHg LVOT Velocity Time Integral 21.1 cm LVOT Stroke Volume 67.8 cm??? LVOT Stroke Volume Index 47.1 ml/m??? LVOT Cardiac Index 4004.7 cm???/min???m??? AV Area Cont Eq vti 2.8 cm??? AV Area Cont Eq pk 2.6 cm??? Mitral E Point Velocity 64.2 cm/s Mitral A Point Velocity 83.5 cm/s Mitral E to A Ratio 0.8 MV Deceleration Time 176.8 ms MV E' Velocity 4.2 cm/s Mitral E to MV E' Ratio 15.2 PV Peak Velocity 87.0 cm/s PV Peak Gradient 3.0 mmHg FINDINGS Left Ventricle Left ventricular ejection fraction is estimated at 60 %. Left ventricular cavity size normal. Left ventricular wall thickness normal. No obvious regional wall motion abnormalities. Right Ventricle Normal right ventricular size and function. Right Atrium Normal right atrial size. Left Atrium Normal left atrial size. Mitral Valve Structurally normal mitral valve. No evidence for mitral valve prolapse. No mitral stenosis. No mitral regurgitation. Aortic Valve Trileaflet aortic valve. No aortic stenosis. Mild aortic regurgitation. Tricuspid Valve Structurally normal tricuspid valve. No tricuspid stenosis. Trace tricuspid regurgitation. Pulmonic Valve Pulmonic valve not well visualized. No pulmonic regurgitation. No pulmonic stenosis. Pericardium No pericardial effusion. Aorta Normal size aortic root and proximal ascending aorta. CONCLUSIONS Left ventricular ejection fraction 60% No mitral regurgitation Mild aortic regurgitation Trace tricuspid regurgitation Previewed by: Dr. Arsalan Dawson DO (Electronically Signed) Final Date: 23 April 2024 12:24
[2024-04-23 13:16] VITALS: BMI 23.8
--- NOTE | 2024-04-23 15:49 | P.PN ---
Subjective Progress Note Date: 04/23/24 This is a pleasant 64-year-old female with medical history significant for TIA x 3, hyperlipidemia, gastroesophageal reflux disease, hypertension. Patient presents to the hospital with complaints of left-sided facial droop unable to close her left eye as well as drooling out of the right side of her mouth. Patient's family was concerned for stroke and brought her in for further evaluation. She is not having any focal deficits with equal strength in the upper and lower extremities no ataxia has been noted on examination. Patient does have a left facial droop noted. Patient had a brain CT that does show a small area in the right basal ganglia concerning for an infarct her CT angiography does not reveal any significant stenosis. She was admitted to the hospital with a consult placed to neurology. Noted that patient is already maintained on Plavix outpatient for her history of TIA. This has been resumed at this time. Patient will undergo a full stroke workup echocardiogram and EEG are ordered and pending as well as a brain MRI. Patient will need to be evaluated also by speech therapy. This was all discussed with family at the bedside and they have no further questions at this time. 04/23/2024 Is evaluated in follow-up on the medical floor she reports that she is still unable to close her left eye. Her left-sided facial droop does appear markedly better especially in the around her lip she is not having any swallowing difficulties. She is currently pending MRI her echocardiogram reveals normal LV function. EEG is also pending. patient does follow with Dr. Mcghee and has an appointment already scheduled for 06 May. Continue with a artificial tears and also can patch the eye as needed. REVIEW OF SYSTEMS: CONSTITUTIONAL: No fever, no malaise, no fatigue. HEENT: No recent visual problems or hearing problems. Denied any sore throat. CARDIOVASCULAR: No chest pain, orthopnea, PND, no palpitations, no syncope. PULMONARY: No shortness of breath, no cough, no hemoptysis. GASTROINTESTINAL: No diarrhea, no nausea, no vomiting, no abdominal pain. NEUROLOGICAL: No headaches, no weakness, no numbness. Cannot close left eye left-sided facial droop. PHYSICAL EXAMINATION: GENERAL: The patient is alert and oriented x3, not in any acute distress. Well developed, well nourished. HEENT: Pupils are round and equally reacting to light. EOMI. No scleral icterus. No conjunctival pallor. Normocephalic, atraumatic. No pharyngeal erythema. No thyromegaly. CARDIOVASCULAR: S1 and S2 present. No murmurs, rubs, or gallops. PULMONARY: Chest is clear to auscultation, no wheezing or crackles. ABDOMEN: Soft, nontender, nondistended, normoactive bowel sounds. No palpable organomegaly. MUSCULOSKELETAL: No joint swelling or deformity. EXTREMITIES: No cyanosis, clubbing, or pedal edema. NEUROLOGICAL: Gross neurological examination did not reveal any focal deficits. Strength 5 out of 5 upper and lower extremities bilaterally patient does have a left facial droop SKIN: No rashes. Assessment Acute stroke right basal ganglia patient has noted left sided facial droop, has been experiencing palpitations and increasing anxiety over the last few days Hyperlipidemia Hypertension, currently normotensive Hypothyroidism Hx of migraines Prior loop recorder was removed due to conflict with therapies she was receiving for chronic neck pain Hx of TIA x 3 in the past with no residuals. Diabetes Mellitus type 2 Anxiety GI prophylaxis DVT prophylaxis Plan Neurology consultation in place Echocardiogram, EEG, brain MRI have been ordered as part of full stroke work up. Pending hgb A1C; hold metformin and recommend accuchecks ACHS and sliding scale insulin Artifical tears ordered for the left eye and recommend to patch if needed for rest of the eye as patient has not been blinking her eye. Resume fioricet and ok for patient to take her ubrelvy from home for migraine if needed. Continue frequent neuro checks PT/OT and speech therapy have been consulted. Patient will need to discharge on combination of aspirin and plavix or change plavix to a different drug such as brilinta for stroke prevention. The impression and plan of care has been dictated by Damari Abad, Nurse Practitioner as directed. Dr. Lisset MD I have performed a history and physical examination and medical decision making of this patient, discussed the same with the dictator, and agree with the dictators assessment and plan as written, documented as a scribe. Based on total visit time, I have performed more than 50% of this visit. Objective - Vital Signs Vital signs: Vital Signs Temp 98.2 F 04/23/24 08:46 Pulse 89 04/23/24 08:46 Resp 16 04/23/24 08:46 BP 109/70 04/23/24 08:46 Pulse Ox 96 04/23/24 08:46 FiO2 Intake & Output 04/22/24 04/23/24 04/23/24 18:59 06:59 18:59 Intake Total 10 10 550 Balance 10 10 550 Weight 52.163 kg 51.8 kg Intake: IV 10 10 10 Invasive Line 1 10 10 10 Oral 540 Other: Voiding Method Toilet Toilet Toilet # Voids 1 - Labs CBC & Chem 7: 04/21/24 21:55 04/21/24 21:55 Labs: Abnormal Lab Results - Last 24 Hours (Table) 04/22/24 Range/Units 20:26 POC Glucose (mg/dL) 125 H (70-110) mg/dL Assessment and Plan Time with Patient: Less than 30
--- NOTE | 2024-04-23 16:00 | P.PN ---
Subjective Progress Note Date: 04/23/24 I am following-up with patient and feels she feels better. She continues to have left facial droop. She is pending to have MRI Brain. Objective - Vital Signs Vital signs: Vital Signs Temp 98.6 F 04/23/24 15:30 Pulse 93 04/23/24 15:30 Resp 16 04/23/24 15:30 BP 142/76 04/23/24 15:30 Pulse Ox 98 04/23/24 15:30 FiO2 Intake & Output 04/22/24 04/23/24 04/23/24 18:59 06:59 18:59 Intake Total 10 10 680 Balance 10 10 680 Weight 52.163 kg 51.8 kg 51.8 kg Intake: IV 10 10 20 Invasive Line 1 10 10 20 Oral 660 Other: Voiding Method Toilet Toilet Toilet # Voids 1 2 - Exam GENERAL: The patient is lying in bed and is not in acute distress. NEUROLOGICAL: Higher mental function: The patient is awake, alert, oriented to self, place and time. Patient is following commands. No aphasia and no neglect. Cranial nerves: The pupils are round, equal and reactive to light and accommodation. Visual nelson are full to confrontation throughout. Extraocular movement is intact no nystagmus is noted. Facial sensation is normal to touch throughout. Has left lower facial weakness and was able to open her eyes easily with resitance. Has decrease blinks on the left compared to right. Hearing is normal bilaterally to hand rub. Tongue is midline and moved [id number] without any difficulty. No dysarthria is noted. Shoulder shrug is normal bilaterally. Motor: The strength is 5 over 5 throughout. Normal tone and bulk. Cerebellum: Normal finger to nose heel to chin bilaterally. Sensation: Sensation is normal to touch throughout. Reflexes (right/left): 2+ throughout. Plantars are downgoing bilaterally. Some of the workup during this hospital visit consisted of: I reviewed the lab workup Serum alcohol is less than 10 Vitamin B12: 364 TSH: 3.03 HbA1c: 5.7 ammonia <9 CT of the head is reported as mild cerebral atrophy. There is subtotal possible 1 cm low-density in the inferior aspect of the right basal ganglia which could represent a small vessel infarct, age unknown. Otherwise the brain is otherwise unremarkable. Personally reviewed CT of the head regarding the hypodensity in the right basal ganglia I did see there is a hypodensity but again I agree of indeterminate age. Angiography of the head and neck was reported as no acute finding in the arteries of the neck or the head. 2D echo:EF 60%. - Labs CBC & Chem 7: 04/21/24 21:55 04/21/24 21:55 Labs: Abnormal Lab Results - Last 24 Hours (Table) 04/22/24 Range/Units 20:26 POC Glucose (mg/dL) 125 H (70-110) mg/dL Assessment and Plan Assessment: This is a 64-year-old woman who presents because of dizziness for the past few days and then yesterday she woke up noticing that her right face was heavy but in reality it turns that she was notified by her grandchild she is blinking less on the left eye and on examination she had left facial weakness. Acute left facial weakness with dizziness rule out stroke. CT of the head shows hypodensity in the right basal ganglia concern for stroke of indeterminate age. History of complicated migraine History of multiple TIAs Plan: MRI of the brain without is ordered and is pending Pending routine EEG Started on aspirin 325 mg daily by the ED team. She is on Plavix 75 mg daily at home. She was started on Lipitor 80 mg nightly for secondary prophylaxis by the ED physician. lipid panel pending Continue neurochecks Cardiac monitoring PT OT and BOARDING [employer]SE [employer] are consulted Defer the rest of the medical management to primary and other specialist DVT prophylaxis start the patient on subcu heparin 5000 every 12 hour The plan is discussed with patient and family members. Time with Patient: Less than 30
[2024-04-23 16:07] LABS: Chol/HDL Ratio 2.62 Ratio; LDL Cholesterol,Calculated 97.2 mg/dL (0.0-131.0)
[2024-04-23 16:46] LABS: Glucose,Whole Blood 98 mg/dL (70-110)
[2024-04-23 20:42] LABS: Glucose,Whole Blood 85 mg/dL (70-110)
--- NOTE | 2024-04-23 20:51 | EEG ---
ELECTROENCEPHALOGRAM REPORT CLINICAL HISTORY: This is a 64-year-old woman with a history of body shaking that she reports. The video EEG is performed to evaluate for any seizure or discharges. RELEVANT MEDICATIONS: 1. Xanax. 2. Cymbalta. 3. Lyrica. EEG TYPE: This is a routine 21-channel EEG with video using the 10/20 electrode placement system. DESCRIPTION: Wakefulness is only obtained. During awake state, the posterior-dominant rhythm consists of [id number] voltage of 9 to 9.5 hertz activity that is well modulated, well sustained. There is no physiological stage 2 sleep architecture. There is no focal slowing. Interictal and ictal are none. ACTIVATION PROCEDURE: Photic stimulation did not evoke a posterior driving response. There is no abnormality during the photic stimulation. Hyperventilation is not performed. CLINICAL INTERPRETATION: This is a normal routine EEG. There is no focal slowing, epileptiform discharge, or seizure on the EEG. A normal routine EEG does not rule underlying epilepsy. Clinical correlation is recommended. MMODL / IJN: [id number] /
[2024-04-24 06:13] LABS: Glucose,Whole Blood 121 mg/dL (70-110)
[2024-04-24 08:20] VITALS: PULSE 85
[2024-04-24] MEDS: FAMOTIDINE 20 MG TAB PO SCH (08:22)
[2024-04-24 11:13] LABS: Glucose,Whole Blood 108 mg/dL (70-110)
[2024-04-24 12:26] VITALS: BP 104/55; TEMP 98.3
--- NOTE | 2024-04-24 14:59 | MR ---
INDICATION: Patient age:Female; 64 years old; Reason for study: left facial weakness; PHH. COMPARISON: CT brain 04/21/2024, 04/01/2023, 04/16/2022, MR brain 08/25/2020. TECHNIQUE: Multi planar, multi sequence imaging was performed through the brain. The patient was then given 5 cc of Gadavist intravenously and multi planar, T1 fat-saturation images were obtained. FINDINGS: The schulte-white junctions, ventricular system, basal cisterns appear unremarkable. Mild cerebral volum e loss Diffusion-weighted imaging shows no evidence of restricted diffusion to suggest acute/subacute infarct. Intracranial arterial flow voids are maintained. Midline structures show no abnormality. Th ere are 3 stable T2/FLAIR hyperintense foci within the bilateral frontal lobe subcortical white matte r. Largest is within the left frontal lobe subcortical white matter measuring up to 6 mm (series 601, image 18). No corresponding enhancement identified. The susceptibility weighted images demonstrates a single focus of blooming artifact within the periventricular left frontal lobe white matter consist ent with remote microhemorrhage. After administration of gadolinium, no abnormal enhancement is seen. The bone marrow signal is within normal limits. The paranasal sinuses and globes are unremarkable. IMPRESSION: 1. No evidence of intracranial mass, acute/subacute infarct, or abnormal enhancement. 2. Stable nonspecific white matter changes, likely related to small vessel ischemic disease versus ot her etiologies.
--- NOTE | 2024-04-24 16:24 | P.PN ---
Subjective Progress Note Date: 04/24/24 I am following up with the patient and she feels there is improvement in her symptoms but completely resolved. Denies of any headache, nausea or vomiting. She stated that she had recent tooth infection recently and she was placed on prednisone about 2 weeks ago because of migraine which she usually gets placed on if he gets really severe. Denies any new neurological issues. Objective - Vital Signs Vital signs: Vital Signs Temp 98.3 F 04/24/24 12:00 Pulse 85 04/24/24 12:00 Resp 16 04/24/24 12:00 BP 104/55 04/24/24 12:00 Pulse Ox 93 L 04/24/24 12:00 FiO2 Intake & Output 04/23/24 04/24/24 04/24/24 18:59 06:59 18:59 Intake Total 917 20 740 Balance 917 20 740 Weight 51.8 kg 52 kg Intake: IV 20 20 20 Invasive Line 1 20 20 20 Oral [id number] Other: Voiding Method Toilet Toilet # Voids 2 - Exam GENERAL: The patient is lying in bed and is not in acute distress. NEUROLOGICAL: Higher mental function: The patient is awake, alert, oriented to self, place and time. Patient is following commands. No aphasia and no neglect. Cranial nerves: The pupils are round, equal and reactive to light and accommodation. Visual nelson are full to confrontation throughout. Extraocular movement is intact no nystagmus is noted. Facial sensation is normal to touch throughout. Has left lower facial weakness and was able to open her eyes easily with resitance. Has decrease blinks on the left compared to right. Hearing is normal bilaterally to hand rub. Tongue is midline and moved [id number] without any difficulty. No dysarthria is noted. Shoulder shrug is normal bilaterally. Motor: The strength is 5 over 5 throughout. Normal tone and bulk. Cerebellum: Normal finger to nose heel to chin bilaterally. Sensation: Sensation is normal to touch throughout. Reflexes (right/left): 2+ throughout. Plantars are downgoing bilaterally. Some of the workup during this hospital visit consisted of: I reviewed the lab workup Serum alcohol is less than 10 Vitamin B12: 364 TSH: 3.03 HbA1c: 5.7 ammonia <[address] of the head is reported as mild cerebral atrophy. There is subtotal possible 1 cm low-density in the inferior aspect of the right basal ganglia which could represent a small vessel infarct, age unknown. Otherwise the brain is otherwise unremarkable. Personally reviewed CT of the head regarding the hypodensity in t he right basal ganglia I did see there is a hypodensity but again I agree of indeterminate age. Angiography of the head and neck was reported as no acute finding in the arteries of the neck or the head. 2D echo:EF 60%. Routine EEG is normal MRI of the brain is reported as no evidence of intracranial mass, acute/subacute infarct or abnormal enhancement. Stable nonspecific white matter changes, l ikely related to small vessel ischemic disease versus other etiologies. - Labs CBC & Chem 7: 04/21/24 21:55 04/21/24 21:55 Labs: Abnormal Lab Results - Last 24 Hours (Table) 04/24/24 Range/Units 06:11 POC Glucose (mg/dL) 121 H (70-110) mg/dL Assessment and Plan Assessment: This is a 64-year-old woman who presents because of dizziness for the past few days and then yesterday she woke up noticing that her right face was heavy but in reality it turns that she was notified by her grandchild she is blinking less on the left eye and on examination she had left facial weakness. CT of the head shows hypodensity in the right basal ganglia concern for stroke of indeterminate age. Acute left upper and lower facial weakness with dizziness---dizziness has resolved. MRI Brain is negative for acute or subcute stroke or mass. 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 She is afebrile and normal wbc. History of complicated migraine History of multiple TIAs Plan: She is on Plavix 75 mg daily at home. In our facility she was started on aspirin 325 mg daily by the ED physician and from a neurologic perspective she does not have any acute or subacute stroke and does not need aspirin. She was also started on Lipitor 80 mg nightly by the ED physician for secondary prophylaxis and pulmonary's perspective can be on the lower dose such as 20 mg. I ordered Lyme test antibody Recommend placing the patient on prednisone 60 mg daily for 7 days as well as valacyclovir 1 g 3 times daily for 7 days. Continue neurochecks Cardiac monitoring PT OT and DESIGN ENGINEERING INTERN are consulted Defer the rest of the medical management to primary and other specialist Recommend the patient to follow-up with a neurologist as an outpatient within 1 to 2 weeks DVT prophylaxis start the patient on subcu heparin 5000 every 12 hour The plan is discussed with patient and primary team N.P. Otherwise, there is no further neurological work-up. Time with Patient: Less than 30
--- NOTE | 2024-04-25 16:30 | P.DS ---
Providers Date of admission: 04/22/24 00:36 Attending physician: Jocelin Najera Consults: 04/22/24 00:36 Consult Physician Routine Consulting Provider: Pavan Awad Consult Reason/Comments: known Do you want consulting provider notified?: Yes Primary care physician: Pratik Martines Hospital Course: Final Diagnosis Acute stroke right basal ganglia patient has noted left sided facial droop, has been experiencing palpitations and increasing anxiety over the last few days There is concern this could actually be [place] Palsy and not stroke as the brain MRI was negative. Hyperlipidemia Hypertension, currently normotensive Hypothyroidism Hx of migraines Prior loop recorder was removed due to conflict with therapies she was receiving for chronic neck pain Hx of TIA x 3 in the past with no residuals. Diabetes Mellitus type 2 Anxiety Discharge Dispostion Stable for discharge home recommend to follow up with ophthalmology and neurology. Patient apparently had a tooth infection recently. She will continue prednisone and acyclovir for the bells palsy. Patient to see her PCP Dr Martines has an appt made for Apr 30. Hospital Course This is a pleasant 64-year-old female with medical history significant for TIA x 3, hyperlipidemia, gastroesophageal reflux disease, hypertension. Patient presents to the hospital with complaints of left-sided facial droop unable to close her left eye as well as drooling out of the right side of her mouth. Patient's family was concerned for stroke and brought her in for further evaluation. She is not having any focal deficits with equal strength in the u pper and lower extremities no ataxia has been noted on examination. Patient does have a left facial droop noted. Patient had a brain CT that does show a small area in the right basal ganglia concerning for an infarct her CT angiography does not reveal any significant stenosis. She was admitted to the hospital with a consult placed to neurology. Noted that patient is already maintained on Plavix outpatient for her history of TIA. This has been resumed at this time. Patient will undergo a full stroke workup echocardiogram and EEG are ordered and pending as well as a brain MRI. Patient will need to be evaluated also by speech therapy. This was all discussed with family at the bedside and they have no further questions at this time. Her left-sided facial droop does appear markedly better especially in the around her lip she is not having any swallowing difficulties. MRI is negative for acute stroke. echocardiogram reveals normal LV function. EEG is also pending. patient does follow with Dr. Mcghee and has an appointment already scheduled for 06 May. Continue with a artificial tears and also can patch the eye as needed. Neurology this this is [place] palsy and we will treat with prednisone and acyclovir and patient can be discharged home. Please see medication reconciliation for a list of current medications. Thank you for allowing us to participate in the care of this patient. The impression and plan of care has been dictated by Damari Abad, Nurse Practitioner as directed. Dr. Lisset MD I have performed a history and physical examination and medical decision making of this patient, discussed the same with the dictator, and agree with the dictators assessment and plan as written, documented as a scribe. Based on total visit time, I have performed more than 50% of this visit. Patient Condition at Discharge: Fair Plan - Discharge Summary Discharge Rx Participant: No New Discharge Prescriptions: New Atorvastatin [Lipitor] 80 mg PO HS #30 tab Famotidine [Pepcid] 20 mg PO DAILY #30 tab predniSONE 60 mg PO DAILY 7 Days #14 tab valACYclovir HCL [Valacyclovir] 1,000 mg PO BID 7 Days #14 tab Continue DULoxetine HCL [Cymbalta] 60 mg PO BID ALPRAZolam [Xanax] 0.5 mg PO BID PRN PRN Reason: Anxiety Pregabalin [Lyrica] 150 mg PO HS Butalb/Acetaminophen/Caffeine [Fioricet 50-325-40] 1 - 2 tab PO Q6H PRN PRN Reason: Migraine Headache Pregabalin [Lyrica] 75 mg PO HS PRN PRN Reason: sleep/pain Ubrogepant [Ubrelvy] 100 mg PO DAILY PRN PRN Reason: Migraine Headache Ketorolac 60mg/2ml Injection 60 mg INJ DAILY PRN PRN Reason: Migraine Headache metFORMIN HCL ER [Glucophage XR] 500 mg PO W/SUPPER Hyoscyamine Sulfate [Hyoscyamine Sulfate SL] 0.125 mg SL QID PRN PRN Reason: cramps Clopidogrel Bisulfate [Plavix] 75 mg PO DAILY Ibuprofen [Motrin] 800 mg PO Q8H PRN PRN Reason: Pain Or Fever > 100.5 Discontinued amLODIPine [Norvasc] 5 mg PO HS niMODipine [Nimotop] 30 mg PO DAILY Discharge Medication List DULoxetine HCL [Cymbalta] 60 mg PO BID 12/22/14 [History] ALPRAZolam [Xanax] 0.5 mg PO BID PRN 05/18/19 [History] Pregabalin [Lyrica] 150 mg PO HS 05/18/19 [History] Butalb/Acetaminophen/Caffeine [Fioricet 50-325-40] 1 - 2 tab PO Q6H PRN 11/18/21 [History] Pregabalin [Lyrica] 75 mg PO HS PRN 11/18/21 [History] Clopidogrel Bisulfate [Plavix] 75 mg PO DAILY 04/14/22 [History] Ketorolac 60mg/2ml Injection 60 mg INJ DAILY PRN 04/14/22 [History] Ubrogepant [Ubrelvy] 100 mg PO DAILY PRN 04/14/22 [History] Hyoscyamine Sulfate [Hyoscyamine Sulfate SL] 0.125 mg SL QID PRN 04/01/23 [History] Ibuprofen [Motrin] 800 mg PO Q8H PRN 04/01/23 [History] metFORMIN HCL ER [Glucophage XR] 500 mg PO W/SUPPER 04/01/23 [History] Atorvastatin [Lipitor] 80 mg PO HS #30 tab 04/24/24 [Rx] Famotidine [Pepcid] 20 mg PO DAILY #30 tab 04/24/24 [Rx] predniSONE 60 mg PO DAILY 7 Days #14 tab 04/24/24 [Rx] valACYclovir HCL [Valacyclovir] 1,000 mg PO BID 7 Days #14 tab 04/24/24 [Rx] Follow up Appointment(s)/Referral(s): Madeline Mcghee MD [STAFF PHYSICIAN] - 05/06/24 Pratik Martines DO [Primary Care Provider] - 04/30/24 2:40 pm Nghia Plata DO [STAFF PHYSICIAN] - 1 Week (Neurology ) Patient Instructions/Handouts: Choudhury Palsy (DC) Activity/Diet/Wound Care/Special Instructions: Keep your appointment with Dr. Mcghee Continue to use lubricating eye gtts to the left eye as needed Follow up with Dr. Plata neurology on discharge 1 to 2 weeks Neurology feels this may be more likely [place] Palsy and recommending course of prednisone and acyclovir on discharge. Follow up with your PCP Dr. Pratik Martines on DC. Discharge Disposition: HOME SELF-CARE
== END 2024-04-24 16:31 | disposition home or self-care (01) | DRG 74 ==
LOC: EC 21:00 → 3SCARD 04-22 00:36
PROVIDERS: ADMIT Hospitalist; ATTEND Hospitalist
DX: G51.0 Bell's palsy (principal); E03.9 Hypothyroidism, unspecified; E78.5 Hyperlipidemia, unspecified; I10 Essential (primary) hypertension; F41.9 Anxiety disorder, unspecified; K21.9 Gastro-esophageal reflux disease without esophagitis; E11.9 Type 2 diabetes mellitus without complications; G43.909 Migraine, unspecified, not intractable, without status migrainosus; Z86.73 Personal history of transient ischemic attack (TIA), and cerebral infarction without residual deficits; Z79.02 Long term (current) use of antithrombotics/antiplatelets; Z79.84 Long term (current) use of oral hypoglycemic drugs; Z79.899 Other long term (current) drug therapy
CPT/HCPCS: 36415; 70450; 70496; 70498; 70553; 80053; 80061; 80320; 82140; 82550; 82607; 83036; 84443; 84484; 85025; 85610; 85730; 86618; 93005; 93306; 95816; 96360; 96361; 99291